=== PATIENT | female | born 1965 | race Two or more races ===

== ENCOUNTER 2020-05-10 12:50 | Outpatient (REF) | payer OTHER, SELFPAY ==
[2020-05-10 14:01] LABS: MANUAL DIFF FLAG NO
[2020-05-10 14:07] LABS: Basophils Percent Auto 0.6 % (0-2); Eosinophils Absolute Auto 0.1 X10*3/uL (0.0-0.4); Eosinophils Percent Auto 1.7 % (0-4); Hematocrit 39.4 % (37-47); Hemoglobin 11.6 g/dl (12.0-16.0); Imm Gran Abs Auto 0.02 X10*3/uL (0.00-0.03); Imm Gran Pct Auto 0.3 % (0.0-0.4); Lymphocytes Absolute Auto 2.4 X10*3/uL (1.2-4.9); Mean Corpuscular HGB Conc 29.4 g/dl (31.0-35.0); Mean Corpuscular Hemoglobin 24.1 pg (27.0-33.0); Mean Corpuscular Volume 81.7 fL (80-98); Mean Platelet Volume 9.6 fL (9.4-12.3); Monocytes Absolute Auto 0.6 X10*3/uL (0.1-1.2); Monocytes Percent Auto 8.9 % (2-11); Neutrophils Absolute Auto 3.8 X10*3/uL (2.0-8.3); Neutrophils Percent Auto 54.5 % (45-73); Platelet Count 418 X10*3/uL (160-400); Red Blood Count 4.82 X10*6/uL (4.20-5.50); Red Cell Distribution Width 14.1 % (11.0-16.0); White Blood Count 7.1 X10*3/uL (4.8-10.8)
[2020-05-10 14:40] LABS: Alanine Aminotransferase 14 U/L (0-31); Albumin Level 4.1 g/dL (3.5-5.0); Alkaline Phosphatase 183 U/L (39-117); Anion Gap 10 (12-20); Aspartate Amino Transferase 18 U/L (5-31); Bilirubin Total 0.5 mg/dL (0.0-1.0); Blood Urea Nitrogen 11 mg/dL (9-16); Calcium 9.1 mg/dL (8.4-10.2); Carbon Dioxide 28 mmol/L (22-29); Chloride 107 mmol/L (96-108); Cholesterol 172 mg/dL; Estimated Glomerular Filt Rate > 60; Glucose Fasting 69 mg/dL (60-99); HDL Cholesterol 62 mg/dL; Iron 40 mcg/dL (30-160); LDL Cholesterol Calculated 96 mg/dl; Percent Iron Saturation 8 % (15-50); Sodium 141 mmol/L (135-145); Total Iron Binding Capacity 503 mcg/dL (228-428); Total Protein 6.7 g/dL (6.5-8.0); Triglycerides 74 mg/dL; Unsaturated Iron Binding 463 ug/dL
[2020-05-10 15:02] LABS: Ferritin 4 ng/mL (10-250); Thyroid Stimulating Hormone 1.36 mIU/mL (0.32-4.0)
== END 2020-05-10 12:51 | disposition home or self-care (01) ==
LOC: HO.HMGCLDS 12:50
PROVIDERS: PCP Physician Assistant; Visit Provider Physician Assistant
DX: I10 Essential (primary) hypertension (principal); D50.9 Iron deficiency anemia, unspecified
CPT/HCPCS: 36415; 80053; 80061; 82728; 83540; 84443; 85025

== ENCOUNTER 2021-10-15 12:50 | Outpatient (REF) | payer OTHER, SELFPAY | END 2021-10-15 12:51 | disposition home or self-care (01) | LOC: HO.MRI 12:50 | PROVIDERS: PCP Internal Medicine; Visit Provider Internal Medicine | DX: Z13.89 Encounter for screening for other disorder (principal) ==

== ENCOUNTER 2021-11-21 11:11 | Outpatient (REF) | payer OTHER, SELFPAY ==
--- NOTE | ~2021-11-21 | XR_ITS ---
EXAMINATION: XR CHEST CLINICAL INFORMATION: Pneumonia. COMPARISON: None TECHNIQUE: 2 views of the chest were obtained. FINDINGS: There is some central bronchial wall thickening present which may be related to pulmonary vascular congestion or reactive airways disease which may be inflammatory or infectious in nature such as viral or atypical pneumonitis. The cardiopericardial silhouette is enlarged. No evidence of airspace edema. No confluent parenchymal disease. No pneumothorax or pleural effusion. XR/XR chest 2V IMPRESSION: Mild central interstitial disease which may be related to pulmonary vascular congestion or reactive airways disease. Cardiomegaly.
== END 2021-11-21 11:12 | disposition home or self-care (01) ==
LOC: HO.XRAY 11:11
PROVIDERS: PCP Internal Medicine; Visit Provider Internal Medicine
DX: J18.9 Pneumonia, unspecified organism (principal)
CPT/HCPCS: 71046

== ENCOUNTER 2022-01-08 13:59 | Outpatient (REF) | payer OTHER, SELFPAY ==
--- NOTE | ~2022-01-08 | XR_ITS ---
EXAMINATION: XR CHEST CLINICAL INFORMATION: Dyspnea. COMPARISON: None TECHNIQUE: Chest radiograph dated from 11/21/2021. FINDINGS: Stable cardiomegaly. Worsening pulmonary aeration with increased central vasculature engorgement and reticulation. No dense focal airspace opacity. No pleural effusion or pneumothorax. No acute osseous abnormalities. XR/XR chest 2V IMPRESSION: Increased interstitial prominence and central vasculature engorgement which are nonspecific and could be associated with worsening pulmonary edema or atypical infections.
== END 2022-01-08 14:00 | disposition home or self-care (01) ==
LOC: HO.XRAY 13:59
PROVIDERS: PCP Internal Medicine; Visit Provider Internal Medicine Pulmonary Disease
DX: R06.00 Dyspnea, unspecified (principal); G47.33 Obstructive sleep apnea (adult) (pediatric)
CPT/HCPCS: 71046; 99202

== ENCOUNTER → 2022-02-05 12:31 | Outpatient (REF) | payer OTHER, SELFPAY | LOC: HO.SL 12:31 | PROVIDERS: PCP Internal Medicine; Visit Provider Internal Medicine Pulmonary Disease | DX: G47.33 Obstructive sleep apnea (adult) (pediatric) (principal); R06.00 Dyspnea, unspecified | CPT/HCPCS: 95806 ==

== ENCOUNTER → 2022-03-03 13:42 | Outpatient (REF) | payer OTHER, SELFPAY ==
--- NOTE | 2022-03-03 13:45 | CA_ITS ---
Transthoracic Echocardiogram Patient (Last, First, Middle): Montserrat Yates, Gender: Female Date of : 1965 Age: 56 Procedure Date: 03/03/2022 Procedure Type: Transthoracic Echocardiogram Location: OP Height: 152.4 cm Weight: 83.92 kg BSA: 1.81 m2 Heart Rate: bpm BP: 134 / 79 mmHg Mill Stenciler: Referring MD: Noe Puga MD Symptoms: R06.00 - Dyspnea, unspecified Study Quality: Fair ECG Rhythm: Sinus Conclusions: - The left ventricular systolic function is severely decreased. The calculated ejection fraction is 11% by biplane method. - There is mild mitral valve regurgitation. - Mild pulmonary hypertension is present. Findings Procedure Information Contrast agent, definity, is being given per protocol without apparent complications. Left Ventricle Moderately increased left ventricular cavity size. There is normal left ventricular wall thickness. The left ventricular systolic function is severely decreased. The calculated ejection fraction is 11% by biplane method. There is severe global hypokinesis. E/E prime ratio is >15, consistent with elevated filling pressures. Evidence suggests grade II (moderate) diastolic dysfunction. Right Ventricle Normal right ventricular cavity size and systolic function. Atria The left atrium is moderately dilated. The right atrium is normal in size. Aortic Valve There is a normal trileaflet aortic valve. There is no aortic valve stenosis. There is trace (trivial) aortic valve regurgitation. Mitral Valve The mitral valve appears normal. There is mild mitral valve regurgitation. There is no mitral valve stenosis. Pulmonic Valve The pulmonic valve is likely normal. Tricuspid Valve Normal tricuspid valve structure. There is mild tricuspid valve regurgitation. The right ventricular systolic pressure is 47 mmHg. Mild pulmonary hypertension is present. Great Vessels The aortic annulus, sinuses of valsalva, and asc aorta are normal in size. Venous The inferior vena cava is mildly dilated and collapses less than 50% with inspiration. Pericardium/Pleural There is a trivial pericardial effusion. Prior Study Comparison No prior study available for comparison. [facility] Measurements 2D Linear Measurements IVSd: 0.90 0.6-0.9/0.6-1.0 cm LVIDd: 6.53 3.9-5.3/4.2-5.9 cm LVIDd Index: 3.61 2.4-3.2/2.2-3.1 cm/m2 LVIDs: 5.81 2.0-3.6 cm LVPWd: 0.91 0.7-1.1 cm Ao Root: 2.80 2.1-3.5 cm LA Diam: 4.30 2.7-3.8/3.0-4.0 cm LAIDs Index: 2.38 1.5-2.3 cm/m2 LV Mass: 311.98 67-162/88-224 g LV Mass Index: 172.36 43-95/49-115 g/m2 LVOT Diam: 1.90 3.0+(-)1.3 cm 2D Systolic Function EF 4C: 12.20 >55% EF 2C: 9.82 >55% EF BiP: 10.90 >55% Mitral Valve MV Pk E: 1.21 MV PK A: 1.03 MV Decel Time: 100.00 E/A: 1.20 E'Lateral: 6.85 E'Medial: 6.85 E/E' Med: 17.70 E/E' Lat: 17.70 PHT: 29.00 MVA PHT: 7.59 Decel Baker: 12.04 Aortic Valve AoV Pk Edgardo: 1.26 AoV Mn Edgardo: 0.81 AoV VTI: 0.22 AoV Pk Grad: 6.00 Aov Mn Grad: 3.00 MADELINE Cont.VTI: 1.74 LVOT LVOT Pk Edgardo: 0.70 LVOT Mn Edgardo: 0.48 LVOT VTI: 0.14 LVOT Pk Grad: 2.00 LVOT Mn Grad: 1.00 LVOT Diam: 1.90 LVOT Area: 2.84 Diastolic Function MV Pk E: 1.21 MV Pk A: 1.03 E/A: 1.20 E'Medial: 6.85 E/E' Med: 17.70 E' Laterial: 6.85 E/E' Lat: 17.70 Right Ventricle TAPSE (mm): 22.00 TVS' Edgardo: 9.00 Tricuspid Valve TR Pk Edgardo: 2.84 TR Pk Grad: 32.00 RA Press: 15.00 RVSP: 47.00 Great Vessels Aorta Ao Root-2D: 2.80 2.0-3.7 cm Ao Asc: 3.00 2.1-3.4 cm Pulmonary Valve PV Pk Edgardo: 0.98 Peak PV Grad: 4.00 Updated in Other Vendor System with Status of Final Luis Erickson MD electronically signed on 03/04/2022 11:14:33 AM with status of Final
== END ==
LOC: HO.CARD 13:42
PROVIDERS: PCP Internal Medicine; Visit Provider Internal Medicine Pulmonary Disease
DX: R06.00 Dyspnea, unspecified (principal)
CPT/HCPCS: 93306; Q9957

== ENCOUNTER → 2022-03-05 13:46 | Outpatient (BNVA) | payer OTHER, SELFPAY | PROVIDERS: PCP Internal Medicine; Visit Provider Internal Medicine | DX: I42.9 Cardiomyopathy, unspecified (principal); I11.0 Hypertensive heart disease with heart failure; I50.43 Acute on chronic combined systolic (congestive) and diastolic (congestive) heart failure; I44.7 Left bundle-branch block, unspecified | CPT/HCPCS: 93005; 99202 ==

== ENCOUNTER 2022-04-02 13:32 | Outpatient (REF) | payer OTHER, SELFPAY ==
[2022-04-02 15:50] LABS: Hematocrit 36.2 % (37.0-47.0); Hemoglobin 10.2 g/dl (12.0-16.0); Mean Corpuscular HGB Conc 28.2 g/dl (31.0-35.0); Mean Corpuscular Hemoglobin 20.5 pg (27.0-33.0); Mean Corpuscular Volume 72.8 fL (80.0-98.0); Mean Platelet Volume 9.8 fL (9.4-12.3); Platelet Count 498 X10*3/uL (160-400); Red Blood Count 4.97 X10*6/uL (4.20-5.50); White Blood Count 7.1 X10*3/uL (4.8-10.8)
[2022-04-02 15:53] LABS: Prothrombin Time 11.3 SEC (10.0-13.1)
[2022-04-02 16:13] LABS: Anion Gap 15 (12-20); Blood Urea Nitrogen 12 mg/dL (9-16); Calcium 8.6 mg/dL (8.4-10.2); Carbon Dioxide 25 mmol/L (22-29); Chloride 104 mmol/L (96-108); Estimated Glomerular Filt Rate > 60; Glucose Random 99 mg/dL (60-115); Potassium 4.2 mmol/L (3.3-5.1); Sodium 140 mmol/L (135-145)
== END 2022-04-02 13:33 | disposition home or self-care (01) ==
LOC: HO.LAB 13:32
PROVIDERS: Absent Provider Internal Medicine; PCP Internal Medicine; Visit Provider Internal Medicine Pulmonary Disease
DX: I42.9 Cardiomyopathy, unspecified (principal); R06.00 Dyspnea, unspecified; G47.33 Obstructive sleep apnea (adult) (pediatric)
CPT/HCPCS: 36415; 80048; 85027; 85610; 99212

== ENCOUNTER 2022-05-20 12:37 | Outpatient (REF) | payer OTHER, SELFPAY ==
[2022-05-20 13:03] LABS: MANUAL DIFF FLAG NO
[2022-05-20 13:58] LABS: Basophils Percent Auto 0.3 % (0-2); Eosinophils Absolute Auto 0.1 X10*3/uL (0.0-0.4); Eosinophils Percent Auto 1.1 % (0-4); Hematocrit 32.7 % (37.0-47.0); Hemoglobin 9.3 g/dl (12.0-16.0); Imm Gran Abs Auto 0.02 X10*3/uL (0.00-0.03); Imm Gran Pct Auto 0.3 % (0.0-0.4); Lymphocytes Percent Auto 28.2 % (20-40); Mean Corpuscular HGB Conc 28.4 g/dl (31.0-35.0); Mean Corpuscular Hemoglobin 20.3 pg (27.0-33.0); Mean Corpuscular Volume 71.2 fL (80.0-98.0); Mean Platelet Volume 9.4 fL (9.4-12.3); Monocytes Absolute Auto 0.5 X10*3/uL (0.1-1.2); Monocytes Percent Auto 7.4 % (2-11); Neutrophils Absolute Auto 4.5 x10*3/uL (2.0-8.3); Neutrophils Percent Auto 62.7 % (45-73); Platelet Count 397 X10*3/uL (160-400); Red Blood Count 4.59 X10*6/uL (4.20-5.50); Red Cell Distribution Width 18.5 % (11.0-16.0); White Blood Count 7.1 X10*3/uL (4.8-10.8)
[2022-05-20 14:01] LABS: Prothrombin Time 11.9 SEC (10.0-13.1)
[2022-05-20 14:13] LABS: Anion Gap 13 (12-20); Blood Urea Nitrogen 16 mg/dL (9-16); Calcium 8.4 mg/dL (8.4-10.2); Carbon Dioxide 25 mmol/L (22-29); Chloride 105 mmol/L (96-108); Estimated Glomerular Filt Rate > 60; Glucose Random 130 mg/dL (60-115); Potassium 4.1 mmol/L (3.3-5.1); Sodium 139 mmol/L (135-145)
== END 2022-05-20 12:38 | disposition home or self-care (01) ==
LOC: HO.LAB 12:37
PROVIDERS: PCP Internal Medicine; Visit Provider Internal Medicine
DX: I42.9 Cardiomyopathy, unspecified (principal)
CPT/HCPCS: 36415; 80048; 85025; 85610

== ENCOUNTER → 2022-06-08 12:23 | Outpatient (BNVA) | payer OTHER, SELFPAY | PROVIDERS: PCP Internal Medicine; Referring Provider Internal Medicine; Visit Provider Internal Medicine | DX: I42.9 Cardiomyopathy, unspecified (principal); I44.7 Left bundle-branch block, unspecified; I10 Essential (primary) hypertension | CPT/HCPCS: 99212 ==

== ENCOUNTER → 2022-06-10 07:34 | Outpatient (REF) | payer OTHER, SELFPAY ==
--- NOTE | 2022-06-10 07:39 | CA_ITS ---
Transthoracic Echocardiogram Patient (Last, First, Middle): Montserrat Yates, Gender: Female Date of : 1965 Age: 56 Procedure Date: 06/10/2022 Procedure Type: Transthoracic Echocardiogram Location: OP Height: 152.4 cm Weight: 81.65 kg BSA: 1.78 m2 Heart Rate: 104 bpm BP: 115 / 80 mmHg Global Technical Writer: RODRI Referring MD: Lusi Erickson MD Symptoms: I42.9 - Cardiomyopathy, unspecified Study Quality: Fair/Contrast ECG Rhythm: Tachycardia Conclusions: - The left ventricular systolic function is severely decreased. The visually estimated ejection fraction is between 10-15%. Findings Procedure Information Contrast agent, definity, is being given per protocol without apparent complications. Left Ventricle Moderately increased left ventricular cavity size. The left ventricular systolic function is severely decreased. The visually estimated ejection fraction is between 10-15%. There is severe global hypokinesis. Prior Study Comparison No significant change compared to prior study dated: 03/03/2022. Measurements 2D Linear Measurements IVSd: 0.79 0.6-0.9/0.6-1.0 cm LVIDd: 6.46 3.9-5.3/4.2-5.9 cm LVIDd Index: 3.63 2.4-3.2/2.2-3.1 cm/m2 LVIDs: 6.29 2.0-3.6 cm LVPWd: 0.99 0.7-1.1 cm LV Mass: 302.12 67-162/88-224 g LV Mass Index: 169.73 43-95/49-115 g/m2 LVOT Diam: 1.90 3.0+(-)1.3 cm 2D Systolic Function EF 4C: 22.40 >55% EF 2C: 8.62 >55% EF BiP: 16.50 >55% LVOT LVOT Pk Edgardo: 1.01 LVOT Mn Edgardo: 0.68 LVOT VTI: 0.12 LVOT Pk Grad: 4.00 LVOT Mn Grad: 2.00 LVOT Diam: 1.90 LVOT Area: 2.84 Updated in Other Vendor System with Status of Final Luis Erickson MD electronically signed on 06/11/2022 4:02:34 PM with status of Final
== END ==
LOC: HO.CARD 07:34
PROVIDERS: PCP Internal Medicine; Visit Provider Internal Medicine
DX: I42.9 Cardiomyopathy, unspecified (principal)
CPT/HCPCS: 93308; Q9957

== ENCOUNTER 2022-08-27 09:52 | Outpatient (REF) | payer OTHER, SELFPAY ==
[2022-08-27 10:07] LABS: MANUAL DIFF FLAG NO
[2022-08-27 11:03] LABS: Basophils Percent Auto 0.6 % (0-2); Eosinophils Absolute Auto 0.2 X10*3/uL (0.0-0.4); Eosinophils Percent Auto 2.2 % (0-4); Hematocrit 36.8 % (37.0-47.0); Hemoglobin 10.3 g/dl (12.0-16.0); Imm Gran Abs Auto 0.02 X10*3/uL (0.00-0.03); Imm Gran Pct Auto 0.3 % (0.0-0.4); Lymphocytes Absolute Auto 1.7 X10*3/uL (1.2-4.9); Lymphocytes Percent Auto 25.1 % (20-40); Mean Corpuscular Hemoglobin 20.2 pg (27.0-33.0); Mean Platelet Volume 9.4 fL (9.4-12.3); Monocytes Absolute Auto 0.7 X10*3/uL (0.1-1.2); Monocytes Percent Auto 10.8 % (2-11); Neutrophils Absolute Auto 4.2 x10*3/uL (2.0-8.3); Platelet Count 299 X10*3/uL (160-400); Red Blood Count 5.11 X10*6/uL (4.20-5.50); Red Cell Distribution Width 21.5 % (11.0-16.0); White Blood Count 6.9 X10*3/uL (4.8-10.8)
[2022-08-27 11:05] LABS: B Type Natriuretic Peptide 596 pg/mL (<100)
[2022-08-27 11:06] LABS: Anion Gap 10 (12-20); Blood Urea Nitrogen 12 mg/dL (9-16); Calcium 8.9 mg/dL (8.4-10.2); Carbon Dioxide 27 mmol/L (22-29); Chloride 106 mmol/L (96-108); Estimated Glomerular Filt Rate > 60; Glucose Random 89 mg/dL (60-115); Potassium 4.6 mmol/L (3.3-5.1); Sodium 138 mmol/L (135-145)
== END 2022-08-27 09:53 | disposition home or self-care (01) ==
LOC: HO.LAB 09:52
PROVIDERS: PCP Internal Medicine; Visit Provider Internal Medicine
DX: I42.9 Cardiomyopathy, unspecified (principal); D64.9 Anemia, unspecified; K21.9 Gastro-esophageal reflux disease without esophagitis; I44.7 Left bundle-branch block, unspecified; I10 Essential (primary) hypertension; Z95.810 Presence of automatic (implantable) cardiac defibrillator; Z79.899 Other long term (current) drug therapy
CPT/HCPCS: 36415; 80048; 83880; 85025; 99212

== ENCOUNTER → 2022-11-16 13:47 | Outpatient (BNVA) | payer OTHER, SELFPAY | PROVIDERS: PCP Internal Medicine; Visit Provider Internal Medicine ==

== ENCOUNTER → 2022-12-14 13:10 | Outpatient (BNVA) | payer OTHER, SELFPAY | PROVIDERS: PCP Internal Medicine; Referring Provider Internal Medicine; Visit Provider Nurse Practitioner Family | DX: I42.9 Cardiomyopathy, unspecified (principal); I44.7 Left bundle-branch block, unspecified; I11.0 Hypertensive heart disease with heart failure; I50.43 Acute on chronic combined systolic (congestive) and diastolic (congestive) heart failure; Z45.02 Encounter for adjustment and management of automatic implantable cardiac defibrillator | CPT/HCPCS: 99212 ==

== ENCOUNTER → 2022-12-23 14:29 | Outpatient (REF) | payer OTHER, SELFPAY ==
--- NOTE | 2022-12-23 14:32 | CA_ITS ---
Transthoracic Echocardiogram Patient (Last, First, Middle): Montserrat Yates, Gender: Female Date of : 1965 Age: 57 Procedure Date: 12/23/2022 Procedure Type: Transthoracic Echocardiogram Location: OP Height: 149.86 cm Weight: 88.45 kg BSA: 1.82 m2 Heart Rate: bpm BP: 116 / 68 mmHg Dressmaking Teacher: TO Referring MD: Cathy Mc CHIEF CARDIOPULMONARY TECHNOLOGISTMolly Symptoms: I42.9 - Cardiomyopathy, unspecified Study Quality: Fair/Contrast Conclusions: - The left ventricular systolic function is severely decreased. The visually estimated ejection fraction is between 10-15%. Findings Procedure Information Contrast agent, definity, is being given per protocol without apparent complications. Left Ventricle Severely increased left ventricular cavity size. The left ventricular systolic function is severely decreased. The visually estimated ejection fraction is between 10-15%. Venous The inferior vena cava is normal in size and collapses greater than 50% with inspiration. Prior Study Comparison No significant change compared to prior study dated: 06/10/2022. Measurements 2D Linear Measurements IVSd: 1.08 0.6-0.9/0.6-1.0 cm LVIDd: 6.55 3.9-5.3/4.2-5.9 cm LVIDd Index: 3.60 2.4-3.2/2.2-3.1 cm/m2 LVIDs: 5.63 2.0-3.6 cm LVPWd: 0.84 0.7-1.1 cm LV Mass: 338.58 67-162/88-224 g LV Mass Index: 186.03 43-95/49-115 g/m2 LVOT Diam: 1.80 3.0+(-)1.3 cm 2D Systolic Function EF 4C: 23.80 >55% EF 2C: 17.60 >55% LVOT LVOT Pk Edgardo: 0.69 LVOT Mn Edgardo: 0.48 LVOT VTI: 0.12 LVOT Pk Grad: 2.00 LVOT Mn Grad: 1.00 LVOT Diam: 1.80 LVOT Area: 2.54 Tricuspid Valve RA Press: 3.00 Updated in Other Vendor System with Status of Final Luis Erickson MD electronically signed on 12/24/2022 11:44:04 AM with status of Final
[2022-12-23 15:54] LABS: MANUAL DIFF FLAG NO
[2022-12-23 16:09] LABS: Basophils Percent Auto 0.4 % (0-2); Eosinophils Absolute Auto 0.1 X10*3/uL (0.0-0.4); Eosinophils Percent Auto 1.9 % (0-4); Hematocrit 34.6 % (37.0-47.0); Hemoglobin 9.8 g/dl (12.0-16.0); Imm Gran Abs Auto 0.01 X10*3/uL (0.00-0.03); Imm Gran Pct Auto 0.1 % (0.0-0.4); Lymphocytes Absolute Auto 2.1 X10*3/uL (1.2-4.9); Mean Corpuscular HGB Conc 28.3 g/dl (31.0-35.0); Mean Corpuscular Hemoglobin 20.3 pg (27.0-33.0); Mean Corpuscular Volume 71.6 fL (80.0-98.0); Mean Platelet Volume 9.8 fL (9.4-12.3); Monocytes Absolute Auto 0.8 X10*3/uL (0.1-1.2); Monocytes Percent Auto 10.6 % (2-11); Neutrophils Absolute Auto 4.4 x10*3/uL (2.0-8.3); Platelet Count 339 X10*3/uL (160-400); Red Blood Count 4.83 X10*6/uL (4.20-5.50); Red Cell Distribution Width 17.8 % (11.0-16.0); White Blood Count 7.5 X10*3/uL (4.8-10.8)
[2022-12-23 16:38] LABS: B Type Natriuretic Peptide 633 pg/mL (<100)
[2022-12-23 16:49] LABS: Anion Gap 13 (12-20); Blood Urea Nitrogen 18 mg/dL (9-16); Calcium 8.8 mg/dL (8.4-10.2); Carbon Dioxide 26 mmol/L (22-29); Chloride 107 mmol/L (96-108); Estimated Glomerular Filt Rate > 60; Glucose Random 95 mg/dL (60-115); Potassium 4.5 mmol/L (3.3-5.1); Sodium 141 mmol/L (135-145)
== END ==
LOC: HO.CARD 14:29
PROVIDERS: Visit Provider Nurse Practitioner Family
DX: I11.0 Hypertensive heart disease with heart failure (principal); I50.43 Acute on chronic combined systolic (congestive) and diastolic (congestive) heart failure; I42.9 Cardiomyopathy, unspecified; Z95.810 Presence of automatic (implantable) cardiac defibrillator
CPT/HCPCS: 36415; 80048; 83880; 85025; 93308; Q9957

== ENCOUNTER → 2023-02-07 23:59 | Outpatient (BNV) | payer OTHER, SELFPAY ==
--- NOTE | 2023-02-16 12:29 | A.OFFVIS_ITS ---
Intake Intake Visit Reasons: Remote ICD Check- Med[employer] Allergies gabapentin Allergy (Intermediate, Verified 12/14/22 13:42) memory loss ibuprofen Allergy (Intermediate, Verified 12/14/22 13:42) abdominal pain celecoxib [Celebrex] Allergy (Unknown, Verified 12/14/22 13:42) Unknown [facility] Medical History (Updated 08/27/22 @ 14:08 by Luis Erickson MD) Biventricular ICD (implantable cardioverter-defibrillator) in place GERD (gastroesophageal reflux disease) Hospital discharge follow-up Mild recurrent major depression Moderate asthma Pacemaker Pneumonia Surgical History History of gastric bypass History of hip replacement History of hip replacement, total S/P cardiac cath Family History Father No problems noted. Mother No problems noted. Son No problems noted. Daughter No problems noted. Son No problems noted. Social History Housing: Apartment Alcohol intake: never Patient Tobacco Use Status: Never used Tobacco e-Cigarette/Vaping Use: Never Used Second Hand Smoke Exposure: No service: No Current occupational status: disabled Cognitive needs: No Hearing needs: No Vision needs: No Office Procedures Cardiac Device Check Cardiac Device Check Details: Date of service 02/07/2023; Battery life >8 years; normal lead parameters; no treated VT/VF; adequate Biv pacing; normal ICD function. [id number] Cardiac Interrogation, implant defibrillator w/interim Procedure code (CPT) selection complete Assessment & Plan Assessment & Plan (1) Cardiomyopathy: Code(s): I42.9 - Cardiomyopathy, unspecified Coding Level of Care Code Procedure Only Diagnoses Cardiomyopathy I42.9 CPT Codes Cardiac Device Check - Cardiac Device 13: [id number] Cardiac Interrogation, implant defibrillator w/interim ([id number])
== END ==
PROVIDERS: PCP Internal Medicine; Visit Provider Internal Medicine
DX: I42.9 Cardiomyopathy, unspecified (principal); Z95.810 Presence of automatic (implantable) cardiac defibrillator
CPT/HCPCS: 93295

== ENCOUNTER → 2023-02-07 23:59 | Outpatient (BNV) | payer OTHER, SELFPAY ==
--- NOTE | 2023-02-17 14:13 | A.OFFVIS_ITS ---
Intake Intake Visit Reasons: Remote HF Monitoring- Medtr[employer] Allergies gabapentin Allergy (Intermediate, Verified 12/14/22 13:42) memory loss ibuprofen Allergy (Intermediate, Verified 12/14/22 13:42) abdominal pain celecoxib [Celebrex] Allergy (Unknown, Verified 12/14/22 13:42) Unknown [facility] Medical History (Updated 08/27/22 @ 14:08 by Luis Erickson MD) Biventricular ICD (implantable cardioverter-defibrillator) in place GERD (gastroesophageal reflux disease) Hospital discharge follow-up Mild recurrent major depression Moderate asthma Pacemaker Pneumonia Surgical History History of gastric bypass History of hip replacement History of hip replacement, total S/P cardiac cath Family History Father No problems noted. Mother No problems noted. Son No problems noted. Daughter No problems noted. Son No problems noted. Social History Housing: Apartment Alcohol intake: never Patient Tobacco Use Status: Never used Tobacco e-Cigarette/Vaping Use: Never Used Second Hand Smoke Exposure: No service: No Current occupational status: disabled Cognitive needs: No Hearing needs: No Vision needs: No Office Procedures Cardiac Device Check Cardiac Device Check Details: Date of service- 02/07/2023; based on impedance data and physiological variables, there is no evidence of worsening congestive heart failure. Patient activity 4hrs/day. [id number] Cardiac Device Interrogation, cardio physiologic monitor Procedure code (CPT) selection complete Assessment & Plan Assessment & Plan (1) Cardiomyopathy: Code(s): I42.9 - Cardiomyopathy, unspecified Coding Level of Care Code Procedure Only Diagnoses Cardiomyopathy I42.9 CPT Codes Cardiac Device Check - Cardiac Device 15: [id number] Cardiac Device Interrogation, cardio physiologic monitor ([id number])
== END ==
PROVIDERS: PCP Internal Medicine; Visit Provider Internal Medicine
DX: I50.43 Acute on chronic combined systolic (congestive) and diastolic (congestive) heart failure (principal); Z95.810 Presence of automatic (implantable) cardiac defibrillator
CPT/HCPCS: 93297

== ENCOUNTER 2023-03-30 19:23 | Inpatient (IN) | payer OTHER, SELFPAY ==
--- NOTE | ~2023-03-30 | CT_ITS ---
EXAMINATION: CT ANGIOGRAM OF THE CHEST WITH AND WITHOUT CONTRAST (CT PULMONARY ANGIOGRAM FOR PE) CLINICAL INFORMATION: Reason for Exam elevated d dimer - 331, cp COMPARISON: None available. TECHNIQUE: Prior to contrast administration, noncontrast localization images were obtained. Subsequently, multidetector volumetric imaging was performed from the thoracic inlet to below the diaphragms following the administration of 65 mL Omnipaque 350 intravenous contrast. No contrast reaction reported Sagittal, coronal, and MIP oblique sagittal reformatted images were obtained on the CT workstation, uploaded to PACS, and reviewed. This CT examination was performed using dose optimization techniques as appropriate, variously including the following: *Automated exposure control *Adjustment of mA and/or kV according to patient size (this includes techniques or standardized protocols for targeted exams where dose is matched to indication/reason for exam; i.e. extremities or head) *Use of iterative reconstruction technique Total exam dose-length product 404 mGy-cm FINDINGS: QUALITY OF STUDY/CONTRAST BOLUS: Satisfactory. PULMONARY ARTERIES: Suboptimal assessment of the segmental vasculature in some regions due to motion artifact, especially the left lower lobe. Otherwise, no central or segmental pulmonary embolus is seen. THORACIC AORTA: No aneurysm. LUNG: No dense consolidation bilaterally. Subtle mosaic attenuation appearance of the lungs could reflect sequelae of an expiratory phase scan. PLEURA: No pleural effusion or pneumothorax. MEDIASTINUM: Visualized thyroid gland is grossly unremarkable. No discrete mediastinal lymphadenopathy is seen. There is cardiomegaly without pericardial effusion. Left-sided pacemaker/AICD lead tips extend to the right atrium, right ventricle, and coronary sinus. No evidence of septal bowing or right heart strain. CORONARY ARTERY CALCIFICATION: None visualized on this study. CHEST WALL/AXILLA: Borderline enlarged left axillary lymph node, nonspecific. OSSEOUS STRUCTURES: Multilevel endplate osteophytes in the spine. UPPER ABDOMEN: Unremarkable. No reflux of contrast into the hepatic veins to suggest elevated right heart pressures. CT/CT angio chest PE protocol IMPRESSION: 1. No pulmonary embolus identified. Of note, there is limited evaluation of the segmental vessels in the left lower lobe due to motion artifact. 2. Cardiomegaly. 3. Borderline enlarged left axillary lymph node, nonspecific. Correlation with recent or follow-up screening mammography is recommended. VTE: negative.
[2023-03-30 19:26] VITALS: BP 119/75; PULSE 82; O2SAT 100
--- NOTE | 2023-03-30 19:28 | ECG_ITS ---
Test Reason : chest pain Blood Pressure : / mmHG Vent. Rate : 077 BPM Atrial Rate : 077 BPM P-R Int : 142 ms QRS Dur : 170 ms QT Int : 456 ms P-R-T Axes : 054 202 020 degrees QTc Int : 516 ms Atrial-sensed ventricular-paced rhythm Abnormal ECG No previous ECGs available Referred By: Generic ED Physician Electronically Signed By:TAWANA JOYNER
[2023-03-30 19:37] VITALS: BP 121/74; PULSE 74; RESP 14; TEMP 36.8; O2SAT 98; BMI 41.9
--- NOTE | 2023-03-30 19:41 | MHC.EDTECH ---
PATIENT CAME IN VIA EMS ,EKG TAKEN AND WAS READ BY PROVIDER ,PT WAS HOOKED UP TO PRESIDENT AND CHIEF COMMERCIAL OFFICER ,VITALS SIGN TAKEN AND PATIENT WAS CHANGE INTO HOSPITAL ATTIRE .
[2023-03-30 19:49] VITALS: BP 120/73; PULSE 76; RESP 16; TEMP 36.7; O2SAT 98
--- NOTE | 2023-03-30 19:50 | MHC.EDTECH ---
PATIENT BLOOD DRAWN AND SENT TO LAB ,1999 VITALS SIGN TAKEN ,PT RESTING QUIETLY IN BED ,WAITING TO BE SEEN BY PROVIDER .
[2023-03-30 19:51] LABS: MANUAL DIFF FLAG NO
[2023-03-30 19:54] LABS: Basophils Percent Auto 0.4 % (0-2); Eosinophils Absolute Auto 0.1 X10*3/uL (0.0-0.4); Eosinophils Percent Auto 1.6 % (0-4); Hematocrit 33.7 % (37.0-47.0); Hemoglobin 9.4 g/dl (12.0-16.0); Imm Gran Abs Auto 0.02 X10*3/uL (0.00-0.03); Imm Gran Pct Auto 0.3 % (0.0-0.4); Lymphocytes Absolute Auto 2.4 X10*3/uL (1.2-4.9); Lymphocytes Percent Auto 31.5 % (20-40); Mean Corpuscular HGB Conc 27.9 g/dl (31.0-35.0); Mean Corpuscular Hemoglobin 19.3 pg (27.0-33.0); Mean Corpuscular Volume 69.1 fL (80.0-98.0); Mean Platelet Volume 9.5 fL (9.4-12.3); Monocytes Absolute Auto 0.9 X10*3/uL (0.1-1.2); Monocytes Percent Auto 11.8 % (2-11); Neutrophils Absolute Auto 4.2 x10*3/uL (2.0-8.3); Neutrophils Percent Auto 54.4 % (45-73); Platelet Count 311 X10*3/uL (160-400); Red Blood Count 4.88 X10*6/uL (4.20-5.50); Red Cell Distribution Width 18.1 % (11.0-16.0); White Blood Count 7.7 X10*3/uL (4.8-10.8)
[2023-03-30 20:13] LABS: Anion Gap 14 (12-20); Blood Urea Nitrogen 17 mg/dL (9-16); Calcium 8.9 mg/dL (8.4-10.2); Carbon Dioxide 21 mmol/L (22-29); Chloride 106 mmol/L (96-108); Creatinine Clr Calc Pharmacy 62.1; Estimated Glomerular Filt Rate 58; Glucose Random 105 mg/dL (60-115); Potassium 4.2 mmol/L (3.3-5.1); Sodium 137 mmol/L (135-145)
[2023-03-30 20:21] LABS: Troponin-I High Sensitivity 19.6 ng/L (<3.5-17.0)
--- NOTE | 2023-03-30 21:05 | PC.NURSE ---
pt reporting worsening chest pressure. ekg and lab work done and ekg signed by provider.. pt is on monitor tech. MD Guzman notified of the worsening chest pains. pt still waiting to be signed up for and seen by ED provider.
--- NOTE | 2023-03-30 21:25 | ED_ITS ---
HPI - Chest Pain General Chief Complaint: Chest Pain Stated Complaint: DIZZY CHEST PAIN Time Seen by Provider: 03/30/23 21:15 Source: patient Mode of arrival: ambulatory Limitations: no limitations History of Present Illness HPI narrative: Patient 57 years old with history of hypertension nonischemic cardiomyopathy congestive heart failure left bundle-branch block status post biventricular ICD placed normal coronaries in coronary angio 05/30 comes with a chest pain. Patient was at a grocery store earlier was doing fine came home was resting at that time got little upset when upset with her kids who were fighting was little anxious and worked up pressure on the left side , comes and goes now feels uncomfortable no nausea no vomiting no shortness of breath, labs were done prior to my evaluation which showed slightly elevated high sensitive troponin to 19.6 with no ischemic changes in the EKG , EMS gave her 4 baby aspirin prior to arrival Related Data Previous Rx's Medication Instructions Recorded blood pressure monitor #1 ea 06/03/20 omeprazole 40 mg capsule,delayed 40 mg PO DAILY 90 days #90 caps 12/12/21 release topiramate 50 mg tablet 50 mg PO DAILY #30 tabs 12/12/21 albuterol sulfate 90 mcg/actuation 2 puff inhalation Q6H PRN 12/17/21 aerosol inhaler shortness of breath or wheezing 30 days #6.7 grams budesonide-formoterol HFA 80 1 inh inhalation BID 30 days #10.2 03/05/22 mcg-4.5 mcg/actuation aerosol grams inhaler furosemide 40 mg tablet (Lasix) 80 mg PO DAILY 90 days #180 tabs 06/08/22 dapagliflozin propanediol 10 mg 10 mg PO QAM #90 tabs 09/18/22 tablet (Farxiga) spironolactone 25 mg tablet 25 mg PO DAILY #90 tabs 09/18/22 sacubitril 24 mg-valsartan 26 mg 1 tab PO BID 90 days #180 tabs 01/22/23 tablet (Entresto) tramadol 50 mg tablet 50 mg PO Q8H pain 30 days #90 tabs 03/18/23 Allergies Allergy/AdvReac Type Severity Reaction Status Date / Time gabapentin Allergy Intermediate memory loss Verified 03/30/23 19:40 ibuprofen Allergy Intermediate abdominal Verified 03/30/23 19:40 pain celecoxib [Celebrex] Allergy Unknown Unknown Verified 03/30/23 19:40 Review of Systems Review of Systems: Yes all other systems are reviewed and are negative [facility] Past Medical History Medical History Biventricular ICD (implantable cardioverter-defibrillator) in place GERD (gastroesophageal reflux disease) Hospital discharge follow-up Mild recurrent major depression Moderate asthma Pacemaker Pneumonia Surgical History History of gastric bypass History of hip replacement History of hip replacement, total S/P cardiac cath Family History Family History Father No problems noted. Mother No problems noted. Son No problems noted. Daughter No problems noted. Son No problems noted. Social History Social History Housing: Apartment Alcohol intake: unknown Patient Tobacco Use Status: Never used Tobacco Smoked in Last 30 Days: No e-Cigarette/Vaping Use: Never Used Second Hand Smoke Exposure: No Use of substances other than those prescribed or required for medical reasons: No Advance Directives: No Advance Directives Information Provided: No Nutrition Risks: No Nutritional Risk Patient : No service: No Current occupational status: disabled Cognitive needs: No Hearing needs: No Vision needs: No Physical Exam Vital Signs: Vital Signs: Last Vital Signs Temp 98.8 F 03/31/23 04:34 Pulse 76 03/31/23 04:34 Resp 16 03/31/23 04:34 BP 108/62 03/31/23 04:34 Pulse Ox 98 03/31/23 04:34 O2 Del Method Room Air 03/31/23 04:34 BMI result Body Mass Index 41.9 Appearance: Alert. Oriented X3. No acute distress. Anxious Eyes: PERRLA, No Nystagmus ENT: Pharynx normal. Oral Mucosa moist Neck: Normal inspection. Neck supple. CVS: Normal heart rate and rhythm. Pulses normal. Respiratory: No respiratory distress. Equal air entry bilateral, no wheezing/r ales/rhonchi Abdomen: Soft and nontender. Bowel sounds are present, no mass palpable, no CVA tenderness Skin: Skin warm and dry. Normal skin color. Normal skin turgor. Extremities: No lower extremity edema. No calf tenderness Neuro: Oriented X 3. No motor deficit. No sensory deficit.No cerebellar signs , cranial nerves II-XII intact Medications Administered Generic Name Dose Route Start Last Admin Trade Name Freq PRN Reason Stop Dose Admin Heparin Sodium/Sodium Chloride 25,000 unit in 250 mls @ 0 mls/hr 03/31/23 00:45 03/31/23 01:45 Heparin Sodium,Porcine/1/2ns IVCONT 10.63 units/kg/hr .Q0M DANG 10 mls/hr Administration Protocol Per Protocol Discontinued Medications Generic Name Dose Route Start Last Admin Trade Name Freq PRN Reason Stop Dose Admin Heparin Sodium (Porcine) 5,000 unit 03/30/23 23:13 03/30/23 23:49 Heparin Sodium,Porcine 5,000 Unit/Ml Vial IVPUSH 03/30/23 23:14 5,000 unit ONCE ONE Administration Iohexol 65 ml 03/31/23 01:21 03/31/23 01:22 Iohexol 350 Mg/Ml 100 Ml Infus..Btl IV 03/31/23 01:22 65 ml ONCE ONE Administration Nitroglycerin 0.5 inch 03/30/23 21:50 03/30/23 21:59 Nitroglycerin 2 % Oint 1 Gm Packet TRANSDERMA 03/30/23 21:51 0.5 inch ONCE ONE Administration Medical Decision Making Medical Decision Making [facility] Narrative: Patient 57 years old with history of hypertension nonischemic cardiomyopathy congestive heart failure left bundle-branch block status post biventricular ICD placed normal coronaries in coronary angio 05/30 comes with chest tightness EKG without any significant changes except for lead [address] depression initial troponin was 19.6 repeat troponin was [address] 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 Patient started on heparin with a heparin drip for non STEMI patient denies any chest pain after nitro paste was applied in the ER patient received aspirin by EMS vitals are stable CT chest done to rule out PE which was negative Differential Diagnosis Differential Diagnoses: The differential diagnosis associated with the presenta tion includes STEMI/non-STEMI/chest wall pain/pulmonary embolism/pneumonia Admission/Observation Consideration of admission/observation: Escalation of care including admission/observation considered Consult Healthcare Provider Management of the patient was discussed with: Hospitalist Lab Data MDM Lab Attestation statement: I reviewed the patient's lab results. 03/30/23 19:47 03/30/23 19:47 Labs: Lab Results 03/30/23 03/30/23 03/30/23 Range/Units 19:47 19:47 19:47 WBC 7.7 (4.8-10.8) X10*3/uL RBC 4.88 (4.20-5.50) X10*6/uL Hgb 9.4 L (12.0-16.0) g/dl Hct 33.7 L (37.0-47.0) % MCV 69.1 L (80.0-98.0) fL MCH 19.3 L (27.0-33.0) pg MCHC 27.9 L (31.0-35.0) g/dl RDW 18.1 H (11.0-16.0) % Plt Count 311 (160-400) X10*3/uL MPV 9.5 (9.4-12.3) fL Immature Gran % (Auto) 0.3 (0.0-0.4) % Neut % (Auto) 54.4 (45-73) % Lymph % (Auto) 31.5 (20-40) % Marin[place] % (Auto) 11.8 H (2-11) % Eos % (Auto) 1.6 (0-4) % Baso % (Auto) 0.4 (0-2) % Lymph # (Auto) 2.4 (1.2-4.9) X10*3/uL [place]ette # (Auto) 0.9 (0.1-1.2) X10*3/uL Eos # (Auto) 0.1 (0.0-0.4) X10*3/uL Baso # (Auto) 0.0 (0.0-0.2) X10*3/uL Abs Immat Gran (auto) 0.02 (0.00-0.03) X10*3/uL Absolute Neuts (auto) 4.2 (2.0-8.3) x10*3/uL Absolute Nucleated RBC 0.000 (0.0-0.012) X10*3/uL Nucleated RBC % (auto) 0.0 (0.0-0.2) /100WBC PT (11.1-13.3) SEC INR (0.9-1.1) APTT (26.0-36.4) SEC D-Dimer High Sensitivty NG/ML Sodium 137 (135-145) mmol/L Potassium 4.2 (3.3-5.1) mmol/L Chloride 106 (96-108) mmol/L Carbon Dioxide 21 L (22-29) mmol/L Anion Gap 14 (12-20) BUN 17 H (9-16) mg/dL Creatinine 0.99 (0.5-1.4) mg/dL Estim Creat Clear Calc 62.1 Estimated GFR 58 Random Glucose 105 (60-115) mg/dL Calcium 8.9 (8.4-10.2) mg/dL Troponin I High Sens 19.6 H (<3.5-17.0) ng/L 03/30/23 03/30/23 03/30/23 Range/Units 22:38 23:29 23:29 WBC (4.8-10.8) X10*3/uL RBC (4.20-5.50) X10*6/uL Hgb (12.0-16.0) g/dl Hct (37.0-47.0) % MCV (80.0-98.0) fL MCH (27.0-33.0) pg MCHC (31.0-35.0) g/dl RDW (11.0-16.0) % Plt Count (160-400) X10*3/uL MPV (9.4-12.3) fL Immature Gran % (Auto) (0.0-0.4) % Neut % (Auto) (45-73) % Lymph % (Auto) (20-40) % Marinette % (Auto) (2-11) % Eos % (Auto) (0-4) % Baso % (Auto) (0-2) % Lymph # (Auto) (1.2-4.9) X10*3/uL Marinette # (Auto) (0.1-1.2) X10*3/uL Eos # (Auto) (0.0-0.4) X10*3/uL Baso # (Auto) (0.0-0.2) X10*3/uL Abs Immat Gran (auto) (0.00-0.03) X10*3/uL Absolute Neuts (auto) (2.0-8.3) x10*3/uL Absolute Nucleated RBC (0.0-0.012) X10*3/uL Nucleated RBC % (auto) (0.0-0.2) /100WBC PT 11.2 (11.1-13.3) SEC INR 0.9 (0.9-1.1) APTT 27.5 (26.0-36.4) SEC D-Dimer High Sensitivty 331 Cancelled NG/ML Sodium (135-145) mmol/L Potassium (3.3-5.1) mmol/L Chloride (96-108) mmol/L Carbon Dioxide (22-29) mmol/L Anion Gap (12-20) BUN (9-16) mg/dL Creatinine (0.5-1.4) mg/dL Estim Creat Clear Calc Estimated GFR Random Glucose (60-115) mg/dL Calcium (8.4-10.2) mg/dL Troponin I High Sens 660.3 H* D (<3.5-17.0) ng/L Independent Interpretation I performed an independent interpretation of an: EKG Interpretation: Ventricular paced rhythm when the rate 77 beats per minute no acute ST-T changes no acute Ischemia External Record Review External record reviewed: Outpatient record Critical Care Time Critical Care Time Critical Care Time: Yes Total Critical Care Time: 60 Attestation: The patient was critically ill with a high probability of imminent or life threatening deterioration. I spent greater than 70 minutes of discontinuous time evaluating the patient,delivering critical care at the bedside, discussing and evaluating pertinent data with consultants. Critical care time does not include time spent performing separately billable procedures or teaching. Total time spent performing critical care was 60 minutes. Discharge Plan Discharge Clinical Impression: Non-ST elevated myocardial infarction (non-STEMI) Patient Disposition: Admitted As Inpatient
[2023-03-30] MEDS: Nitroglycerin 2 % Oint 1 GM Packet 0.5 INCH TRANSDERMA (21:59)
[2023-03-30 22:35] VITALS: BP 114/58; PULSE 71; RESP 16; TEMP 36.8; O2SAT 98
--- NOTE | 2023-03-30 22:40 | MHC.EDTECH ---
repeated trop drawn and sent to lab ,vitals sign taken pt said she feel much better now ,rn aware .
--- NOTE | 2023-03-30 22:55 | PC.NURSE ---
repeat troponin critical 660.3 - stat ekg obtained per MD orders. ptt drawn iv line placed and 5000units heparin administered per oct. pt resting comfortably on stretcher has no current complaints reports relief of pain/discomfit s/p nitroglycerin administration. pt on rn cardiac and call ivory within reach
[2023-03-30 23:13] LABS: Troponin-I High Sensitivity 660.3 ng/L (<3.5-17.0)
--- NOTE | 2023-03-30 23:13 | ECG_ITS ---
Test Reason : CHEST PAIN Blood Pressure : / mmHG Vent. Rate : 075 BPM Atrial Rate : 075 BPM P-R Int : 142 ms QRS Dur : 168 ms QT Int : 466 ms P-R-T Axes : 051 202 009 degrees QTc Int : 520 ms Atrial-sensed ventricular-paced rhythm Abnormal ECG When compared with ECG of 30-MAR-2023 19:30, Vent. rate has decreased BY 2 BPM Referred By: Kiel Davis Electronically Signed By:TAWANA JOYNER
[2023-03-30] MEDS: Heparin Sodium,Porcine 5,000 UNIT/ML VIAL 5000 UNIT IVPUSH (23:49)
[2023-03-31] VITALS (8 sets, daily range): BP systolic 95–121; BP diastolic 49–66; PULSE 68–85; RESP 16–20; TEMP 36.3–37.1; O2SAT 96–99; BMI 41.9
--- NOTE | 2023-03-31 | MHC.EDTECH ---
0000 ROUNDING DONE,VITALS SIGN TAKEN ,PT SAID SHE WAS HUNGRY ,PROVIDER JACKIE SAID PT COULD EAT ,PT HAD A TUNA FISH SANDWICH ,A PUDDING AND DRANK A ARIANNE MEÑO ,PT BELONGING LIST DONE ,PT IS COMFORTABLE AND IS HOOKED UP TO BAND PRESSER ,WILL CONTINUE TO MONITOR .
[2023-03-31 00:33] LABS: INTERNATIONAL NORM RATIO 0.9 (0.9-1.1); Prothrombin Time 11.2 SEC (11.1-13.3)
[2023-03-31 00:35] LABS: D Dimer High Sensitivity 331 NG/ML
[2023-03-31 00:36] LABS: Partial Thromboplastin Time 27.5 SEC (26.0-36.4)
[2023-03-31] MEDS: iohexoL 350 MG/ML 100 ML INFUS..BTL 65 ML IV (01:22)
[2023-03-31] MEDS: Heparin Sodium,Porcine/1/2NS 25,000 UNIT/250 ML IV.SOLN 10 UNIT IVCONT (01:45)
--- NOTE | 2023-03-31 03:04 | MHC.EDTECH ---
vitals sign taken ,pt awake and is reading .
[2023-03-31 03:12] LABS: B Type Natriuretic Peptide 938 pg/mL (<100)
--- NOTE | 2023-03-31 03:36 | PC.NURSE ---
MD MENA NOTIFIED OF PATIENTS INCREASED TROPONIN
--- NOTE | 2023-03-31 04:58 | PC.NURSE ---
heparin drip running pt tolerating well next ptt due at 07:45. pt ambulating with steady gait to and from bathroom with iv pole no issues. pt offers no current complaints
--- NOTE | 2023-03-31 06:09 | P.HPHOSP_ITS ---
History of Present Illness Date of Service: 03/31/23 Chief Complaint: Chest pain 49-year-old female past medical history of HTN, GERD, CIRO, LBBB, biventricular ICD, comes into the hospital with complaints of chest pain. Patient reports that her twin daughters were fighting all day, while she was shopping for school supplies and were causing her a lot of anxiety and anger. She started yelling at them constantly, Azeem had initially started developing midsternal chest pain radiating to the left shoulder, lasting about 15-30 minutes, pain has now resolved, patient also developed shortness of breath, difficulty catching her breath. She also has some nausea, no abdominal pain, diarrhea constipation, no urinary symptoms and no lower extremity edema On arrival to the ED patient hemodynamically stable no significant abnormal vitals Labs are significant for WBC count of 7.7, hemoglobin of 9.4 which is around her baseline, hematocrit 33.7, initial troponin of 660, increased to 3473, BNP of 938 CTA of the chest shows no pulmonary embolus, cardiomegaly, she also has borderline enlarging left axillary lymph nodes that are nonspecific EKG shows atrial sensed ventricular paced rhythm Patient was started on heparin drip after discussion with Cardiology by the ED physician and will be admitted for further management Review of Systems Review of Systems: Yes all other systems are reviewed and are negative [facility] Medical History Biventricular ICD (implantable cardioverter-defibrillator) in place GERD (gastroesophageal reflux disease) Hospital discharge follow-up HTN (hypertension) Iron deficiency anemia Migraines Mild recurrent major depression Moderate asthma Pacemaker Pneumonia Family History Father No problems noted. Mother No problems noted. Son No problems noted. Daughter No problems noted. Son No problems noted. Surgical History History of gastric bypass History of hip replacement History of hip replacement, total S/P cardiac cath Social History Housing: Apartment Alcohol intake: unknown Patient Tobacco Use Status: Never used Tobacco Smoked in Last 30 Days: No e-Cigarette/Vaping Use: Never Used Second Hand Smoke Exposure: No Use of substances other than those prescribed or required for medical reasons: No Advance Directives: No Advance Directives Information Provided: No Nutrition Risks: No Nutritional Risk Patient : No service: No Current occupational status: disabled Cognitive needs: No Hearing needs: No Vision needs: No Meds Allergies Allergy/AdvReac Type Severity Reaction Status Date / Time gabapentin Allergy Intermediate memory loss Verified 03/30/23 19:40 ibuprofen Allergy Intermediate abdominal Verified 03/30/23 19:40 pain celecoxib [Celebrex] Allergy Unknown Unknown Verified 03/30/23 19:40 Active Medications: Current Medications Acetaminophen (Acetaminophen 325 Mg Tablet) 650 mg PO Q6H PRN PRN Reason: Pain, Mild (Pain Scale 1-3) Docusate Sodium (Docusate Sodium 100 Mg Capsule) 100 mg PO DAILY PRN PRN Reason: Constipation Heparin Sodium (Porcine) (Heparin Sodium,Porcine 5,000 Unit/Ml Vial) 3,800 unit 40 unit/kg (3800 unit) IVPUSH PROTOCOL BOLUS PRN; Protocol PRN Reason: 40 unit/kg - Heparin Protocol Heparin Sodium (Porcine) (Heparin Sodium,Porcine 5,000 Unit/Ml Vial) 7,500 unit 80 unit/kg (7500 unit) IVPUSH PROTOCOL BOLUS PRN; Protocol PRN Reason: 80 unit/kg - Heparin Protocol Heparin Sodium/Sodium Chloride (Heparin Sodium,Porcine/1/2ns) 25,000 unit in 250 mls @ 0 mls/hr IVCONT .Q0M [facility]; Protocol Last Admin: 03/31/23 01:45 Dose: 10.63 units/kg/hr, 10 mls/hr Ondansetron HCl (Ondansetron Hcl 4 Mg/2 Ml Vial) 4 mg IVPUSH Q8H PRN PRN Reason: Nausea and Vomiting Sodium Chloride (0.9 % Sodium Chloride Flush 3 Ml Syringe) 3 ml IVFLUSH QSHIFT [facility] Physical Exam Vital Signs and Narrative: Vital Signs: Last Vital Signs Temp 98.2 F 03/31/23 06:06 Pulse 72 03/31/23 06:06 Resp 20 03/31/23 06:06 BP 95/58 L 03/31/23 06:06 Pulse Ox 98 03/31/23 06:06 O2 Del Method Room Air 03/31/23 06:06 BMI result Body Mass Index 41.9 Const: General: cooperative and no acute distress Orientation/cons ciousness: patient oriented x3 Eyes: General: appearance normal, both eyes and all related structures Resp: Effort & Inspection: normal respiratory effort Cardio: Rate: regular rate Rhythm: regular rhythm GI: Palpation (GI): Soft to palpation Auscultation: normal bowel sounds Skin: General skin exam: no rashes or lesions noted Neuro: General: patient oriented x3 Cognition (Neuro): normal cognition Extrem: General: Yes normal to inspection and Yes no pedal edema Results Labs 03/30/23 19:47 03/30/23 19:47 Labs: Laboratory Results - last 24 hr 03/30/23 03/30/23 03/30/23 19:47 19:47 23:29 MCV 69.1 L MCH 19.3 L MCHC 27.9 L RDW 18.1 H Plt Count 311 MPV 9.5 Immature Gran % (Auto) 0.3 Neut % (Auto) 54.4 Lymph % (Auto) 31.5 Dauphin % (Auto) 11.8 H Eos % (Auto) 1.6 Baso % (Auto) 0.4 Lymph # (Auto) 2.4 Dauphin # (Auto) 0.9 Eos # (Auto) 0.1 Baso # (Auto) 0.0 Abs Immat Gran (auto) 0.02 Absolute Neuts (auto) 4.2 Absolute Nucleated RBC 0.000 Nucleated RBC % (auto) 0.0 PT 11.2 INR 0.9 APTT 27.5 D-Dimer High Sensitivty 331 Anion Gap 14 Estim Creat Clear Calc 62.1 Estimated GFR 58 Random Glucose 105 Calcium 8.9 B-Natriuretic Peptide 03/30/23 03/31/23 23:29 02:43 MCV MCH MCHC RDW Plt Count MPV Immature Gran % (Auto) Neut % (Auto) Lymph % (Auto) Dauphin % (Auto) Eos % (Auto) Baso % (Auto) Lymph # (Auto) Dauphin # (Auto) Eos # (Auto) Baso # (Auto) Abs Immat Gran (auto) Absolute Neuts (auto) Absolute Nucleated RBC Nucleated RBC % (auto) PT INR APTT D-Dimer High Sensitivty Cancelled Anion Gap Estim Creat Clear Calc Estimated GFR Random Glucose Calcium B-Natriuretic Peptide 938 H Imaging Radiologist's Impressions: Impressions Chest CTA 03/31/23 01:10 IMPRESSION: 1. No pulmonary embolus identified. Of note, there is limited evaluation of the segmental vessels in the left lower lobe due to motion artifact. 2. Cardiomegaly. 3. Borderline enlarged left axillary lymph node, nonspecific. Correlation with recent or follow-up screening mammography is recommended. VTE: negative. Assessment and Plan (1) Non-ST elevated myocardial infarction (non-STEMI): Status: Acute (2) CHF exacerbation: Status: Acute Plan 57-year-old female past medical history of hypertension, biventricular ICD, status post catheterization in 2021 with clean vessels, comes into the hospital with complaints of chest pain # acute NSTEMI - EKG showing ventricularly paced rhythm - has a significant elevated troponin with typical chest pain - started on heparin drip, will continue - echocardiogram - cardiology consulted # elevated BNP/acute CHF exacerbation - has dyspnea - on baseline Lasix of 40 mg daily, reports compliance - given the significantly elevated BNP will start her on Lasix IV - strict I&O, daily weight, low-sodium diet - echocardiogram # hypertension - stable - continue antihypertensive # history of dilated cardiomyopathy - status post ICD - patient is status post catheterization in 2021 and according to the report no vessel disease - continue Lasix, Entresto, spironolactone DVT prophylaxis: Heparin GGT Given patient's need for heparin drip in the setting of acute NSTEMI patient require minimum 2 nights inpatient hospital stay for further management and monitoring Time Spent With Patient Time: Total time managing care of this patient today ____ minutes. Quality Stroke Does the patient have a stroke diagnosis?: No VTE Prior VTE?: No VTE Risk Level:: Medical - moderate - high VTE Device Contraindication: Treatment Not Indicated VTE Drug Contraindication: N/A - Med Ordered
--- NOTE | 2023-03-31 07:00 | CA_ITS ---
Transthoracic Echocardiogram Patient (Last, First, Middle): Montserrat Yates, Gender: Female Date of : 1965 Age: 57 Procedure Date: 03/31/2023 Procedure Type: Transthoracic Echocardiogram [place] [facility] [place]: 149.86 cm Weight: 93.9 kg BSA: 1.87 m2 Heart Rate: 85 bpm BP: 95 / 58 mmHg Cat Sitter: RODRI Referring MD: Galen Dorman MD Symptoms: NSTEMI Study Quality: Adequate/Contrast ECG Rhythm: Sinus Conclusions: - The left ventricular systolic function is severely decreased. The calculated ejection fraction is 16% by biplane method. - There is mild to moderate mitral valve regurgitation. Findings Procedure Information Contrast agent, definity, is being given per protocol without apparent complications. Left Ventricle Severely increased left ventricular cavity size. There is mildly increased left ventricular wall thickness. The left ventricular systolic function is severely decreased. The calculated ejection fraction is 16% by biplane method. There is severe global hypokinesis. Evidence suggests grade II (moderate) diastolic dysfunction. There is no evidence of a thrombus in the left ventricle. Right Ventricle Mildly increased right ventricular cavity size. There is normal right ventricular systolic function. Atria Both atria are normal in size. Aortic Valve The aortic valve structure and function is likely normal. There is no aortic valve stenosis. There is no aortic valve regurgitation. Mitral Valve There is mild anterior mitral leaflet thickening. The posterior mitral leaflet has restricted mobility. There is mild mitral annular calcification. There is mild to moderate mitral valve regurgitation. There is trace mitral valve stenosis. Pulmonic Valve The pulmonic valve is likely normal. Tricuspid Valve There is trace tricuspid valve regurgitation. There is no evidence of pulmonary hypertension. Great Vessels The asc aorta is normal in size. Venous The inferior vena cava is normal in size and collapses greater than 50% with inspiration. Pericardium/Pleural There is a trivial pericardial effusion. Prior Study Comparison No significant change compared to prior study dated: 12/23/2022. Measurements 2D Linear Measurements IVSd: 1.10 0.6-0.9/0.6-1.0 cm LVIDd: 7.10 3.9-5.3/4.2-5.9 cm LVIDd Index: 3.80 2.4-3.2/2.2-3.1 cm/m2 LVIDs: 5.70 2.0-3.6 cm LVPWd: 1.10 0.7-1.1 cm LA Diam: 4.20 2.7-3.8/3.0-4.0 cm LAIDs Index: 2.25 1.5-2.3 cm/m2 LV Mass: 464.30 67-162/88-224 g LV Mass Index: 248.29 43-95/49-115 g/m2 LVOT Diam: 2.00 3.0+(-)1.3 cm 2D Systolic Function EF 4C: 17.90 >55% EF 2C: 15.00 >55% EF BiP: 16.20 >55% Mitral Valve MV Pk E: 1.37 MV PK A: 1.27 MV Decel Time: 161.00 E/A: 1.10 E'Lateral: 5.66 E'Medial: 4.57 E/E' Med: 30.00 E/E' Lat: 24.20 PHT: 47.00 MVA PHT: 4.68 Decel Montgomery: 8.50 MR Vol - PW Dopp: 19.11 MR VTI: 1.47 MR ERO: 13.00 MR Alias Edgardo: 0.38 MR RAD: 0.50 Aortic Valve AoV Pk Edgardo: 1.31 AoV Mn Edgardo: 0.95 AoV VTI: 0.23 AoV Pk Grad: 7.00 Aov Mn Grad: 4.00 MADELINE Cont.VTI: 2.27 LVOT LVOT Pk Edgardo: 0.98 LVOT Mn Edgardo: 0.69 LVOT VTI: 0.17 LVOT Pk Grad: 4.00 LVOT Mn Grad: 2.00 LVOT Diam: 2.00 LVOT Area: 3.14 Diastolic Function MV Pk E: 1.37 MV Pk A: 1.27 E/A: 1.10 E'Medial: 4.57 E/E' Med: 30.00 E' Laterial: 5.66 E/E' Lat: 24.20 Right Ventricle TAPSE (mm): 20.30 TVS' Edgardo: 13.60 Tricuspid Valve TR Pk Edgardo: 2.25 TR Pk Grad: 20.00 RA Press: 3.00 RVSP: 23.00 Great Vessels Aorta Sinus of Valsalva: 2.80 2.0-3.5 cm Ao Asc: 2.90 2.1-3.4 cm Pulmonary Valve PV Pk Edgardo: 1.05 Peak PV Grad: 4.00 Updated in Other Vendor System with Status of Final Luis Erickson MD electronically signed on 03/31/2023 10:55:23 AM with status of Final
[2023-03-31 07:18] LABS: Glucose, Whole Blood 128 mg/dL (60-115)
--- NOTE | 2023-03-31 08:04 | PHA.MEDREC ---
Pharmacy Consult ? Medication Reconciliation Pharmacy has completed the medication reconciliation. Spoke to patient to confirm meds.
[2023-03-31 09:00] LABS: MANUAL DIFF FLAG NO
[2023-03-31 09:09] LABS: Basophils Percent Auto 0.6 % (0-2); Eosinophils Absolute Auto 0.1 X10*3/uL (0.0-0.4); Eosinophils Percent Auto 1.6 % (0-4); Hematocrit 33.9 % (37.0-47.0); Hemoglobin 9.3 g/dl (12.0-16.0); Imm Gran Abs Auto 0.01 X10*3/uL (0.00-0.03); Imm Gran Pct Auto 0.1 % (0.0-0.4); Lymphocytes Absolute Auto 1.8 X10*3/uL (1.2-4.9); Mean Corpuscular HGB Conc 27.4 g/dl (31.0-35.0); Mean Corpuscular Hemoglobin 19.1 pg (27.0-33.0); Mean Corpuscular Volume 69.5 fL (80.0-98.0); Mean Platelet Volume 9.6 fL (9.4-12.3); Monocytes Absolute Auto 0.8 X10*3/uL (0.1-1.2); Monocytes Percent Auto 11.3 % (2-11); Neutrophils Absolute Auto 4.2 x10*3/uL (2.0-8.3); Neutrophils Percent Auto 60.4 % (45-73); Platelet Count 307 X10*3/uL (160-400); Red Blood Count 4.88 X10*6/uL (4.20-5.50); Red Cell Distribution Width 18.4 % (11.0-16.0); White Blood Count 6.9 X10*3/uL (4.8-10.8)
--- NOTE | 2023-03-31 09:29 | P.CONCA_ITS ---
History of Present Illness History of Present Illness Date of Service: 03/31/23 Chief complaint: NSTEMI Narrative: This is a cardiology consultation regarding elevated troponins. She has a history of nonischemic cardiomyopathy, left bundle-branch block and history of biventricular ICD as well. She has had cardiac catheterization in the past that showed essentially normal coronary arteries. Yesterday, apparently had daughters were fighting all day and she was shopping for school supplies and then there was lot of anxiety apparently. Subsequently, she started developing chest pain. To me she states that was bilateral chest pain but in the H&P described as midsternal chest pain radiating to left shoulder. Last about half an hour or so. Then some shortness of breath and difficulty catching her breath. Some nausea. Subsequently, seen in the emergency room and admitted for further care. Today, she states she feels fine. Troponins have been checked and have been rising a lot. She is on IV heparin drip. Review of Systems Review of Systems: Yes all other systems are reviewed and are negative Constitutional: Constitutional: Reports as per HPI and Reports no additional constitutional complaints Eyes: Eyes: Reports as per HPI and Denies no additional eye complaints ENT: Denies system reviewed and no additional complaints, except as documented and Reports as per HPI Cardiovascular: Cardiovascular: Reports as per HPI, Reports no additional cardiovascular complaints, Denies acrocyanosis, Denies cool extremities, Reports chest pain, Denies leg edema, Denies lightheadedness, Denies palpitations and Denies dyspnea Respiratory: Respiratory: Reports as per HPI, Denies no additional respiratory complaints and Denies dyspnea Gastrointestinal: Gastrointestinal: Reports as per HPI and Denies no additional gastrointestinal complaints Genitourinary: Genitourinary: Reports as per HPI Musculoskeletal: Musculoskeletal: Reports no additional musculoskeletal complaints and Reports as per HPI Integumentary/Breasts: Skin/Breast: Reports system reviewed and no additional complaints, except as docu Neurologic: Reports system reviewed and no additional complaints, except as documented and Reports as per HPI Psychiatric: Psychiatric: Reports no additional psychiatric complaints and Reports as per HPI Endocrine: Endocrine: Reports no additional endocrine complaints, Reports as per HPI and Denies palpitations Hematologic/Lymphatic: Hematologic/Lymphatic: Reports no additional hematologic/lymphatic complaints and Reports as per HPI Allergic/Immunologic: Allergic/Immunologic: Reports no additional allergic/immunologic complaints and Reports as per HPI [facility] Past Medical History Medical History Biventricular ICD (implantable cardioverter-defibrillator) in place GERD (gastroesophageal reflux disease) Hospital discharge follow-up HTN (hypertension) Iron deficiency anemia Migraines Mild recurrent major depression Moderate asthma Pacemaker Pneumonia Family History Family History Father No problems noted. Mother No problems noted. Son No problems noted. Daughter No problems noted. Son No problems noted. Surgical History Surgical History History of gastric bypass History of hip replacement History of hip replacement, total S/P cardiac cath Social History Social History Housing: Apartment Alcohol intake: unknown Patient Tobacco Use Status: Never used Tobacco Smoked in Last 30 Days: No e-Cigarette/Vaping Use: Never Used Second Hand Smoke Exposure: No Use of substances other than those prescribed or required for medical reasons: No Advance Directives: No Advance Directives Information Provided: No Nutrition Risks: No Nutritional Risk Patient : No service: No Current occupational status: disabled Cognitive needs: No Hearing needs: No Vision needs: No Meds Allergies Allergy/AdvReac Type Severity Reaction Status Date / Time gabapentin Allergy Intermediate memory loss Verified 03/30/23 19:40 ibuprofen Allergy Intermediate abdominal Verified 03/30/23 19:40 pain celecoxib [Celebrex] Allergy Unknown Unknown Verified 03/30/23 19:40 Active Medications: Current Medications Acetaminophen (Acetaminophen 325 Mg Tablet) 650 mg PO Q6H PRN PRN Reason: Pain, Mild (Pain Scale 1-3) Dextrose (Dextrose 50 % 25 Gm/50 Ml Syringe) 25 gm IVPUSH Q15M PRN; Protocol PRN Reason: per Hypoglycemia Standing Ord. Docusate Sodium (Docusate Sodium 100 Mg Capsule) 100 mg PO DAILY PRN PRN Reason: Constipation Furosemide (Furosemide 40 Mg/4 Ml Vial) 40 mg IVPUSH DAILY DANG; Protocol Glucose (Glucose Gel 15 Gm Gel..Gram.) 15 gm PO Q15M PRN; Protocol PRN Reason: per Hypoglycemia Standing Ord. Heparin Sodium (Porcine) (Heparin Sodium,Porcine 5,000 Unit/Ml Vial) 3,800 unit 40 unit/kg (3800 unit) IVPUSH PROTOCOL BOLUS PRN; Protocol PRN Reason: 40 unit/kg - Heparin Protocol Heparin Sodium (Porcine) (Heparin Sodium,Porcine 5,000 Unit/Ml Vial) 7,500 unit 80 unit/kg (7500 unit) IVPUSH PROTOCOL BOLUS PRN; Protocol PRN Reason: 80 unit/kg - Heparin Protocol Heparin Sodium/Sodium Chloride (Heparin Sodium,Porcine/1/2ns) 25,000 unit in 250 mls @ 0 mls/hr IVCONT .Q0M DANG; Protocol Last Admin: 03/31/23 01:45 Dose: 10.63 units/kg/hr, 10 mls/hr Insulin Human Lispro (Insulin Lispro 100 Unit/Ml 3 Ml Vial) 0 unit SUBCUT QIDACHS [facility]; Protocol Omeprazole (Omeprazole 40 Mg Capsule.Dr) 40 mg PO BID@0630,1630 [facility] Ondansetron HCl (Ondansetron Hcl 4 Mg/2 Ml Vial) 4 mg IVPUSH Q8H PRN PRN Reason: Nausea and Vomiting Sodium Chloride (0.9 % Sodium Chloride Flush 3 Ml Syringe) 3 ml IVFLUSH QSHIFT DANG Tramadol HCl (Tramadol Hcl 50 Mg Tablet) 50 mg PO Q8H [facility] Home Medications Medication Instructions Recorded Confirmed Last Taken Type dapagliflozin propanediol 10 mg 10 mg PO DAILY 03/31/23 03/31/23 03/30/23 History tablet (Farxiga) furosemide 40 mg tablet (Lasix) 40 mg PO BID@0900,1500 03/31/23 03/31/23 03/30/23 History omeprazole 40 mg capsule,delayed 40 mg PO BID 03/31/23 03/31/23 03/30/23 History release sacubitril 24 mg-valsartan 26 mg 1 tab PO BID 03/31/23 03/31/23 03/30/23 History tablet (Entresto) sumatriptan succinate 50 mg tablet 50 mg PO Q2H PRN Migraine Headache 03/31/23 03/31/23 Unknown History Physical Exam Vital Signs: Vital Signs: Last Vital Signs Temp 97.6 F 03/31/23 08:00 Pulse 83 03/31/23 08:00 Resp 20 03/31/23 08:00 BP 120/61 03/31/23 08:00 Pulse Ox 96 03/31/23 08:00 O2 Del Method Room Air 03/31/23 08:00 BMI result Body Mass Index 41.9 Const: General: comfortable and no acute distress Orientation/consciousness: patient oriented x3 HEENT: Other: Unremarkable Head: Yes normal to inspection Neck: Neck: Yes normal visual inspection Chest: Chest palpation & inspection: normal inspection of the chest Resp: Auscultation: clear to auscultation bilaterally Cardio: Palpation: normal PMI Heart sounds: S1 normal heart sound present, S2 normal heart sound present, no gallops, no murmurs and no rubs GI: Palpation (GI): Soft to palpation Back/Spine/Pelvis: Other: unremarkable Skin: General skin exam: no rashes or lesions noted Neuro: General: patient oriented x3 Extrem: General: Yes normal to inspection Psych: Mental Status: mental status grossly normal Objective Labs and Meds 03/31/23 08:55 03/30/23 19:47 Lab results: Laboratory Results - last 24 hr 03/30/23 03/30/23 03/30/23 19:47 19:47 19:47 WBC 7.7 RBC 4.88 Hgb 9.4 L Hct 33.7 L MCV 69.1 L MCH 19.3 L MCHC 27.9 L RDW 18.1 H Plt Count 311 MPV 9.5 Immature Gran % (Auto) 0.3 Neut % (Auto) 54.4 Lymph % (Auto) 31.5 [place] % (Auto) 11.8 H Eos % (Auto) 1.6 Baso % (Auto) 0.4 Lymph # (Auto) 2.4 [place] # (Auto) 0.9 Eos # (Auto) 0.1 Baso # (Auto) 0.0 Abs Immat Gran (auto) 0.02 Absolute Neuts (auto) 4.2 Absolute Nucleated RBC 0.000 Nucleated RBC % (auto) 0.0 PT INR APTT D-Dimer High Sensitivty Sodium 137 Potassium 4.2 Chloride 106 Carbon Dioxide 21 L Anion Gap 14 BUN 17 H Creatinine 0.99 Estim Creat Clear Calc 62.1 Estimated GFR 58 POC Glucose Random Glucose 105 Calcium 8.9 Troponin I High Sens 19.6 H B-Natriuretic Peptide 03/30/23 03/30/23 03/30/23 22:38 23:29 23:29 WBC RBC Hgb Hct MCV MCH MCHC RDW Plt Count MPV Immature Gran % (Auto) Neut % (Auto) Lymph % (Auto) [place] % (Auto) Eos % (Auto) Baso % (Auto) Lymph # (Auto) [place] # (Auto) Eos # (Auto) Baso # (Auto) Abs Immat Gran (auto) Absolute Neuts (auto) Absolute Nucleated RBC Nucleated RBC % (auto) PT 11.2 INR 0.9 APTT 27.5 D-Dimer High Sensitivty 331 Cancelled Sodium Potassium Chloride Carbon Dioxide Anion Gap BUN Creatinine Estim Creat Clear Calc Estimated GFR POC Glucose Random Glucose Calcium Troponin I High Sens 660.3 H* D B-Natriuretic Peptide 03/31/23 03/31/23 03/31/23 02:43 02:43 07:14 WBC RBC Hgb Hct MCV MCH MCHC RDW Plt Count MPV Immature Gran % (Auto) Neut % (Auto) Lymph % (Auto) [place] % (Auto) Eos % (Auto) Baso % (Auto) Lymph # (Auto) [place] # (Auto) Eos # (Auto) Baso # (Auto) Abs Immat Gran (auto) Absolute Neuts (auto) Absolute Nucleated RBC Nucleated RBC % (auto) PT INR APTT D-Dimer High Sensitivty Sodium Potassium Chloride Carbon Dioxide Anion Gap BUN Creatinine Estim Creat Clear Calc Estimated GFR POC Glucose 128 H Random Glucose Calcium Troponin I High Sens 3473.0 H* D B-Natriuretic Peptide 938 H 03/31/23 08:55 WBC 6.9 RBC 4.88 Hgb 9.3 L Hct 33.9 L MCV 69.5 L MCH 19.1 L MCHC 27.4 L RDW 18.4 H Plt Count 307 MPV 9.6 Immature Gran % (Auto) 0.1 Neut % (Auto) 60.4 Lymph % (Auto) 26.0 [place] % (Auto) 11.3 H Eos % (Auto) 1.6 Baso % (Auto) 0.6 Lymph # (Auto) 1.8 [place] # (Auto) 0.8 Eos # (Auto) 0.1 Baso # (Auto) 0.0 Abs Immat Gran (auto) 0.01 Absolute Neuts (auto) 4.2 Absolute Nucleated RBC 0.000 Nucleated RBC % (auto) 0.0 PT INR APTT D-Dimer High Sensitivty Sodium Potassium Chloride Carbon Dioxide Anion Gap BUN Creatinine Estim Creat Clear Calc Estimated GFR POC Glucose Random Glucose Calcium Troponin I High Sens B-Natriuretic Peptide ECG Interpretation: EKG with atrial sensed, biventricular paced rhythm at 75/Min. Imaging Radiologist's impression: Impressions Chest CTA 03/31/23 01:10 IMPRESSION: 1. No pulmonary embolus identified. Of note, there is limited evaluation of the segmental vessels in the left lower lobe due to motion artifact. 2. Cardiomegaly. 3. Borderline enlarged left axillary lymph node, nonspecific. Correlation with recent or follow-up screening mammography is recommended. VTE: negative. Assessment and Plan (1) Non-ST elevated myocardial infarction (non-STEMI): Status: Acute (2) Cardiomyopathy: Status: Acute (3) LBBB (left bundle branch block): Status: Acute (4) Biventricular ICD (implantable cardioverter-defibrillator) in place: Status: Acute Plan High sensitivity troponins are 19, 660 and 3473. Hence that has been significant rise but no clear explanation. Her cardiac catheterization last year did not show any significant coronary disease. She is known to have very low LVEF in the 10-15% range. Possibilities are coronary dissection, spasm, stress-induced cardiomyopathy, coronary embolus. Much less likely that she developed new plaque since last year. She underwent coronary CTA, less than optimal quality but no obvious thromboembolic type situation. We will do an echocardiogram to look for LV thrombus. If this is also unremarkable, then potentially transfer to [facility] for repeat diagnostic catheterization. Discussed with Dr. Guardado and Dr. Crawford. Time Spent With Patient Time: Total time managing care of this patient today ____ minutes. Procedures Date of Service Date of Service: 03/31/23
[2023-03-31 09:30] LABS: Alanine Aminotransferase 13 U/L (0-31); Albumin Level 3.6 g/dL (3.5-5.0); Alkaline Phosphatase 164 U/L (39-117); Anion Gap 10 (12-20); Aspartate Amino Transferase 46 U/L (5-31); Bilirubin Total 0.6 mg/dL (0.0-1.0); Blood Urea Nitrogen 16 mg/dL (9-16); Calcium 9.1 mg/dL (8.4-10.2); Carbon Dioxide 23 mmol/L (22-29); Chloride 110 mmol/L (96-108); Creatinine Clr Calc Pharmacy 77.8; Estimated Glomerular Filt Rate > 60; Glucose Random 97 mg/dL (60-115); Potassium 4.2 mmol/L (3.3-5.1); Sodium 139 mmol/L (135-145); Total Protein 6.6 g/dL (6.5-8.0)
[2023-03-31 09:52] LABS: PTT Heparin Drip 118.5 SEC (53-77.9)
[2023-03-31] MEDS: traMADoL HCL 50 MG TABLET PO ×2 (10:42→17:37)
[2023-03-31] MEDS: Furosemide 40 MG/4 ML VIAL IVPUSH (10:43)
[2023-03-31] MEDS: 0.9 % Sodium Chloride Flush 3 ML SYRINGE IVFLUSH ×2 (10:43→17:37)
--- NOTE | 2023-03-31 11:00 | MHC.CM.PN ---
Pt admitted with NSTEMI. Pt lives at home with her and two children, and is independent/self-care. D/C plan to return home self-care when medically cleared. Pts to transport home. No HCP at this time, offered assistance to complete, will think about it at this time. PCP: Char Vann vax: x 2 pfizer
[2023-03-31 11:57] LABS: Glucose, Whole Blood 97 mg/dL (60-115)
--- NOTE | 2023-03-31 12:07 | PM.DS ---
DS: Providers Provider Date of Service: 03/31/23 Date of admission: 03/31/23 02:23 Primary care physician: Char Molina MD Consults: 03/31/23 02:25 Consult to Cardiology Routine Consulting Provider: [facility] Reason for consultation: NSETI Has provider been notified: Yes DS: Diagnosis Discharge Diagnosis (1) Non-ST elevated myocardial infarction (non-STEMI): Status: Acute (2) Cardiomyopathy: Status: Acute (3) CHF exacerbation: Status: Acute DS: Summary Hospital Course Hospital Course: Admission note HPI 49-year-old female past medical history of HTN, GERD, CIRO, LBBB, biventricular ICD, comes into the hospital with complaints of chest pain.? Patient reports that her twin daughters were fighting all day, while she was shopping for school supplies and were causing her a lot of anxiety and anger.? She started yelling at them constantly, Azeem had initially started developing midsternal chest pain radiating to the left shoulder, lasting about 15-30 minutes, pain has now resolved, patient also developed shortness of breath, difficulty catching her breath.? She also has some nausea, no abdominal pain, diarrhea constipation, no urinary symptoms and no lower extremity edema On arrival to the ED patient hemodynamically stable no significant abnormal vitals Labs are significant for WBC count of 7.7, hemoglobin of 9.4 which is around her baseline, hematocrit 33.7, initial troponin of 660, increased to 3473, BNP of 938 CTA of the chest shows no pulmonary embolus, cardiomegaly, she also has borderline enlarging left axillary lymph nodes that are nonspecific EKG shows atrial sensed ventricular paced rhythm Patient was started on heparin drip after discussion with Cardiology by the ED physician and will be admitted for further management Hospital course Admitted for evidence of acute NSTEMI with elevated troponin of 660, increased to 3473 with reported chest pain. EKG showing ventricularly paced rhythm. Evaluated by cardiology as she was started on heparin drip as ECHO showed EF of 16%. also found to have elevated BNP with mild acute CHF exacerbation complaining of dyspnea. - on baseline Lasix of 40 mg daily, changed to IV with strict I&O, daily weight, low-sodium diet. To be transferred to [facility] for further evaluation and intervention. Time Spent with Patient Time attestation: Total time managing care of this patient today ____ minutes. Discharge coordination time: Greater than 30 minutes Quality: Safe Use of Opioids Does Pt have an Active Cancer Diagnosis on the Problem List?: No Quality: Stroke Does the patient have a stroke diagnosis?: No Physical Exam Vital Signs: Vital Signs: Last Vital Signs Temp 97.4 F 03/31/23 11:33 Pulse 84 03/31/23 11:33 Resp 20 03/31/23 11:33 BP 121/58 L 03/31/23 11:33 Pulse Ox 98 03/31/23 11:33 O2 Del Method Room Air 03/31/23 11:33 BMI result Body Mass Index 41.9 Const: Other: Constitutional : Awake, interactive, not in distress Neck : Normal inspection, Supple Cardiovascular : RRR, no JVP, no lower extremity edema Respiratory : good bilateral air entry, no crackles, wheezes or rhonchi Gastrointestinal: soft, lax, Normal bowel sounds, Non tender Skin : Warm, Dry Neurological : Alert & oriented x3, No focal deficit DS: Data Data Completed and Pending Labs on day of discharge: Laboratory Results - last 24 hr 03/30/23 03/30/23 03/30/23 19:47 19:47 19:47 WBC 7.7 RBC 4.88 Hgb 9.4 L Hct 33.7 L MCV 69.1 L MCH 19.3 L MCHC 27.9 L RDW 18.1 H Plt Count 311 MPV 9.5 Immature Gran % (Auto) 0.3 Neut % (Auto) 54.4 Lymph % (Auto) 31.5 [place] % (Auto) 11.8 H Eos % (Auto) 1.6 Baso % (Auto) 0.4 Lymph # (Auto) 2.4 [place] # (Auto) 0.9 Eos # (Auto) 0.1 Baso # (Auto) 0.0 Abs Immat Gran (auto) 0.02 Absolute Neuts (auto) 4.2 Absolute Nucleated RBC 0.000 Nucleated RBC % (auto) 0.0 PT INR APTT aPTT Heparin Protocol D-Dimer High Sensitivty Sodium 137 Potassium 4.2 Chloride 106 Carbon Dioxide 21 L Anion Gap 14 BUN 17 H Creatinine 0.99 Estim Creat Clear Calc 62.1 Estimated GFR 58 POC Glucose Random Glucose 105 Calcium 8.9 Total Bilirubin AST ALT Alkaline Phosphatase Troponin I High Sens 19.6 H B-Natriuretic Peptide Total Protein Albumin 08/22/23 08/22/23 08/22/23 22:38 23:29 23:29 WBC RBC Hgb Hct MCV MCH MCHC RDW Plt Count MPV Immature Gran % (Auto) Neut % (Auto) Lymph % (Auto) [place] % (Auto) Eos % (Auto) Baso % (Auto) Lymph # (Auto) [place] # (Auto) Eos # (Auto) Baso # (Auto) Abs Immat Gran (auto) Absolute Neuts (auto) Absolute Nucleated RBC Nucleated RBC % (auto) PT 11.2 INR 0.9 APTT 27.5 aPTT Heparin Protocol D-Dimer High Sensitivty 331 Cancelled Sodium Potassium Chloride Carbon Dioxide Anion Gap BUN Creatinine Estim Creat Clear Calc Estimated GFR POC Glucose Random Glucose Calcium Total Bilirubin AST ALT Alkaline Phosphatase Troponin I High Sens 660.3 H* D B-Natriuretic Peptide Total Protein Albumin 03/31/23 03/31/23 03/31/23 02:43 02:43 07:14 WBC RBC Hgb Hct MCV MCH MCHC RDW Plt Count MPV Immature Gran % (Auto) Neut % (Auto) Lymph % (Auto) [place] % (Auto) Eos % (Auto) Baso % (Auto) Lymph # (Auto) [place] # (Auto) Eos # (Auto) Baso # (Auto) Abs Immat Gran (auto) Absolute Neuts (auto) Absolute Nucleated RBC Nucleated RBC % (auto) PT INR APTT aPTT Heparin Protocol D-Dimer High Sensitivty Sodium Potassium Chloride Carbon Dioxide Anion Gap BUN Creatinine Estim Creat Clear Calc Estimated GFR POC Glucose 128 H Random Glucose Calcium Total Bilirubin AST ALT Alkaline Phosphatase Troponin I High Sens 3473.0 H* D B-Natriuretic Peptide 938 H Total Protein Albumin 03/31/23 03/31/23 03/31/23 08:55 08:55 08:55 WBC 6.9 RBC 4.88 Hgb 9.3 L Hct 33.9 L MCV 69.5 L MCH 19.1 L MCHC 27.4 L RDW 18.4 H Plt Count 307 MPV 9.6 Immature Gran % (Auto) 0.1 Neut % (Auto) 60.4 Lymph % (Auto) 26.0 [place] % (Auto) 11.3 H Eos % (Auto) 1.6 Baso % (Auto) 0.6 Lymph # (Auto) 1.8 [place] # (Auto) 0.8 Eos # (Auto) 0.1 Baso # (Auto) 0.0 Abs Immat Gran (auto) 0.01 Absolute Neuts (auto) 4.2 Absolute Nucleated RBC 0.000 Nucleated RBC % (auto) 0.0 PT INR APTT aPTT Heparin Protocol 118.5 H* D-Dimer High Sensitivty Sodium 139 Potassium 4.2 Chloride 110 H Carbon Dioxide 23 Anion Gap 10 L BUN 16 Creatinine 0.79 Estim Creat Clear Calc 77.8 Estimated GFR > 60 POC Glucose Random Glucose 97 Calcium 9.1 Total Bilirubin 0.6 AST 46 H ALT 13 Alkaline Phosphatase 164 H Troponin I High Sens B-Natriuretic Peptide Total Protein 6.6 Albumin 3.6 03/31/23 03/31/23 10:27 11:31 WBC RBC Hgb Hct MCV MCH MCHC RDW Plt Count MPV Immature Gran % (Auto) Neut % (Auto) Lymph % (Auto) [place] % (Auto) Eos % (Auto) Baso % (Auto) Lymph # (Auto) [place] # (Auto) Eos # (Auto) Baso # (Auto) Abs Immat Gran (auto) Absolute Neuts (auto) Absolute Nucleated RBC Nucleated RBC % (auto) PT INR APTT aPTT Heparin Protocol 90.0 H D D-Dimer High Sensitivty Sodium Potassium Chloride Carbon Dioxide Anion Gap BUN Creatinine Estim Creat Clear Calc Estimated GFR POC Glucose 97 Random Glucose Calcium Total Bilirubin AST ALT Alkaline Phosphatase Troponin I High Sens B-Natriuretic Peptide Total Protein Albumin Imaging Chest x-ray: Radiologist's impression: ITS Impressions Chest CTA 03/31/23 01:10 IMPRESSION: 1. No pulmonary embolus identified. Of note, there is limited evaluation of the segmental vessels in the left lower lobe due to motion artifact. 2. Cardiomegaly. 3. Borderline enlarged left axillary lymph node, nonspecific. Correlation with recent or follow-up screening mammography is recommended. VTE: negative. Discharge Plan Discharge Anticipated Discharge Date/Time: 03/31/23 12:01 Patient Disposition: Xfer Acute Care Hospital Discharge Diagnosis: NSTEMI Referrals: Char Jacobo MD [Primary Care Provider] - 1 Week Discharge Medications: Continued spironolactone 25 mg tablet 25 mg PO DAILY Qty: 90 3RF tramadol 50 mg tablet 50 mg PO Q8H 30 Days Qty: 90 0RF Hold Instructions: Doctor's Order Farxiga 10 mg tablet 10 mg PO DAILY Entresto 24-26 mg tablet 1 tab PO BID sumatriptan succinate 50 mg tablet 50 mg PO Q2H PRN (Reason: Migraine Headache) Rx Instructions: NO MORE THAN 2 PER 24 HRS furosemide [Lasix] 40 mg tablet 40 mg PO BID@0900,1500 omeprazole 40 mg capsule,delayed release(DR/EC) 40 mg PO BID (DME) blood pressure monitor Kit See Rx Instructions .ROUTE .MEDSUPPLY Qty: 1 0RF Rx Instructions: As directed Discharge Orders: Discharge Order (Routine); Ordered 03/31/23 Ordered By: Janae Crawford Diet: Advance to usual diet Activity on Discharge: As tolerated Stand Alone Forms: Patient Portal Discharge page Care Plan Goals: Read below Health Concerns: Read below Plan of Treatment: Read below Assessment: Transfer to [facility] for further work up and possible angiogram
[2023-03-31] MEDS: Aspirin Enteric Coated 81 MG TABLET.DR PO (12:18)
[2023-03-31 12:52] LABS: COVID-19 Test Negative (Negative); IDNOW Serial# BCCEAD1C
--- NOTE | 2023-03-31 13:54 | MHC.CM.PN ---
Pt will medically transfer to [facility] for higher level of care.
[2023-03-31] MEDS: Omeprazole 40 MG CAPSULE.DR PO (17:37)
[2023-03-31 17:50] LABS: PTT Heparin Drip 46.5 SEC (53-77.9)
[2023-03-31] MEDS: Heparin Sodium,Porcine 5,000 UNIT/ML VIAL 3800 UNIT IVPUSH (18:13)
== END 2023-03-31 18:56 | disposition short-term general hospital (02) | DRG 190 ==
LOC: HO.ED 21:15 → HO.EDOVER 03-31 02:28 → HO.IMC 03-31 07:25
PROVIDERS: Admitting Provider Internal Medicine; Emergency Provider Internal Medicine; PCP Internal Medicine; Visit Provider Student in an Organized Health Care Education/Training Program
DX: I21.4 Non-ST elevation (NSTEMI) myocardial infarction (principal); I42.0 Dilated cardiomyopathy; F33.0 Major depressive disorder, recurrent, mild; I44.7 Left bundle-branch block, unspecified; G47.33 Obstructive sleep apnea (adult) (pediatric); I11.0 Hypertensive heart disease with heart failure; I50.9 Heart failure, unspecified; Z20.822 Contact with and (suspected) exposure to COVID-19; Z95.810 Presence of automatic (implantable) cardiac defibrillator; Z98.84 Bariatric surgery status; Z79.899 Other long term (current) drug therapy
CPT/HCPCS: 36415; 71275; 80048; 80053; 82947; 83880; 84484; 85025; 85379; 85610; 85730; 87635; 93005; 93306; 99285; J1643; J1940; Q9957; Q9967

== ENCOUNTER → 2023-03-31 02:23 | Outpatient (BNV) | payer OTHER, SELFPAY | PROVIDERS: Admitting Provider Internal Medicine; Emergency Provider Internal Medicine; PCP Internal Medicine; Visit Provider Internal Medicine | DX: I21.4 Non-ST elevation (NSTEMI) myocardial infarction (principal); I42.9 Cardiomyopathy, unspecified; I50.9 Heart failure, unspecified | CPT/HCPCS: 99235; 99499 ==

== ENCOUNTER → 2023-03-31 02:23 | Outpatient (BNV) | payer OTHER, SELFPAY | PROVIDERS: Admitting Provider Internal Medicine; Emergency Provider Internal Medicine; PCP Internal Medicine; Visit Provider Internal Medicine | DX: I21.4 Non-ST elevation (NSTEMI) myocardial infarction (principal); I42.9 Cardiomyopathy, unspecified; I44.7 Left bundle-branch block, unspecified; Z95.810 Presence of automatic (implantable) cardiac defibrillator; I34.0 Nonrheumatic mitral (valve) insufficiency; I34.81 Nonrheumatic mitral (valve) annulus calcification | CPT/HCPCS: 93306; 99222 ==

== ENCOUNTER → 2023-04-01 23:59 | Outpatient (BNV) | payer OTHER, SELFPAY | PROVIDERS: PCP Internal Medicine; Visit Provider Internal Medicine Cardiovascular Disease | DX: I21.4 Non-ST elevation (NSTEMI) myocardial infarction (principal); I42.9 Cardiomyopathy, unspecified | CPT/HCPCS: 93458; 99152 ==

== ENCOUNTER 2023-04-07 14:51 | Outpatient (AMB) | payer OTHER, SELFPAY ==
--- NOTE | 2023-04-07 14:52 | MHC.PC.OV ---
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 Accompanied by: Self / Same As Patient Allergies gabapentin Allergy (Intermediate, Verified 04/07/23 15:16) memory loss ibuprofen Allergy (Intermediate, Verified 04/07/23 15:16) abdominal pain celecoxib [Celebrex] Allergy (Unknown, Verified 04/07/23 15:16) Unknown Medication List - Last Reconciled 04/07/23 by Char Molina MD blood pressure monitor As directed dapagliflozin propanediol (Farxiga) 10 mg PO DAILY furosemide (Lasix) 40 mg PO BID@0900,1500 omeprazole 40 mg PO BID sacubitril-valsartan 24-26 mg (Entresto) 1 tab PO BID spironolactone 25 mg PO DAILY sumatriptan succinate 50 mg PO Q2H PRN tramadol 50 mg PO Q8H 30 days Tobacco use date assessed: 04/07/23 Dental Screening Dental Screen Date: 04/07/23 Did you have a dental visit in the last 12 months?: No Did you have a dental problem in the last 6 months where you did not have access to dental care?: No Was dental information given to patient?: Patient has dentist HPI HPI Comments History of Present Illness Details This is a 57-year-old female with morbid obesity, mild recurrent major depression, chronic systolic congestive heart failure and non STEMI dated March 2023 that comes for her physical exam. She is morbidly obese with a BMI of 40.4 and was advised to diet and exercise. I will start her on venlafaxine for her depression. She had a recent episode this month of congestive heart failure exacerbation secondary to non STEMI. Cardiac catheterization was done and did not require stent. Has biventricular defibrillator placed. Last echocardiogram showed ejection fraction of 16 %. Has not gain 5 lb in a week and was advised to weight daily. Last colonoscopy was years ago and new was negative. Prefers to do Cologuard. Last mammogram was over a year ago. Last Pap smear was over 5 years ago. Complains of occasional blurry vision. [facility] Medical History (Updated 04/07/23 @ 16:14 by Char Molina MD) Biventricular ICD (implantable cardioverter-defibrillator) in place GERD (gastroesophageal reflux disease) Hospital discharge follow-up HTN (hypertension) Iron deficiency anemia Migraines Mild recurrent major depression Moderate asthma Pacemaker Pneumonia Surgical History History of gastric bypass History of hip replacement History of hip replacement, total S/P cardiac cath Family History (Updated 04/07/23 @ 15:25 by Char Molina MD) Father CAD (coronary artery disease) Mother CAD (coronary artery disease) Son No problems noted. Daughter No problems noted. Son No problems noted. Social History (Updated 04/07/23 @ 15:25 by Char Molina MD) Household Members: Spouse and Children Housing: House Do you presently have visiting nurse or other home services: No Alcohol intake: unknown Patient Tobacco Use Status: Never used Tobacco e-Cigarette/Vaping Use: Never Used Second Hand Smoke Exposure: No service: No Current occupational status: disabled Cognitive needs: No Hearing needs: No Vision needs: Yes Questionnaire PHQ-9 Over the last 2 weeks, how often have you been bothered by any of the following problems? 1. Little interest or pleasure in doing things: several days 2. Feeling down, depressed, or hopeless: several days 3. Trouble falling or staying asleep, or sleeping too much: nearly every day 4. Feeling tired or having little energy: nearly every day 5. Poor appetite or overeating: several days 6. Feeling bad about yourself - or that you are a failure or have let yourself or your family down: not at all 7. Trouble concentrating on things, such as reading the newspaper or watching television: not at all 8. Moving or speaking so slowly that other people could have noticed. Or the opposite - being so fidgety or restless that you have been moving around a lot more than usual: not at all 9. Thoughts that you would be better off or of hurting yourself in some way: not at all Total score: 9 Depression Screening Interpretation: Positive Depression Screening Follow-up: Existing condition and New Medication prescribed 21362 - PHQ-9 Billing: Yes Source: Developed by Drs. Gene Martínez, Anitha B.W. Leander Bennett and colleagues, with an educational thomas from [employer]. Thrive Questionnaire Date Thrive assessed: 04/07/23 I am a: Patient What is your living situation today?: I have a steady place to live Within the past 12 months, did the food you bought not last and you didn't have the money to get more?: Never true Within the past 12 months, did you worry whether your food would run out before you got money to buy more?: Never true Do you have trouble paying for medicines?: No Do you have trouble getting transportation to medical appointments?: No Do you have trouble paying your heating and electricity bill?: No Do you have trouble taking care of your child, family member or friend?: No Do you have trouble with day-to-day activities such as bathing, preparing meals, shopping, managing finances, etc.?: No Are you currently unemployed and looking for a job?: No Are you interested in more education?: No Please select the resources that you would like help with: None Currently or been in a relationship where the following occur: no concerns reported AUDIT C Alcohol Use Questionnaire (AUDIT-C) 1. How often do you have a drink containing alcohol?: Never Total Score: 0 Score Reviewed/Action Taken: No GALINA-7 AMB Questionnaire GALINA-7 Date GALINA - 7 assessed: 04/07/23 Feeling nervous, anxious, or on edge: 1 = Several days Not being able to stop or control worryin = Not at all Worrying too much about different things: 1 = Several days Trouble relaxin = Not at all Being so restless that it is hard to sit still: 0 = Not at all Becoming easily annoyed or irritable: 0 = Not at all Feeling afraid as if something awful might happen: 1 = Several days Total GALINA-7 score (0-4 normal; 5-9 mild; 10-14 moderate; 15-21 severe): 3 Source: Developed by Drs. Gene Martínez, Leander Colon and colleagues, with an educational thomas from [employer]. GALINA-7 Assessment Billing GALINA-7 Assessment Tool: GALINA-7 Assessment 89492 Review of Systems Const All systems reviewed & are unremarkable except as noted in HPI and below Eyes Reports no additional complaints, Denies change in vision and Denies other visual disturbances Card Denies chest pain at rest, Denies chest pain with activity, Denies edema, Denies irregular heart rhythm, Denies claudication, Denies dyspnea, Denies dyspnea on exertion, Denies orthopnea, Denies paroxysmal nocturnal dyspnea and Denies slow heart rate Resp Denies cough, Denies dyspnea and Denies dyspnea on exertion GI Denies abdominal pain, Denies change in bowel habits, Denies excessive flatus, Denies nausea and Denies vomiting Denies urinary incontinence, Denies urinary hesitancy and Denies urinary urgency Musc Denies abnormal gait, Denies atrophy, Denies deformity and Denies limited range of motion Skin/Breast Denies bleeding lesions, Denies changing lesions and Denies rash Neuro Denies abnormal gait and Denies lack of coordination Physical exam (Primary Care) Vital Signs: Last Vital Signs BP 112/72 04/07/23 14:53 BMI result Body Mass Index 40.4 Tobacco/Smoking Status: Tobacco use Status Tobacco use date assessed 04/07/23 04/07/23 14:58 Patient Tobacco Use Status Never used Tobacco 04/07/23 15:25 e-Cigarette/Vaping Use Never Used 04/07/23 15:25 PHQ-9: PHQ-9 Score PHQ-9: Total score 9 04/07/23 15:50 Depression Screening Interpretation: Positive Depression Screening Follow-up: Existing condition and New Medication prescribed Thrive Assessment: Date of Thrive Assessment Date Thrive assessed 04/07/23 04/07/23 14:58 Currently or been in a relationship where the following occur: no concerns reported Const Orientation/consciousness: patient oriented x3 [facility] Head: Yes normal to inspection, Yes normocephalic and Yes atraumatic Ears: external ears normal Eyes General: appearance normal, both eyes and all related structures Eyelids: Yes eyelids normal Conjunctivae: conjunctivae normal Neck Neck: Yes normal visual inspection and Yes supple Resp Effort & Inspection: normal respiratory effort Auscultation: clear to auscultation bilaterally Cardio Jugular venous distension: no JVD Rate: regular rate Rhythm: regular rhythm Heart sounds: S1 normal heart sound present and S2 normal heart sound present GI Inspection: Yes normal to inspection Palpation (GI): Soft to palpation and nontender Auscultation: normal bowel sounds Skin General skin exam: no rashes or lesions noted Neuro General: patient oriented x3 and no focal motor deficits Extrem General: Yes full ROM Psych Appearance: grossly normal Assessment and Plan Assessment & Plan (1) Physical exam: Code(s): Z00.00 - Encounter for general adult medical examination without abnormal findings Plan: Repeat in a year (2) Morbid obesity: Code(s): E66.01 - Morbid (severe) obesity due to excess calories Plan: Advised diet and exercise. BMI goal is less than 30 (3) Chronic systolic (congestive) heart failure: Code(s): I50.22 - Chronic systolic (congestive) heart failure Plan: Use diuretics as needed. Weight daily. Goal is to not gain 5 lb in a week. Continue Entresto. (4) Non-ST elevated myocardial infarction (non-STEMI): Code(s): I21.4 - Non-ST elevation (NSTEMI) myocardial infarction Plan: Continue aspirin for secondary prophylaxis. Follow-up with Cardiology. (5) Mild recurrent major depression: Code(s): F33.0 - Major depressive disorder, recurrent, mild Plan: Start venlafaxine. Orders: Orders Comprehensive Peggs. Panel Fast Today I50.9 - Heart failure, unspecified IRON PROFILE Today D64.9 - Anemia, unspecified Lipid Panel Today E78.5 - Hyperlipidemia, unspecified NT-proBNP Today I50.9 - Heart failure, unspecified Vitamin D 25-OH Total Today E55.9 - Vitamin D deficiency, unspecified Complete Blood Count Auto Diff Today D64.9 - Anemia, unspecified XR DEXA axial skeleton Today N95.9 - Unspecified menopausal and perimenopausal disorder MM screening mammo BI Today Z12.31 - Encounter for screening mammogram for malignant neoplasm of breast Referrals Cologuard Test Z12.11 - Encounter for screening for malignant neoplasm of colon, Z12.12 - Encounter for screening for malignant neoplasm of rectum Ophthalmology Referral H53.8 - Other visual disturbances Medications: Discontinued omeprazole 40 mg PO DAILY 90 days 90 caps 3RF furosemide 80 mg (2 x 40 mg) PO DAILY 90 days 180 tabs 3RF I42.9 - Cardiomyopathy, unspecified Coding Level of Care Code Est Pt Prev Care 40-64y(28049) Diagnoses Physical exam Z00.00 Morbid obesity E66.01 Chronic systolic (congestive) heart failure I50.22 Non-ST elevated myocardial infarction (non-STEMI) I21.4 Mild recurrent major depression F33.0 Additional Codes GALINA-7 Assessment Billing - GALINA-7 Assessment Tool: GALINA-7 Assessment [id number] ([id number]) Time Spent (min) 38
[2023-04-07 14:53] VITALS: BP 112/72; BMI 40.4
== END 2023-04-07 15:36 | disposition home or self-care (01) ==
PROVIDERS: PCP Internal Medicine; Visit Provider Internal Medicine
DX: Z00.00 Encounter for general adult medical examination without abnormal findings (principal); E66.01 Morbid (severe) obesity due to excess calories; Z68.41 Body mass index [BMI] 40.0-44.9, adult; I50.22 Chronic systolic (congestive) heart failure; I21.4 Non-ST elevation (NSTEMI) myocardial infarction; F33.0 Major depressive disorder, recurrent, mild
CPT/HCPCS: 99396

== ENCOUNTER 2023-04-13 13:07 | Outpatient (AMB) | payer OTHER, SELFPAY ==
--- NOTE | 2023-04-13 13:17 | A.OFFVIS_ITS ---
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 Accompanied by: daughter in law Allergies gabapentin Allergy (Intermediate, Verified 04/13/23 13:20) memory loss ibuprofen Allergy (Intermediate, Verified 04/13/23 13:20) abdominal pain celecoxib [Celebrex] Allergy (Unknown, Verified 04/13/23 13:20) Unknown Medication List - Last Reviewed 04/13/23 by Maite Ramirez bisoprolol fumarate 2.5 mg PO DAILY blood pressure monitor As directed dapagliflozin propanediol (Farxiga) 10 mg PO DAILY ferrous sulfate 325 mg PO DAILY furosemide (Lasix) 40 mg PO BID@0900,1500 omeprazole 40 mg PO BID sacubitril-valsartan 24-26 mg (Entresto) 1 tab PO BID spironolactone 25 mg PO DAILY sumatriptan succinate 50 mg PO Q2H PRN tramadol 50 mg PO Q8H 30 days HPI HPI Comments History of Present Illness Details Montserrat returns for follow-up regarding cardiomyopathy. She has a history of nonischemic cardiomyopathy. She also has Bi V ICD in place. Recently admitted for chest pain symptoms. Troponins were significantly elevated. Due to this, she had another cardiac catheterization that however did not show any significant CAD. Etiology for the troponin elevation was not very clear. Overall, she states she is feeling good. No new symptoms. In the past, not tolerant of beta-blockers but during [facility] transfer, it seems she was put on bisoprolol and she is taking that. [facility] Medical History Biventricular ICD (implantable cardioverter-defibrillator) in place Cardiomyopathy GERD (gastroesophageal reflux disease) Hospital discharge follow-up HTN (hypertension) Iron deficiency anemia LBBB (left bundle branch block) Migraines Mild recurrent major depression Moderate asthma Pacemaker Pneumonia Surgical History History of gastric bypass History of hip replacement History of hip replacement, total S/P cardiac cath Family History Father CAD (coronary artery disease) Mother CAD (coronary artery disease) Son No problems noted. Daughter No problems noted. Son No problems noted. Social History Household Members: Spouse and Children Housing: House Do you presently have visiting nurse or other home services: No Alcohol intake: unknown Patient Tobacco Use Status: Never used Tobacco e-Cigarette/Vaping Use: Never Used Second Hand Smoke Exposure: No service: No Current occupational status: disabled Cognitive needs: No Hearing needs: No Vision needs: Yes Review of Systems Const Denies weakness ENT Denies dizziness Card Denies chest pain, Denies chest pain with activity, Denies syncope, Denies rapid heart rate, Denies pedal edema, Denies edema, Denies leg edema, Denies lightheadedness, Denies palpitations, Denies dyspnea, Denies dyspnea on exertion and Denies orthopnea Resp Denies cough, Denies dyspnea and Denies dyspnea on exertion GI Denies hematochezia and Denies change in stool character Musc Denies abnormal gait, Denies muscle cramps, Denies muscle weakness, Denies numbness, Denies radiating pain into limb and Denies tingling Neuro Denies abnormal gait, Denies dizziness, Denies syncope, Denies numbness, Denies tingling and Denies weakness Endo Denies palpitations Physical Exam Vital Signs: Last Vital Signs Pulse 55 04/13/23 13:18 BP 98/60 04/13/23 13:18 BMI result Body Mass Index 40.6 Const General: comfortable and no acute distress Orientation/consciousness: patient oriented x3 HEENT Other: Unremarkable Head: Yes normal to inspection Neck Neck: Yes normal visual inspection Chest Chest palpation & inspection: normal inspection of the chest Resp Auscultation: clear to auscultation bilaterally Cardio Palpation: normal PMI Heart sounds: S1 normal heart sound present, S2 normal heart sound present, no gallops, no murmurs and no rubs GI Palpation (GI): Soft to palpation Back/Spine/Pelvis Other: unremarkable Skin General skin exam: no rashes or lesions noted Neuro General: patient oriented x3 Extrem General: Yes normal to inspection Psych Mental Status: mental status grossly normal Office Procedures EKG Details: EKG with atrial sensed biventricular paced rhythm at 64/Min. [id number], Complete Assessment & Plan Assessment & Plan (1) Cardiomyopathy: Code(s): I42.9 - Cardiomyopathy, unspecified (2) Biventricular ICD (implantable cardioverter-defibrillator) in place: Code(s): Z95.810 - Presence of automatic (implantable) cardiac defibrillator Plan In the most recent echocardiogram, LVEF 16%. [id number]-ju-tzsmrisl mitral regurgitation. Dilated LV cavity. Most recent cardiac catheterization shows normal coronary arteries. Hence etiology for the troponin elevation not very clear. Possible stress induced vs vasospasm vs others. In terms of symptoms, recovered completely. Continue medical therapy for stable cardiomyopathy. She is on bisoprolol, Entresto, spironolactone, Farxiga and Lasix. Overall, seems to be fairly optimized. Continue this regimen. We will monitor the ICD remotely. May keep her follow-up appointment in June. Total time spent including review of data from [facility], counseling, documentation, coordination of care-32 minutes. Medications: Discontinued omeprazole 40 mg PO DAILY 90 days 90 caps 3RF furosemide 80 mg (2 x 40 mg) PO DAILY 90 days 180 tabs 3RF I42.9 - Cardiomyopathy, unspecified Coding Level of Care Code Est Pt Level 4 (55069) Diagnoses Cardiomyopathy I42.9 Biventricular ICD (implantable cardioverter-defibrillator) in place Z95.810 CPT Codes EKG - CPT: 63769-[id number], Complete ([id number])
[2023-04-13 13:18] VITALS: BP 98/60; PULSE 55; BMI 40.6
== END 2023-04-13 13:40 | disposition home or self-care (01) ==
PROVIDERS: PCP Internal Medicine; Visit Provider Internal Medicine
DX: I42.9 Cardiomyopathy, unspecified (principal); Z95.810 Presence of automatic (implantable) cardiac defibrillator
CPT/HCPCS: 93010; 99214

== ENCOUNTER → 2023-04-13 13:07 | Outpatient (BNVA) | payer OTHER, SELFPAY | PROVIDERS: PCP Internal Medicine; Visit Provider Internal Medicine | DX: I42.9 Cardiomyopathy, unspecified (principal); Z79.899 Other long term (current) drug therapy; Z95.810 Presence of automatic (implantable) cardiac defibrillator | CPT/HCPCS: 93005; 99212 ==

== ENCOUNTER → 2023-04-18 23:59 | Outpatient (BNV) | payer OTHER, SELFPAY ==
--- NOTE | 2023-04-24 14:27 | MHC.OFFVIS ---
Intake Intake Visit Reasons: Remote HF Monitoring- [employer] Allergies gabapentin Allergy (Intermediate, Verified 04/13/23 13:20) memory loss ibuprofen Allergy (Intermediate, Verified 04/13/23 13:20) abdominal pain celecoxib [Celebrex] Allergy (Unknown, Verified 04/13/23 13:20) Unknown [facility] Medical History Biventricular ICD (implantable cardioverter-defibrillator) in place Cardiomyopathy GERD (gastroesophageal reflux disease) Hospital discharge follow-up HTN (hypertension) Iron deficiency anemia LBBB (left bundle branch block) Migraines Mild recurrent major depression Moderate asthma Pacemaker Pneumonia Surgical History History of gastric bypass History of hip replacement History of hip replacement, total S/P cardiac cath Family History Father CAD (coronary artery disease) Mother CAD (coronary artery disease) Son No problems noted. Daughter No problems noted. Son No problems noted. Social History Household Members: Spouse and Children Housing: House Do you presently have visiting nurse or other home services: No Alcohol intake: unknown Patient Tobacco Use Status: Never used Tobacco e-Cigarette/Vaping Use: Never Used Second Hand Smoke Exposure: No service: No Current occupational status: disabled Cognitive needs: No Hearing needs: No Vision needs: Yes Office Procedures Cardiac Device Check Cardiac Device Check Details: Date of service- 04/18/2023; based on impedance data and physiological variables, there is no evidence of worsening congestive heart failure. [id number] Cardiac Device Interrogation, cardio physiologic monitor Procedure code (CPT) selection complete Assessment & Plan Assessment & Plan (1) Chronic systolic (congestive) heart failure: Code(s): I50.22 - Chronic systolic (congestive) heart failure Coding Level of Care Code Procedure Only Diagnoses Chronic systolic (congestive) heart failure I50.22 CPT Codes Cardiac Device Check - Cardiac Device 15: [id number] Cardiac Device Interrogation, cardio physiologic monitor ([id number])
== END ==
PROVIDERS: PCP Internal Medicine; Visit Provider Internal Medicine
DX: I50.22 Chronic systolic (congestive) heart failure (principal)
CPT/HCPCS: 93297

== ENCOUNTER → 2023-05-19 23:59 | Outpatient (BNV) | payer OTHER, SELFPAY ==
--- NOTE | 2023-05-19 16:02 | MHC.OFFVIS ---
Intake Intake Visit Reasons: Remote ICD Check- [employer] Allergies gabapentin Allergy (Intermediate, Verified 04/13/23 13:20) memory loss ibuprofen Allergy (Intermediate, Verified 04/13/23 13:20) abdominal pain celecoxib [Celebrex] Allergy (Unknown, Verified 04/13/23 13:20) Unknown [facility] Medical History Biventricular ICD (implantable cardioverter-defibrillator) in place Cardiomyopathy GERD (gastroesophageal reflux disease) Hospital discharge follow-up HTN (hypertension) Iron deficiency anemia LBBB (left bundle branch block) Migraines Mild recurrent major depression Moderate asthma Pacemaker Pneumonia Surgical History History of gastric bypass History of hip replacement History of hip replacement, total S/P cardiac cath Family History Father CAD (coronary artery disease) Mother CAD (coronary artery disease) Son No problems noted. Daughter No problems noted. Son No problems noted. Social History Household Members: Spouse and Children Housing: House Do you presently have visiting nurse or other home services: No Alcohol intake: unknown Patient Tobacco Use Status: Never used Tobacco e-Cigarette/Vaping Use: Never Used Second Hand Smoke Exposure: No service: No Current occupational status: disabled Cognitive needs: No Hearing needs: No Vision needs: Yes Office Procedures Cardiac Device Check Cardiac Device Check Details: Date of service 05/19/2023; Battery life >8 years; normal lead parameters; adequate Bi V pacing; no treated VT/VF; ; normal ICD function. [id number] Cardiac Interrogation, implant defibrillator w/interim Procedure code (CPT) selection complete Assessment & Plan Assessment & Plan (1) Chronic systolic (congestive) heart failure: Code(s): I50.22 - Chronic systolic (congestive) heart failure Coding Level of Care Code Procedure Only Diagnoses Chronic systolic (congestive) heart failure I50.22 CPT Codes Cardiac Device Check - Cardiac Device 13: [id number] Cardiac Interrogation, implant defibrillator w/interim ([id number])
== END ==
PROVIDERS: PCP Internal Medicine; Visit Provider Internal Medicine
DX: I50.22 Chronic systolic (congestive) heart failure (principal); Z95.810 Presence of automatic (implantable) cardiac defibrillator
CPT/HCPCS: 93295

== ENCOUNTER → 2023-05-19 23:59 | Outpatient (BNV) | payer OTHER, SELFPAY ==
--- NOTE | 2023-05-19 16:01 | A.OFFVIS_ITS ---
Intake Intake Visit Reasons: Remote HF Monitoring- [employer] Allergies gabapentin Allergy (Intermediate, Verified 04/13/23 13:20) memory loss ibuprofen Allergy (Intermediate, Verified 04/13/23 13:20) abdominal pain celecoxib [Celebrex] Allergy (Unknown, Verified 04/13/23 13:20) Unknown [facility] Medical History Biventricular ICD (implantable cardioverter-defibrillator) in place Cardiomyopathy GERD (gastroesophageal reflux disease) Hospital discharge follow-up HTN (hypertension) Iron deficiency anemia LBBB (left bundle branch block) Migraines Mild recurrent major depression Moderate asthma Pacemaker Pneumonia Surgical History History of gastric bypass History of hip replacement History of hip replacement, total S/P cardiac cath Family History Father CAD (coronary artery disease) Mother CAD (coronary artery disease) Son No problems noted. Daughter No problems noted. Son No problems noted. Social History Household Members: Spouse and Children Housing: House Do you presently have visiting nurse or other home services: No Alcohol intake: unknown Patient Tobacco Use Status: Never used Tobacco e-Cigarette/Vaping Use: Never Used Second Hand Smoke Exposure: No service: No Current occupational status: disabled Cognitive needs: No Hearing needs: No Vision needs: Yes Office Procedures Cardiac Device Check Cardiac Device Check Details: Date of service- 05/19/2023; based on impedance data and physiological variables, there is no evidence of worsening congestive heart failure. [id number] Cardiac Device Interrogation, cardio physiologic monitor Procedure code (CPT) selection complete Assessment & Plan Assessment & Plan (1) Chronic systolic (congestive) heart failure: Code(s): I50.22 - Chronic systolic (congestive) heart failure Coding Level of Care Code Procedure Only Diagnoses Chronic systolic (congestive) heart failure I50.22 CPT Codes Cardiac Device Check - Cardiac Device 15: [id number] Cardiac Device Interrogation, cardio physiologic monitor ([id number])
== END ==
PROVIDERS: PCP Internal Medicine; Visit Provider Internal Medicine
DX: I50.22 Chronic systolic (congestive) heart failure (principal)
CPT/HCPCS: 93297

== ENCOUNTER → 2023-06-19 23:59 | Outpatient (BNV) | payer OTHER, SELFPAY ==
--- NOTE | 2023-06-25 15:33 | A.OFFVIS_ITS ---
Intake Intake Visit Reasons: Remote HF Monitoring- [employer] Allergies gabapentin Allergy (Intermediate, Verified 06/21/23 14:21) memory loss ibuprofen Allergy (Intermediate, Verified 06/21/23 14:21) abdominal pain celecoxib [Celebrex] Allergy (Unknown, Verified 06/21/23 14:21) Unknown [facility] Medical History Biventricular ICD (implantable cardioverter-defibrillator) in place Cardiomyopathy GERD (gastroesophageal reflux disease) Hospital discharge follow-up HTN (hypertension) Iron deficiency anemia LBBB (left bundle branch block) Migraines Mild recurrent major depression Moderate asthma Pacemaker Pneumonia Surgical History S/P cardiac cath History of gastric bypass History of hip replacement, total History of hip replacement Family History Father CAD (coronary artery disease) Mother CAD (coronary artery disease) Son No problems noted. Daughter No problems noted. Son No problems noted. Social History Household Members: Spouse and Children Housing: House Do you presently have visiting nurse or other home services: No Alcohol intake: unknown Patient Tobacco Use Status: Never used Tobacco e-Cigarette/Vaping Use: Never Used Second Hand Smoke Exposure: No service: No Current occupational status: disabled Cognitive needs: No Hearing needs: No Vision needs: Yes Office Procedures Cardiac Device Check Cardiac Device Check Details: Date of service- 06/19/2023; based on impedance data and physiological vari anish, there is no evidence of worsening congestive heart failure. [id number] Cardiac Device Interrogation, cardio physiologic monitor Procedure code (CPT) selection complete Coding Level of Care Code Procedure Only CPT Codes Cardiac Device Check - Cardiac Device 15: [id number] Cardiac Device Interrogation, cardio physiologic monitor ([id number])
== END ==
PROVIDERS: PCP Internal Medicine; Visit Provider Internal Medicine
DX: I50.22 Chronic systolic (congestive) heart failure (principal)
CPT/HCPCS: 93297

== ENCOUNTER 2023-06-21 13:58 | Outpatient (AMB) | payer OTHER, SELFPAY ==
[2023-06-21 14:19] VITALS: BP 96/54; PULSE 68; BMI 41.7
--- NOTE | 2023-06-21 14:19 | A.OFFVIS_ITS ---
Intake Vital Signs 06/21/23 14:19 Height 4 ft 11 in Weight 206 lb 5.643 oz BMI 41.7 BP 96/54 L Blood Pressure Location Lt brachial Position Sitting Pulse 68 Intake Visit Reasons: 6 month f/ up w/ device check Intake Note: 6 month follow up Straight Cutter Machine Required: No Accompanied by: Self / Same As Patient Allergies gabapentin Allergy (Intermediate, Verified 06/21/23 14:21) memory loss ibuprofen Allergy (Intermediate, Verified 06/21/23 14:21) abdominal pain celecoxib [Celebrex] Allergy (Unknown, Verified 06/21/23 14:21) Unknown Medication List - Last Reconciled 06/21/23 by Luis Erickson MD bisoprolol fumarate 2.5 mg (1/2 x 5 mg) PO DAILY 90 days blood pressure monitor As directed dapagliflozin propanediol (Farxiga) 10 mg PO DAILY ferrous sulfate 325 mg PO DAILY furosemide (Lasix) 40 mg PO BID@0900,1500 30 days omeprazole 40 mg PO BID sacubitril-valsartan 24-26 mg (Entresto) 1 tab PO BID 90 days spironolactone 25 mg PO DAILY sumatriptan succinate 50 mg PO Q2H PRN tramadol 50 mg PO Q8H 30 days HPI HPI Comments History of Present Illness Details Montserrat returns for follow-up regarding cardiomyopathy. She has a history of nonischemic cardiomyopathy. She also has Bi V ICD in place. Recently admitted for chest pain symptoms. Troponins were significantly elevated. Due to this, she had another cardiac catheterization that however did not show any significant CAD. Etiology for the troponin elevation was not very clear. Some sensations of heart pounding at different times. Shortness of breath is still present but not as bad as before. Otherwise, feels good. [facility] Medical History Biventricular ICD (implantable cardioverter-defibrillator) in place Cardiomyopathy GERD (gastroesophageal reflux disease) Hospital discharge follow-up HTN (hypertension) Iron deficiency anemia LBBB (left bundle branch block) Migraines Mild recurrent major depression Moderate asthma Pacemaker Pneumonia Surgical History S/P cardiac cath History of gastric bypass History of hip replacement, total History of hip replacement Family History Father CAD (coronary artery disease) Mother CAD (coronary artery disease) Son No problems noted. Daughter No problems noted. Son No problems noted. Social History Household Members: Spouse and Children Housing: House Do you presently have visiting nurse or other home services: No Alcohol intake: unknown Patient Tobacco Use Status: Never used Tobacco e-Cigarette/Vaping Use: Never Used Second Hand Smoke Exposure: No service: No Current occupational status: disabled Cognitive needs: No Hearing needs: No Vision needs: Yes Review of Systems Const All systems reviewed & are unremarkable except as noted in HPI and below Reports as per HPI and Reports no additional complaints Eyes Reports as per HPI and Denies no additional complaints ENT Denies no additional complaints and Reports as per HPI Card Reports as per HPI, Reports no additional complaints, Denies acrocyanosis, Denies chest pain, Denies leg edema, Denies lightheadedness, Denies palpitations and Denies dyspnea Resp Reports as per HPI, Denies no additional complaints and Denies dyspnea GI Reports as per HPI and Denies no additional complaints Reports as per HPI Musc Reports no additional complaints and Reports as per HPI Skin/Breast Reports system reviewed and no additional complaints, except as documented Neuro Reports no additional complaints and Reports as per HPI Psych Reports no additional complaints and Reports as per HPI Endo Reports no additional complaints, Reports as per HPI and Denies palpitations Matti/Lymph Reports no additional complaints and Reports as per HPI Aller/Immun Reports no additional complaints and Reports as per HPI Physical Exam Vital Signs: Last Vital Signs Pulse 68 06/21/23 14:19 BP 96/54 L 06/21/23 14:19 BMI result Body Mass Index 41.7 Const General: comfortable and no acute distress Orientation/consciousness: patient oriented x3 HEENT Other: Unremarkable Head: Yes normal to inspection Neck Neck: Yes normal visual inspection Chest Chest palpation & inspection: normal inspection of the chest Resp Auscultation: clear to auscultation bilaterally Cardio Palpation: normal PMI Heart sounds: S1 normal heart sound present, S2 normal heart sound present, no gallops, no murmurs and no rubs GI Palpation (GI): Soft to palpation Back/Spine/Pelvis Other: unremarkable Skin General skin exam: no rashes or lesions noted Neuro General: patient oriented x3 Extrem Other: 1+ edema General: Yes normal to inspection Psych Mental Status: mental status grossly normal Office Procedures EKG Details: ICD interrogated today P biventricular device. Battery status more than 8 years. Normal lead parameters. Adequate biventricular pacing. No episodes. Overall, normal device function. [id number], Complete Assessment & Plan Assessment & Plan (1) Cardiomyopathy: Code(s): I42.9 - Cardiomyopathy, unspecified (2) Biventricular ICD (implantable cardioverter-defibrillator) in place: Code(s): Z95.810 - Presence of automatic (implantable) cardiac defibrillator Plan In the most recent echocardiogram, LVEF 16%. [id number] mitral regurgitation. Dilated LV cavity. Cardiac catheterization shows normal coronary arteries. Etiology could be left bundle-branch related cardiomyopathy. She seems fairly well compensated. Continue current medical regimen including bisoprolol, Entresto, Farxiga, spironolactone and diuretics. Periodically labs can be performed. Can coordinate this with PCP orders. ICD can be monitored remotely. Otherwise, we will see her back in 6 months time. In the interim, to call with concerns. Coding Level of Care Code Est Pt Level 4 (13988) Diagnoses Cardiomyopathy I42.9 Biventricular ICD (implantable cardioverter-defibrillator) in place Z95.810 CPT Codes EKG - CPT: 67067-[id number], Complete ([id number])
== END 2023-06-21 14:40 | disposition home or self-care (01) ==
PROVIDERS: Visit Provider Internal Medicine
DX: I42.9 Cardiomyopathy, unspecified (principal); Z95.810 Presence of automatic (implantable) cardiac defibrillator
CPT/HCPCS: 93010; 99214

== ENCOUNTER → 2023-06-21 13:58 | Outpatient (BNVA) | payer OTHER, SELFPAY | PROVIDERS: Visit Provider Internal Medicine | DX: Z95.810 Presence of automatic (implantable) cardiac defibrillator (principal); I42.9 Cardiomyopathy, unspecified | CPT/HCPCS: 93005; 99212 ==

== ENCOUNTER → 2023-07-20 23:59 | Outpatient (BNV) | payer OTHER, SELFPAY ==
--- NOTE | 2023-07-20 18:22 | MHC.OFFVIS ---
Intake Intake Visit Reasons: Remote HF Monitoring- [employer] Allergies gabapentin Allergy (Intermediate, Verified 06/21/23 14:21) memory loss ibuprofen Allergy (Intermediate, Verified 06/21/23 14:21) abdominal pain celecoxib [Celebrex] Allergy (Unknown, Verified 06/21/23 14:21) Unknown [facility] Medical History Biventricular ICD (implantable cardioverter-defibrillator) in place Cardiomyopathy GERD (gastroesophageal reflux disease) Hospital discharge follow-up HTN (hypertension) Iron deficiency anemia LBBB (left bundle branch block) Migraines Mild recurrent major depression Moderate asthma Pacemaker Pneumonia Surgical History S/P cardiac cath History of gastric bypass History of hip replacement, total History of hip replacement Family History Father CAD (coronary artery disease) Mother CAD (coronary artery disease) Son No problems noted. Daughter No problems noted. Son No problems noted. Social History Household Members: Spouse and Children Housing: House Do you presently have visiting nurse or other home services: No Alcohol intake: unknown Patient Tobacco Use Status: Never used Tobacco e-Cigarette/Vaping Use: Never Used Second Hand Smoke Exposure: No service: No Current occupational status: disabled Cognitive needs: No Hearing needs: No Vision needs: Yes Office Procedures Cardiac Device Check Cardiac Device Check Details: Date of service- 07/20/2023; Optivol shows a slight uptrend, but still doesn't cross the threshold for acute CHF. To be followed. D/w [employer]. [id number] Cardiac Device Interrogation, cardio physiologic monitor Procedure code (CPT) selection complete Assessment & Plan Assessment & Plan (1) Chronic systolic (congestive) heart failure: Code(s): I50.22 - Chronic systolic (congestive) heart failure Plan x Coding Level of Care Code Procedure Only Diagnoses Chronic systolic (congestive) heart failure I50.22 CPT Codes Cardiac Device Check - Cardiac Device 15: [id number] Cardiac Device Interrogation, cardio physiologic monitor ([id number])
== END ==
PROVIDERS: PCP Internal Medicine; Visit Provider Internal Medicine
DX: I50.22 Chronic systolic (congestive) heart failure (principal)
CPT/HCPCS: 93297

== ENCOUNTER → 2023-08-20 23:59 | Outpatient (BNV) | payer OTHER, SELFPAY ==
--- NOTE | 2023-08-23 19:41 | A.OFFVIS_ITS ---
Intake Intake Visit Reasons: Remote ICD Check- [employer] Allergies gabapentin Allergy (Intermediate, Verified 06/21/23 14:21) memory loss ibuprofen Allergy (Intermediate, Verified 06/21/23 14:21) abdominal pain celecoxib [Celebrex] Allergy (Unknown, Verified 06/21/23 14:21) Unknown [facility] Medical History Biventricular ICD (implantable cardioverter-defibrillator) in place Cardiomyopathy GERD (gastroesophageal reflux disease) Hospital discharge follow-up HTN (hypertension) Iron deficiency anemia LBBB (left bundle branch block) Migraines Mild recurrent major depression Moderate asthma Pacemaker Pneumonia Surgical History S/P cardiac cath History of gastric bypass History of hip replacement, total History of hip replacement Family History Father CAD (coronary artery disease) Mother CAD (coronary artery disease) Son No problems noted. Daughter No problems noted. Son No problems noted. Social History Household Members: Spouse and Children Housing: House Do you presently have visiting nurse or other home services: No Alcohol intake: unknown Patient Tobacco Use Status: Never used Tobacco e-Cigarette/Vaping Use: Never Used Second Hand Smoke Exposure: No service: No Current occupational status: disabled Cognitive needs: No Hearing needs: No Vision needs: Yes Office Procedures Cardiac Device Check Cardiac Device Check Details: Date of service 08/20/2023; Battery life >7 years; normal lead parameters; no t reated VT/VF; adequate biV pacing; normal ICD function. [id number] Cardiac Interrogation, implant defibrillator w/interim Procedure code (CPT) selection complete Assessment & Plan Assessment & Plan (1) Chronic systolic (congestive) heart failure: Code(s): I50.22 - Chronic systolic (congestive) heart failure Plan x Coding Level of Care Code Procedure Only Diagnoses Chronic systolic (congestive) heart failure I50.22 CPT Codes Cardiac Device Check - Cardiac Device 13: [id number] Cardiac Interrogation, implant defibrillator w/interim ([id number])
== END ==
PROVIDERS: PCP Internal Medicine; Visit Provider Internal Medicine
DX: I50.22 Chronic systolic (congestive) heart failure (principal); Z95.810 Presence of automatic (implantable) cardiac defibrillator
CPT/HCPCS: 93295

== ENCOUNTER → 2023-08-20 23:59 | Outpatient (BNV) | payer OTHER, SELFPAY ==
--- NOTE | 2023-08-23 19:43 | A.OFFVIS_ITS ---
Intake Intake Visit Reasons: Remote HF Monitoring- [employer] Allergies gabapentin Allergy (Intermediate, Verified 06/21/23 14:21) memory loss ibuprofen Allergy (Intermediate, Verified 06/21/23 14:21) abdominal pain celecoxib [Celebrex] Allergy (Unknown, Verified 06/21/23 14:21) Unknown [facility] Medical History Biventricular ICD (implantable cardioverter-defibrillator) in place Cardiomyopathy GERD (gastroesophageal reflux disease) Hospital discharge follow-up HTN (hypertension) Iron deficiency anemia LBBB (left bundle branch block) Migraines Mild recurrent major depression Moderate asthma Pacemaker Pneumonia Surgical History S/P cardiac cath History of gastric bypass History of hip replacement, total History of hip replacement Family History Father CAD (coronary artery disease) Mother CAD (coronary artery disease) Son No problems noted. Daughter No problems noted. Son No problems noted. Social History Household Members: Spouse and Children Housing: House Do you presently have visiting nurse or other home services: No Alcohol intake: unknown Patient Tobacco Use Status: Never used Tobacco e-Cigarette/Vaping Use: Never Used Second Hand Smoke Exposure: No service: No Current occupational status: disabled Cognitive needs: No Hearing needs: No Vision needs: Yes Office Procedures Cardiac Device Check Cardiac Device Check Details: Date of service- 08/20/2023; based on impedance data and physiological vari anish, there is no evidence of worsening congestive heart failure. [id number] Cardiac Device Interrogation, cardio physiologic monitor Procedure code (CPT) selection complete Assessment & Plan Assessment & Plan (1) Chronic systolic (congestive) heart failure: Code(s): I50.22 - Chronic systolic (congestive) heart failure Plan x Coding Level of Care Code Procedure Only Diagnoses Chronic systolic (congestive) heart failure I50.22 CPT Codes Cardiac Device Check - Cardiac Device 15: [id number] Cardiac Device Interrogation, cardio physiologic monitor ([id number])
== END ==
PROVIDERS: PCP Internal Medicine; Visit Provider Internal Medicine
DX: I50.22 Chronic systolic (congestive) heart failure (principal); Z95.810 Presence of automatic (implantable) cardiac defibrillator
CPT/HCPCS: 93297

== ENCOUNTER 2023-09-07 15:23 | Outpatient (AMB) | payer OTHER, SELFPAY ==
--- NOTE | 2023-09-07 15:24 | MHC.PC.OV ---
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 Accompanied by: Self / Same As Patient Allergies gabapentin Allergy (Intermediate, Verified 09/07/23 15:41) memory loss ibuprofen Allergy (Intermediate, Verified 09/07/23 15:41) abdominal pain celecoxib [Celebrex] Allergy (Unknown, Verified 09/07/23 15:41) Unknown Medication List - Last Reconciled 09/07/23 by Char Molina MD bisoprolol fumarate 2.5 mg (1/2 x 5 mg) PO DAILY 90 days blood pressure monitor As directed dapagliflozin propanediol (Farxiga) 10 mg PO DAILY furosemide (Lasix) 40 mg PO BID@0900,1500 30 days omeprazole 40 mg PO BID sacubitril-valsartan 24-26 mg (Entresto) 1 tab PO BID 90 days spironolactone 25 mg PO DAILY sumatriptan succinate 50 mg PO Q2H PRN tramadol 50 mg PO Q8H 30 days Tobacco use date assessed: 09/07/23 Dental Screening Dental Screen Date: 09/07/23 Did you have a dental visit in the last 12 months?: Yes Did you have a dental problem in the last 6 months where you did not have access to dental care?: No Was dental information given to patient?: Patient has dentist HPI HPI Comments History of Present Illness Details This is a 57-year-old female with migraines, GERD, hypertension and chronic systolic congestive heart failure that has tele health visit today for follow-up on her conditions. Migraines is very variable and can be 1-2 months without a migraine but then can be few days with the migraine. No neurological deficit associated with the migraine. Blood pressure at home has been stable. Denies gaining 5 lb in a week and is follow by cardiology for her congestive heart failure. GERD stable with PPIs. No chest pain or shortness of breath. Compliant with medications. [facility] Medical History (Updated 09/07/23 @ 15:48 by Char Molina MD) CHF exacerbation Acute on chronic systolic and diastolic heart failure, NYHA class 3 Biventricular ICD (implantable cardioverter-defibrillator) in place Pacemaker LBBB (left bundle branch block) Cardiomyopathy Mild recurrent major depression Moderate asthma Pneumonia Hospital discharge follow-up GERD (gastroesophageal reflux disease) Migraines Iron deficiency anemia HTN (hypertension) Surgical History S/P cardiac cath History of gastric bypass History of hip replacement, total History of hip replacement Family History Father CAD (coronary artery disease) Mother CAD (coronary artery disease) Son No problems noted. Daughter No problems noted. Son No problems noted. Social History Household Members: Spouse and Children Housing: House Do you presently have visiting nurse or other home services: No Alcohol intake: unknown Patient Tobacco Use Status: Never used Tobacco e-Cigarette/Vaping Use: Never Used Second Hand Smoke Exposure: No service: No Current occupational status: disabled Cognitive needs: No Hearing needs: No Vision needs: Yes Questionnaire PHQ-9 Over the last 2 weeks, how often have you been bothered by any of the following problems? 1. Little interest or pleasure in doing things: not at all 2. Feeling down, depressed, or hopeless: not at all 3. Trouble falling or staying asleep, or sleeping too much: not at all 4. Feeling tired or having little energy: not at all 5. Poor appetite or overeating: not at all 6. Feeling bad about yourself - or that you are a failure or have let yourself or your family down: not at all 7. Trouble concentrating on things, such as reading the newspaper or watching television: not at all 8. Moving or speaking so slowly that other people could have noticed. Or the opposite - being so fidgety or restless that you have been moving around a lot more than usual: not at all 9. Thoughts that you would be better off or of hurting yourself in some way: not at all Total score: 0 Depression Screening Interpretation: Negative Depression Screening Done: Yes 99069 - PHQ-9 Billing: Yes Source: Developed by Drs. Gene Martínez, Anitha Bennett, Leander Springer and colleagues, with an educational thomas from [employer]. Thrive Questionnaire Date Thrive assessed: 09/07/23 I am a: Patient What is your living situation today?: I have a steady place to live Within the past 12 months, did the food you bought not last and you didn't have the money to get more?: Never true Within the past 12 months, did you worry whether your food would run out before you got money to buy more?: Never true Do you have trouble paying for medicines?: No Do you have trouble getting transportation to medical appointments?: No Do you have trouble paying your heating and electricity bill?: No Do you have trouble taking care of your child, family member or friend?: No Do you have trouble with day-to-day activities such as bathing, preparing meals, shopping, managing finances, etc.?: No Are you currently unemployed and looking for a job?: No Are you interested in more education?: No Please select the resources that you would like help with: None Currently or been in a relationship where the following occur: no concerns reported THRIVE Score: 0 AUDIT C Alcohol Use Questionnaire (AUDIT-C) 1. How often do you have a drink containing alcohol?: Never Total Score: 0 Score Reviewed/Action Taken: No GALINA-7 AMB Questionnaire GALINA-7 Date GALINA - 7 assessed: 09/07/23 Feeling nervous, anxious, or on edge: 0 = Not at all Not being able to stop or control worryin = Not at all Worrying too much about different things: 0 = Not at all Trouble relaxin = Not at all Being so restless that it is hard to sit still: 0 = Not at all Becoming easily annoyed or irritable: 0 = Not at all Feeling afraid as if something awful might happen: 0 = Not at all Total GALINA-7 score (0-4 normal; 5-9 mild; 10-14 moderate; 15-21 severe): 0 Source: Developed by Drs. Gene Martínez, Anitha Bennett, Leander Springer and colleagues, with an educational thomas from [employer]. GALINA-7 Assessment Billing GALINA-7 Assessment Tool: GALINA-7 Assessment 40011 Review of Systems Const All systems reviewed & are unremarkable except as noted in HPI and below Eyes Reports no additional complaints, Denies change in vision and Denies other visual disturbances Card Denies chest pain at rest, Denies chest pain with activity, Denies edema, Denies irregular heart rhythm, Denies claudication, Denies dyspnea, Denies dyspnea on exertion, Denies orthopnea, Denies paroxysmal nocturnal dyspnea and Denies slow heart rate Resp Denies cough, Denies dyspnea and Denies dyspnea on exertion GI Denies abdominal pain, Denies change in bowel habits, Denies excessive flatus, Denies nausea and Denies vomiting Denies urinary incontinence, Denies urinary hesitancy and Denies urinary urgency Musc Denies abnormal gait, Denies atrophy, Denies deformity and Denies limited range of motion Skin/Breast Denies bleeding lesions, Denies changing lesions and Denies rash Neuro Denies abnormal gait and Denies lack of coordination Physical exam (Primary Care) Tobacco/Smoking Status: Tobacco use Status Tobacco use date assessed 09/07/23 09/07/23 15:28 Patient Tobacco Use Status Never used Tobacco 09/07/23 15:28 e-Cigarette/Vaping Use Never Used 09/07/23 15:28 PHQ-9: PHQ-9 Score PHQ-9: Total score 0 09/07/23 15:28 Depression Screening Interpretation: Negative Thrive Assessment: Date of Thrive Assessment Date Thrive assessed 09/07/23 09/07/23 15:28 Currently or been in a relationship where the following occur: no concerns reported Const Orientation/consciousness: patient oriented x3 HENMT Head: Yes normal to inspection, Yes normocephalic and Yes atraumatic Ears: external ears normal General nose exam: Normal external nose present and No nasal discharge present Mouth: lip normal Eyes General: appearance normal, both eyes and all related structures Eyelids: Yes eyelids normal Conjunctivae: conjunctivae normal Neck Neck: Yes normal visual inspection and Yes supple Skin General skin exam: no rashes or lesions noted Neuro General: patient oriented x3 and no focal motor deficits Extrem General: Yes full ROM Telehealth Telehealth Location of provider rendering services: practice address Location of patient: address on file Patient Identification confirmed using: Name, : Yes Telehealth method: video Patient verbally consented to treatment: Yes Patient verbally consented to billing insurance company: Yes Patient informed of any privacy concerns related to visit: Yes Minutes spent on Phone/Video with Pt.: 15 Assessment and Plan Assessment & Plan (1) Chronic systolic (congestive) heart failure: Code(s): I50.22 - Chronic systolic (congestive) heart failure Plan: Continue diuretics. Continue Entresto and Farxiga. The goal is to not gain 5 lb in a week. Follow-up with Cardiology. (2) Essential hypertension: Code(s): I10 - Essential (primary) hypertension Plan: Continue Entresto. Blood pressure goal is equal or less than 130/80. (3) GERD (gastroesophageal reflux disease): Code(s): K21.9 - Gastro-esophageal reflux disease without esophagitis Qualifiers: Esophagitis presence: esophagitis presence not specified Qualified Code(s): K21.9 - Gastro-esophageal reflux disease without esophagitis Plan: Continue PPIs. (4) Migraines: Code(s): G43.909 - Migraine, unspecified, not intractable, without status migrainosus Qualifiers: Migraine type: without aura Status migrainosus presence: without status migrainosus Intractability: not intractable Qualified Code(s): G43.009 - Migraine without aura, not intractable, without status migrainosus Plan: Continue sumatriptan as needed. Orders: Orders Vitamin D 25-OH Total Today E55.9 - Vitamin D deficiency, unspecified NT-proBNP Today I50.22 - Chronic systolic (congestive) heart failure IRON PROFILE Today D64.9 - Anemia, unspecified, I50.22 - Chronic systolic (congestive) heart failure Lipid Panel Today E78.5 - Hyperlipidemia, unspecified Comprehensive [place]. Panel Fast Today I50.22 - Chronic systolic (congestive) heart failure Complete Blood Count Auto Diff Today D64.9 - Anemia, unspecified, I50.22 - Chronic systolic (congestive) heart failure Medications: Changed From sumatriptan succinate NO MORE THAN 2 PER 24 HRS 50 mg PO Q2H PRN Migraine Headache To sumatriptan succinate NO MORE THAN 2 PER 24 HRS 50 mg PO Q2H 30 days PRN 9 tabs 5RF Migraine Headache Coding Level of Care Code Tele Est Pt Level 4 (25485) Diagnoses Chronic systolic (congestive) heart failure I50.22 Essential hypertension I10 Gastroesophageal reflux disease, unspecified whether esophagitis present K21.9 Esophagitis presence: esophagitis presence not specified Migraine without aura and without status migrainosus, not intractable G43.009 Migraine type: without aura Status migrainosus presence: without status migrainosus Intractability: not intractable Additional Codes GALINA-7 Assessment Billing - GALINA-7 Assessment Tool: GALINA-7 Assessment 39741 ([id number]) Time Spent (min) 15
== END 2023-09-07 16:19 | disposition home or self-care (01) ==
LOC: HO.HMGH 15:23
PROVIDERS: PCP Internal Medicine; Visit Provider Internal Medicine
DX: I11.0 Hypertensive heart disease with heart failure (principal); I50.22 Chronic systolic (congestive) heart failure; K21.9 Gastro-esophageal reflux disease without esophagitis; G43.009 Migraine without aura, not intractable, without status migrainosus
CPT/HCPCS: 99214

== ENCOUNTER → 2023-09-20 23:59 | Outpatient (BNV) | payer OTHER, SELFPAY ==
--- NOTE | 2023-09-22 12:33 | A.OFFVIS_ITS ---
Intake Intake Visit Reasons: Remote ICD Check- [employer] Allergies gabapentin Allergy (Intermediate, Verified 09/07/23 15:41) memory loss ibuprofen Allergy (Intermediate, Verified 09/07/23 15:41) abdominal pain celecoxib [Celebrex] Allergy (Unknown, Verified 09/07/23 15:41) Unknown [facility] Medical History (Updated 09/07/23 @ 15:48 by Char Molina MD) CHF exacerbation Acute on chronic systolic and diastolic heart failure, NYHA class 3 Biventricular ICD (implantable cardioverter-defibrillator) in place Pacemaker LBBB (left bundle branch block) Cardiomyopathy Mild recurrent major depression Moderate asthma Pneumonia Hospital discharge follow-up GERD (gastroesophageal reflux disease) Migraines Iron deficiency anemia HTN (hypertension) Surgical History S/P cardiac cath History of gastric bypass History of hip replacement, total History of hip replacement Family History Father CAD (coronary artery disease) Mother CAD (coronary artery disease) Son No problems noted. Daughter No problems noted. Son No problems noted. Social History Household Members: Spouse and Children Housing: House Do you presently have visiting nurse or other home services: No Alcohol intake: unknown Patient Tobacco Use Status: Never used Tobacco e-Cigarette/Vaping Use: Never Used Second Hand Smoke Exposure: No service: No Current occupational status: disabled Cognitive needs: No Hearing needs: No Vision needs: Yes Office Procedures Cardiac Device Check Cardiac Device Check Details: Date of service 09/20/2023; Battery life >7 years; normal lead parameters; no treated VT/VF; effective [employer] >99%; normal ICD function. [id number] Cardiac Interrogation, implant defibrillator w/interim Procedure code (CPT) selection complete Assessment & Plan Assessment & Plan (1) Chronic systolic (congestive) heart failure: Code(s): I50.22 - Chronic systolic (congestive) heart failure Plan x Coding Level of Care Code Procedure Only Diagnoses Chronic systolic (congestive) heart failure I50.22 CPT Codes Cardiac Device Check - Cardiac Device 13: [id number] Cardiac Interrogation, implant defibrillator w/interim ([id number])
== END ==
PROVIDERS: PCP Internal Medicine; Visit Provider Internal Medicine
DX: I50.22 Chronic systolic (congestive) heart failure (principal); Z95.810 Presence of automatic (implantable) cardiac defibrillator
CPT/HCPCS: 93295

== ENCOUNTER → 2023-09-20 23:59 | Outpatient (BNV) | payer OTHER, SELFPAY ==
--- NOTE | 2023-09-22 12:31 | A.OFFVIS_ITS ---
Intake Intake Visit Reasons: Remote HF Monitoring- [employer] Allergies gabapentin Allergy (Intermediate, Verified 09/07/23 15:41) memory loss ibuprofen Allergy (Intermediate, Verified 09/07/23 15:41) abdominal pain celecoxib [Celebrex] Allergy (Unknown, Verified 09/07/23 15:41) Unknown [facility] Medical History (Updated 09/07/23 @ 15:48 by Char Molina MD) CHF exacerbation Acute on chronic systolic and diastolic heart failure, NYHA class 3 Biventricular ICD (implantable cardioverter-defibrillator) in place Pacemaker LBBB (left bundle branch block) Cardiomyopathy Mild recurrent major depression Moderate asthma Pneumonia Hospital discharge follow-up GERD (gastroesophageal reflux disease) Migraines Iron deficiency anemia HTN (hypertension) Surgical History S/P cardiac cath History of gastric bypass History of hip replacement, total History of hip replacement Family History Father CAD (coronary artery disease) Mother CAD (coronary artery disease) Son No problems noted. Daughter No problems noted. Son No problems noted. Social History Household Members: Spouse and Children Housing: House Do you presently have visiting nurse or other home services: No Alcohol intake: unknown Patient Tobacco Use Status: Never used Tobacco e-Cigarette/Vaping Use: Never Used Second Hand Smoke Exposure: No service: No Current occupational status: disabled Cognitive needs: No Hearing needs: No Vision needs: Yes Office Procedures Cardiac Device Check Cardiac Device Check Details: Date of service- 09/20/2023; based on impedance data and physiological variables, there is no evidence of worsening congestive heart failure. [id number] Cardiac Device Interrogation, cardio physiologic monitor Procedure code (CPT) selection complete Assessment & Plan Assessment & Plan (1) Chronic systolic (congestive) heart failure: Code(s): I50.22 - Chronic systolic (congestive) heart failure Plan x Coding Level of Care Code Procedure Only Diagnoses Chronic systolic (congestive) heart failure I50.22 CPT Codes Cardiac Device Check - Cardiac Device 15: [id number] Cardiac Device Interrogation, cardio physiologic monitor ([id number])
== END ==
PROVIDERS: PCP Internal Medicine; Visit Provider Internal Medicine
DX: I50.22 Chronic systolic (congestive) heart failure (principal); Z95.810 Presence of automatic (implantable) cardiac defibrillator
CPT/HCPCS: 93297

== ENCOUNTER → 2023-10-21 23:59 | Outpatient (BNV) | payer OTHER, SELFPAY ==
--- NOTE | 2023-10-22 12:28 | MHC.OFFVIS ---
Intake Intake Visit Reasons: Remote HF Monitoring- [employer] Allergies gabapentin Allergy (Intermediate, Verified 09/07/23 15:41) memory loss ibuprofen Allergy (Intermediate, Verified 09/07/23 15:41) abdominal pain celecoxib [Celebrex] Allergy (Unknown, Verified 09/07/23 15:41) Unknown [facility] Medical History (Updated 09/07/23 @ 15:48 by Char Molina MD) CHF exacerbation Acute on chronic systolic and diastolic heart failure, NYHA class 3 Biventricular ICD (implantable cardioverter-defibrillator) in place Pacemaker LBBB (left bundle branch block) Cardiomyopathy Mild recurrent major depression Moderate asthma Pneumonia Hospital discharge follow-up GERD (gastroesophageal reflux disease) Migraines Iron deficiency anemia HTN (hypertension) Surgical History S/P cardiac cath History of gastric bypass History of hip replacement, total History of hip replacement Family History Father CAD (coronary artery disease) Mother CAD (coronary artery disease) Son No problems noted. Daughter No problems noted. Son No problems noted. Social History Household Members: Spouse and Children Housing: House Do you presently have visiting nurse or other home services: No Alcohol intake: unknown Patient Tobacco Use Status: Never used Tobacco e-Cigarette/Vaping Use: Never Used Second Hand Smoke Exposure: No service: No Current occupational status: disabled Cognitive needs: No Hearing needs: No Vision needs: Yes Office Procedures Cardiac Device Check Cardiac Device Check Details: Date of service- 10/21/2023; based on impedance data and physiological variables, there is possible optivol fluid accumulation 12 dec 2023 to 17 october 2023. [id number] Cardiac Device Interrogation, cardio physiologic monitor Procedure code (CPT) selection complete Assessment & Plan Assessment & Plan (1) Chronic systolic (congestive) heart failure: Code(s): I50.22 - Chronic systolic (congestive) heart failure Plan x Coding Level of Care Code Procedure Only Diagnoses Chronic systolic (congestive) heart failure I50.22 CPT Codes Cardiac Device Check - Cardiac Device 15: [id number] Cardiac Device Interrogation, cardio physiologic monitor ([id number])
== END ==
PROVIDERS: PCP Internal Medicine; Visit Provider Internal Medicine
DX: I50.22 Chronic systolic (congestive) heart failure (principal)
CPT/HCPCS: 93297

== ENCOUNTER → 2023-11-21 23:59 | Outpatient (BNV) | payer OTHER, SELFPAY ==
--- NOTE | 2023-11-28 12:08 | MHC.OFFVIS ---
Intake Visit Reasons: Remote HF monitoring- [employer] Allergies gabapentin Allergy (Intermediate, Verified 09/07/23 15:41) memory loss ibuprofen Allergy (Intermediate, Verified 09/07/23 15:41) abdominal pain celecoxib [Celebrex] Allergy (Unknown, Verified 09/07/23 15:41) Unknown [facility] Medical History (Updated 09/07/23 @ 15:48 by Char Molina MD) CHF exacerbation Acute on chronic systolic and diastolic heart failure, NYHA class 3 Biventricular ICD (implantable cardioverter-defibrillator) in place Pacemaker LBBB (left bundle branch block) Cardiomyopathy Mild recurrent major depression Moderate asthma Pneumonia Hospital discharge follow-up GERD (gastroesophageal reflux disease) Migraines Iron deficiency anemia HTN (hypertension) Surgical History S/P cardiac cath History of gastric bypass History of hip replacement, total History of hip replacement Family History Father CAD (coronary artery disease) Mother CAD (coronary artery disease) Son No problems noted. Daughter No problems noted. Son No problems noted. Social History Household Members: Spouse and Children Housing: House Do you presently have visiting nurse or other home services: No Alcohol intake: unknown Patient Tobacco Use Status: Never used Tobacco e-Cigarette/Vaping Use: Never Used Second Hand Smoke Exposure: No service: No Current occupational status: disabled Cognitive needs: No Hearing needs: No Vision needs: Yes Office Procedures Cardiac Device Check Cardiac Device Check Details: Date of service- 11/21/2023; based on impedance data and physiological variables, there is no evidence of worsening congestive heart failure. [id number] Cardiac Device Interrogation, cardio physiologic monitor Procedure code (CPT) selection complete Assessment & Plan Assessment & Plan (1) Chronic systolic (congestive) heart failure: Code(s): I50.22 - Chronic systolic (congestive) heart failure Category: Medical Plan x
== END ==
PROVIDERS: PCP Internal Medicine; Visit Provider Internal Medicine
DX: I50.22 Chronic systolic (congestive) heart failure (principal); Z95.810 Presence of automatic (implantable) cardiac defibrillator
CPT/HCPCS: 93297

== ENCOUNTER → 2023-11-21 23:59 | Outpatient (BNV) | payer OTHER, SELFPAY ==
--- NOTE | 2023-11-28 12:25 | MHC.OFFVIS ---
Intake Visit Reasons: Remote device check- [employer] Allergies gabapentin Allergy (Intermediate, Verified 09/07/23 15:41) memory loss ibuprofen Allergy (Intermediate, Verified 09/07/23 15:41) abdominal pain celecoxib [Celebrex] Allergy (Unknown, Verified 09/07/23 15:41) Unknown [facility] Medical History (Updated 09/07/23 @ 15:48 by Char Molina MD) CHF exacerbation Acute on chronic systolic and diastolic heart failure, NYHA class 3 Biventricular ICD (implantable cardioverter-defibrillator) in place Pacemaker LBBB (left bundle branch block) Cardiomyopathy Mild recurrent major depression Moderate asthma Pneumonia Hospital discharge follow-up GERD (gastroesophageal reflux disease) Migraines Iron deficiency anemia HTN (hypertension) Surgical History S/P cardiac cath History of gastric bypass History of hip replacement, total History of hip replacement Family History Father CAD (coronary artery disease) Mother CAD (coronary artery disease) Son No problems noted. Daughter No problems noted. Son No problems noted. Social History Household Members: Spouse and Children Housing: House Do you presently have visiting nurse or other home services: No Alcohol intake: unknown Patient Tobacco Use Status: Never used Tobacco e-Cigarette/Vaping Use: Never Used Second Hand Smoke Exposure: No service: No Current occupational status: disabled Cognitive needs: No Hearing needs: No Vision needs: Yes Office Procedures Cardiac Device Check Cardiac Device Check Details: Date of service- 11/21/2023 ; Battery life >7 years; normal lead parameters; adequate Biv pacing; no significant arrhythmias. Overall normal device function. [id number] Cardiac Interrogation, implant defibrillator w/interim Procedure code (CPT) selection complete Assessment & Plan Assessment & Plan (1) Chronic systolic (congestive) heart failure: Code(s): I50.22 - Chronic systolic (congestive) heart failure Category: Medical Plan x
== END ==
PROVIDERS: PCP Internal Medicine; Visit Provider Internal Medicine
DX: I50.22 Chronic systolic (congestive) heart failure (principal); Z95.810 Presence of automatic (implantable) cardiac defibrillator
CPT/HCPCS: 93295

== ENCOUNTER → 2023-12-21 23:59 | Outpatient (BNV) | payer OTHER, SELFPAY ==
--- NOTE | 2023-12-23 15:59 | MHC.OFFVIS ---
Intake Visit Reasons: Remote HF monitoring- [employer] Allergies gabapentin Allergy (Intermediate, Verified 09/07/23 15:41) memory loss ibuprofen Allergy (Intermediate, Verified 09/07/23 15:41) abdominal pain celecoxib [Celebrex] Allergy (Unknown, Verified 09/07/23 15:41) Unknown [facility] Medical History (Updated 09/07/23 @ 15:48 by Char Molina MD) CHF exacerbation Acute on chronic systolic and diastolic heart failure, NYHA class 3 Biventricular ICD (implantable cardioverter-defibrillator) in place Pacemaker LBBB (left bundle branch block) Cardiomyopathy Mild recurrent major depression Moderate asthma Pneumonia Hospital discharge follow-up GERD (gastroesophageal reflux disease) Migraines Iron deficiency anemia HTN (hypertension) Surgical History S/P cardiac cath History of gastric bypass History of hip replacement, total History of hip replacement Family History Father CAD (coronary artery disease) Mother CAD (coronary artery disease) Son No problems noted. Daughter No problems noted. Son No problems noted. Social History Household Members: Spouse and Children Housing: House Do you presently have visiting nurse or other home services: No Alcohol intake: unknown Patient Tobacco Use Status: Never used Tobacco e-Cigarette/Vaping Use: Never Used Second Hand Smoke Exposure: No service: No Current occupational status: disabled Cognitive needs: No Hearing needs: No Vision needs: Yes Office Procedures Cardiac Device Check Cardiac Device Check Details: Date of service- 12/21/2023; based on impedance data and physiological variables, there is possible OptiVol fluid accumulation from 13 of December to ongoing. [id number] Cardiac Device Interrogation, cardio physiologic monitor Procedure code (CPT) selection complete Assessment & Plan Assessment & Plan (1) Chronic systolic (congestive) heart failure: Code(s): I50.22 - Chronic systolic (congestive) heart failure Category: Medical Plan x Coding Level of Care Code Procedure Only Diagnoses Chronic systolic (congestive) heart failure I50.22 CPT Codes Cardiac Device Check - Cardiac Device 15: [id number] Cardiac Device Interrogation, cardio physiologic monitor ([id number])
== END ==
PROVIDERS: PCP Internal Medicine; Visit Provider Internal Medicine
DX: I50.22 Chronic systolic (congestive) heart failure (principal); Z95.810 Presence of automatic (implantable) cardiac defibrillator
CPT/HCPCS: 93297

== ENCOUNTER 2023-12-22 12:41 | Outpatient (AMB) | payer OTHER, SELFPAY ==
[2023-12-22 12:42] VITALS: BP 100/66; PULSE 75; BMI 40.5
--- NOTE | 2023-12-22 12:42 | A.OFFVIS_ITS ---
Vital Signs 12/22/23 12:42 Height 4 ft 11 in Weight 200 lb 9.93 oz BMI 40.5 BP 100/66 Blood Pressure Location Lt brachial Position Sitting Pulse 75 Intake Visit Reasons: 6 mth f/up Intake Note: 6 month follow-up feeling good Maintenance Coordinator Required: No Allergies gabapentin Allergy (Intermediate, Verified 09/07/23 15:41) memory loss ibuprofen Allergy (Intermediate, Verified 09/07/23 15:41) abdominal pain celecoxib [Celebrex] Allergy (Unknown, Verified 09/07/23 15:41) Unknown Medication List - Last Reconciled 12/22/23 by Luis Erickson MD bisoprolol fumarate 2.5 mg (1/2 x 5 mg) PO DAILY 90 days blood pressure monitor As directed dapagliflozin propanediol (Farxiga) 10 mg PO QAM furosemide (Lasix) 40 mg PO BID@0900,1500 30 days omeprazole 40 mg PO BID sacubitril-valsartan 24-26 mg (Entresto) 1 tab PO BID 90 days spironolactone 25 mg PO DAILY sumatriptan succinate 50 mg PO Q2H PRN 30 days tramadol 50 mg PO Q8H 30 days HPI Comments Details: Montserrat returns for follow-up regarding cardiomyopathy. She has a history of nonischemic cardiomyopathy. She also has BiVICD in place. In 2022, admitted for chest pain symptoms. Troponins were significantly elevated. Due to this, she had another cardiac catheterization that however did not show any sig nificant CAD. Etiology for the troponin elevation was not very clear. Overall, she states she is feeling good. Shortness of breath is under control. [facility] Medical History (Updated 09/07/23 @ 15:48 by Char Molina MD) CHF exacerbation Acute on chronic systolic and diastolic heart failure, NYHA class 3 Biventricular ICD (implantable cardioverter-defibrillator) in place Pacemaker LBBB (left bundle branch block) Cardiomyopathy Mild recurrent major depression Moderate asthma Pneumonia Hospital discharge follow-up GERD (gastroesophageal reflux disease) Migraines Iron deficiency anemia HTN (hypertension) Surgical History S/P cardiac cath History of gastric bypass History of hip replacement, total History of hip replacement Family History Father CAD (coronary artery disease) Mother CAD (coronary artery disease) Son No problems noted. Daughter No problems noted. Son No problems noted. Social History Household Members: Spouse and Children Housing: House Do you presently have visiting nurse or other home services: No Alcohol intake: unknown Patient Tobacco Use Status: Never used Tobacco e-Cigarette/Vaping Use: Never Used Second Hand Smoke Exposure: No service: No Current occupational status: disabled Cognitive needs: No Hearing needs: No Vision needs: Yes Review of Systems Const Denies chills, Denies fatigue, Denies fever(s), Denies frequent falls, Denies weakness, Denies weight gain and Denies weight loss ENT Denies dizziness Card Denies chest pain, Denies leg edema, Denies lightheadedness, Denies palpitations, Denies dyspnea, Denies dyspnea on exertion, Denies orthopnea and Denies other (loss of consciousness) Resp Denies cough, Denies dyspnea and Denies dyspnea on exertion GI Denies hematochezia and Denies change in stool character Musc Denies abnormal gait, Denies muscle weakness, Denies numbness, Denies radiating pain into limb and Denies tingling Neuro Denies abnormal gait, Denies dizziness, Denies frequent falls, Denies numbness, Denies tingling and Denies weakness Endo Denies fatigue and Denies palpitations Physical Exam Vital Signs: Last Vital Signs Pulse 75 12/22/23 12:42 BP 100/66 12/22/23 12:42 BMI result Body Mass Index 40.5 Const General: comfortable and no acute distress Orientation/consciousness: patient oriented x3 HEENT Other: Unremarkable Head: Yes normal to inspection Neck Neck: Yes normal visual inspection Chest Chest palpation & inspection: normal inspection of the chest Resp Auscultation: clear to auscultation bilaterally Cardio Palpation: normal PMI Heart sounds: S1 normal heart sound present, S2 normal heart sound present, no gallops, no murmurs and no rubs GI Palpation (GI): Soft to palpation Back/Spine/Pelvis Other: unremarkable Skin General skin exam: no rashes or lesions noted Neuro General: patient oriented x3 Extrem General: Yes normal to inspection Psych Mental Status: mental status grossly normal Assessment & Plan Assessment & Plan (1) Cardiomyopathy: Code(s): I42.9 - Cardiomyopathy, unspecified Category: Medical (2) Biventricular ICD (implantable cardioverter-defibrillator) in place: Code(s): Z95.810 - Presence of automatic (implantable) cardiac defibrillator Category: Medical Plan In the most recent echocardiogram from 2022, LVEF 16%. [id number] mitral regurgitation. Dilated LV cavity. Cardiac catheterization shows normal coronary arteries. Etiology could be left bundle-branch related cardiomyopathy. Clinically, no overt evidence of congestive heart failure. Advised lifestyle changes including dietary restrictions, cutting back on salt intake. Continue current medical regimen including bisoprolol, Entresto, Farxiga, spironolactone. Lasix listed as b.i.d. per she states that she takes only once a day as she forgets. Check labs. Ordered. ICD can be monitored remotely. Follow-up in 6 months with ICD check. Orders: Orders Basic Metabolic Panel Today I50.22 - Chronic systolic (congestive) heart f ailure B Type Natriuretic Peptide Today I50.22 - Chronic systolic (congestive) heart failure CA echo transthoracic complete 6 Months I50.22 - Chronic systolic (congestive) heart failure Coding Level of Care Code Est Pt Level 4 (28241) Diagnoses Cardiomyopathy I42.9 Biventricular ICD (implantable cardioverter-defibrillator) in place Z95.810
== END 2023-12-22 13:10 | disposition home or self-care (01) ==
PROVIDERS: PCP Internal Medicine; Visit Provider Internal Medicine
DX: I42.9 Cardiomyopathy, unspecified (principal); Z95.810 Presence of automatic (implantable) cardiac defibrillator
CPT/HCPCS: 99214

== ENCOUNTER → 2023-12-22 12:41 | Outpatient (BNVA) | payer OTHER, SELFPAY | PROVIDERS: PCP Internal Medicine; Visit Provider Internal Medicine | DX: I11.0 Hypertensive heart disease with heart failure (principal); I50.22 Chronic systolic (congestive) heart failure; I42.9 Cardiomyopathy, unspecified; Z95.810 Presence of automatic (implantable) cardiac defibrillator; Z98.890 Other specified postprocedural states | CPT/HCPCS: 99212 ==

== ENCOUNTER → 2024-01-21 23:59 | Outpatient (BNV) | payer OTHER, SELFPAY ==
--- NOTE | 2024-01-26 21:41 | MHC.OFFVIS ---
Intake Visit Reasons: Remote HF monitoring- [employer] Allergies gabapentin Allergy (Intermediate, Verified 09/07/23 15:41) memory loss ibuprofen Allergy (Intermediate, Verified 09/07/23 15:41) abdominal pain celecoxib [Celebrex] Allergy (Unknown, Verified 09/07/23 15:41) Unknown [facility] Medical History (Updated 09/07/23 @ 15:48 by Char Molina MD) CHF exacerbation Acute on chronic systolic and diastolic heart failure, NYHA class 3 Biventricular ICD (implantable cardioverter-defibrillator) in place Pacemaker LBBB (left bundle branch block) Cardiomyopathy Mild recurrent major depression Moderate asthma Pneumonia Hospital discharge follow-up GERD (gastroesophageal reflux disease) Migraines Iron deficiency anemia HTN (hypertension) Surgical History S/P cardiac cath History of gastric bypass History of hip replacement, total History of hip replacement Family History Father CAD (coronary artery disease) Mother CAD (coronary artery disease) Son No problems noted. Daughter No problems noted. Son No problems noted. Social History Household Members: Spouse and Children Housing: House Do you presently have visiting nurse or other home services: No Alcohol intake: unknown Patient Tobacco Use Status: Never used Tobacco e-Cigarette/Vaping Use: Never Used Second Hand Smoke Exposure: No service: No Current occupational status: disabled Cognitive needs: No Hearing needs: No Vision needs: Yes Office Procedures Cardiac Device Check Cardiac Device Check Details: Date of service- 01/21/2024; based on impedance data and physiological variables, there is no evidence of worsening congestive heart failure. [id number] Cardiac Device Interrogation, cardio physiologic monitor Procedure code (CPT) selection complete Assessment & Plan Assessment & Plan (1) Chronic systolic (congestive) heart failure: Code(s): I50.22 - Chronic systolic (congestive) heart failure Category: Medical Plan x Coding Level of Care Code Procedure Only Diagnoses Chronic systolic (congestive) heart failure I50.22 CPT Codes Cardiac Device Check - Cardiac Device 15: [id number] Cardiac Device Interrogation, cardio physiologic monitor ([id number])
== END ==
PROVIDERS: PCP Internal Medicine; Visit Provider Internal Medicine
DX: I50.22 Chronic systolic (congestive) heart failure (principal); Z95.810 Presence of automatic (implantable) cardiac defibrillator
CPT/HCPCS: 93297

== ENCOUNTER → 2024-02-21 23:59 | Outpatient (BNV) | payer OTHER, SELFPAY ==
--- NOTE | 2024-02-29 12:36 | A.OFFVIS_ITS ---
Intake Visit Reasons: Remote HF monitoring- [employer] Allergies gabapentin Allergy (Intermediate, Verified 09/07/23 15:41) memory loss ibuprofen Allergy (Intermediate, Verified 09/07/23 15:41) abdominal pain celecoxib [Celebrex] Allergy (Unknown, Verified 09/07/23 15:41) Unknown [facility] Medical History (Updated 09/07/23 @ 15:48 by Char Molina MD) CHF exacerbation Acute on chronic systolic and diastolic heart failure, NYHA class 3 Biventricular ICD (implantable cardioverter-defibrillator) in place Pacemaker LBBB (left bundle branch block) Cardiomyopathy Mild recurrent major depression Moderate asthma Pneumonia Hospital discharge follow-up GERD (gastroesophageal reflux disease) Migraines Iron deficiency anemia HTN (hypertension) Surgical History S/P cardiac cath History of gastric bypass History of hip replacement, total History of hip replacement Family History Father CAD (coronary artery disease) Mother CAD (coronary artery disease) Son No problems noted. Daughter No problems noted. Son No problems noted. Social History Household Members: Spouse and Children Housing: House Do you presently have visiting nurse or other home services: No Alcohol intake: unknown Patient Tobacco Use Status: Never used Tobacco e-Cigarette/Vaping Use: Never Used Second Hand Smoke Exposure: No service: No Current occupational status: disabled Cognitive needs: No Hearing needs: No Vision needs: Yes Office Procedures Cardiac Device Check Cardiac Device Check Details: Date of service- 02/21/2024; based on impedance data and physiological variables, there is no evidence of worsening congestive heart failure. [id number] Cardiac Device Interrogation, cardio physiologic monitor Procedure code (CPT) selection complete Assessment & Plan Assessment & Plan (1) Chronic systolic (congestive) heart failure: Code(s): I50.22 - Chronic systolic (congestive) heart failure Category: Medical Plan x Coding Level of Care Code Procedure Only Diagnoses Chronic systolic (congestive) heart failure I50.22 CPT Codes Cardiac Device Check - Cardiac Device 15: [id number] Cardiac Device Interrogation, cardio physiologic monitor ([id number])
== END ==
PROVIDERS: PCP Internal Medicine; Visit Provider Internal Medicine
DX: I50.22 Chronic systolic (congestive) heart failure (principal); Z95.810 Presence of automatic (implantable) cardiac defibrillator
CPT/HCPCS: 93297

== ENCOUNTER → 2024-03-24 23:59 | Outpatient (BNV) | payer OTHER, SELFPAY ==
--- NOTE | 2024-03-30 12:47 | A.OFFVIS_ITS ---
Intake Visit Reasons: Remote HF monitoring- [employer] Allergies gabapentin Allergy (Intermediate, Verified 09/07/23 15:41) memory loss ibuprofen Allergy (Intermediate, Verified 09/07/23 15:41) abdominal pain celecoxib [Celebrex] Allergy (Unknown, Verified 09/07/23 15:41) Unknown [facility] Medical History (Updated 09/07/23 @ 15:48 by Char Molina MD) CHF exacerbation Acute on chronic systolic and diastolic heart failure, NYHA class 3 Biventricular ICD (implantable cardioverter-defibrillator) in place Pacemaker LBBB (left bundle branch block) Cardiomyopathy Mild recurrent major depression Moderate asthma Pneumonia Hospital discharge follow-up GERD (gastroesophageal reflux disease) Migraines Iron deficiency anemia HTN (hypertension) Surgical History S/P cardiac cath History of gastric bypass History of hip replacement, total History of hip replacement Family History Father CAD (coronary artery disease) Mother CAD (coronary artery disease) Son No problems noted. Daughter No problems noted. Son No problems noted. Social History Household Members: Spouse and Children Housing: House Do you presently have visiting nurse or other home services: No Alcohol intake: unknown Patient Tobacco Use Status: Never used Tobacco e-Cigarette/Vaping Use: Never Used Second Hand Smoke Exposure: No service: No Current occupational status: disabled Cognitive needs: No Hearing needs: No Vision needs: Yes Office Procedures Cardiac Device Check Cardiac Device Check Details: Date of service- 03/24/2024; based on impedance data and physiological variables, there is possible OptiVol fluid accumulation from 13 of March to ongoing. [id number] Cardiac Device Interrogation, cardio physiologic monitor Procedure code (CPT) selection complete Assessment & Plan Assessment & Plan (1) Chronic systolic (congestive) heart failure: Code(s): I50.22 - Chronic systolic (congestive) heart failure Category: Medical Plan x Coding Level of Care Code Procedure Only Diagnoses Chronic systolic (congestive) heart failure I50.22 CPT Codes Cardiac Device Check - Cardiac Device 15: [id number] Cardiac Device Interrogation, cardio physiologic monitor ([id number])
== END ==
PROVIDERS: PCP Internal Medicine; Visit Provider Internal Medicine
DX: I50.22 Chronic systolic (congestive) heart failure (principal); Z95.810 Presence of automatic (implantable) cardiac defibrillator
CPT/HCPCS: 93297

== ENCOUNTER 2024-04-11 14:30 | Outpatient (AMB) | payer OTHER, SELFPAY ==
[2024-04-11 14:38] VITALS: BP 138/70; BMI 41.8
--- NOTE | 2024-04-11 14:38 | A.OFFPC_ITS ---
Vital Signs 04/11/24 14:38 Height 4 ft 11 in Weight 207 lb BMI 41.8 BP 138/70 Blood Pressure Location Lt brachial Position Sitting Intake Visit Reasons: pe Intake Note: Patient here for a physical exam Mandrel Cleaner Required: No Accompanied by: Self / Same As Patient Allergies gabapentin Allergy (Intermediate, Verified 04/11/24 14:58) memory loss ibuprofen Allergy (Intermediate, Verified 04/11/24 14:58) abdominal pain celecoxib [Celebrex] Allergy (Unknown, Verified 04/11/24 14:58) Unknown Medication List - Last Reconciled 04/11/24 by Char Molina MD bisoprolol fumarate 2.5 mg (1/2 x 5 mg) PO DAILY 90 days blood pressure monitor As directed dapagliflozin propanediol (Farxiga) 10 mg PO QAM furosemide (Lasix) 40 mg PO BID@0900,1500 30 days omeprazole 40 mg PO DAILY 90 days sacubitril-valsartan 24-26 mg (Entresto) 1 tab PO BID 90 days spironolactone 25 mg PO DAILY sumatriptan succinate 50 mg PO Q2H PRN 30 days tramadol 50 mg PO Q8H 30 days Tobacco use date assessed: 09/07/23 Dental Screening Dental Screen Date: 09/07/23 HPI HPI Comments History of Present Illness Details This is a 58-year-old female with mild recurrent major depression, morbid obesity, chronic systolic congestive heart failure and non-STEMI in 2022 that comes for her physical exam. She complains of insomnia and depression and I will start her on trazodone at bedtime. She is morbidly obese with a BMI of 41.8 and does have cardiovascular risk factors therefore I will start her on Wegovy. She does have history of gastric bypass few years ago. Last colonoscopy was about a year ago at [facility] as per patient and he was normal. Chronic systolic congestive heart failure is follow by cardiology and has not gain 5 lb in a week. Has appointment for echocardiogram this year. Had an NSTEMI in 2022 and labs will be order to check her LDL to be less than 70. Denies any chest pain or shortness on breath. Mammogram will also be ordered. Will be referred to OBGYN for Pap smear. [facility] Medical History (Updated 04/11/24 @ 16:52 by Char Molina MD) Non-ST elevated myocardial infarction (non-STEMI) CHF exacerbation Acute on chronic systolic and diastolic heart failure, NYHA class 3 Biventricular ICD (implantable cardioverter-defibrillator) in place Pacemaker LBBB (left bundle branch block) Cardiomyopathy Mild recurrent major depression Moderate asthma Pneumonia Hospital discharge follow-up GERD (gastroesophageal reflux disease) Migraines Iron deficiency anemia HTN (hypertension) Surgical History S/P cardiac cath History of gastric bypass History of hip replacement, total History of hip replacement Family History Father CAD (coronary artery disease) Mother CAD (coronary artery disease) Son No problems noted. Daughter No problems noted. Son No problems noted. Social History Household Members: Spouse and Children Housing: House Do you presently have visiting nurse or other home services: No Alcohol intake: unknown Patient Tobacco Use Status: Never used Tobacco e-Cigarette/Vaping Use: Never Used Second Hand Smoke Exposure: No service: No Current occupational status: disabled Cognitive needs: No Hearing needs: No Vision needs: Yes Questionnaire PHQ-9 Over the last 2 weeks, how often have you been bothered by any of the following problems? 1. Little interest or pleasure in doing things: not at all 2. Feeling down, depressed, or hopeless: not at all 3. Trouble falling or staying asleep, or sleeping too much: nearly every day 4. Feeling tired or having little energy: several days 5. Poor appetite or overeating: several days 6. Feeling bad about yourself - or that you are a failure or have let yourself or your family down: not at all 7. Trouble concentrating on things, such as reading the newspaper or watching television: not at all 8. Moving or speaking so slowly that other people could have noticed. Or the opposite - being so fidgety or restless that you have been moving around a lot more than usual: not at all 9. Thoughts that you would be better off or of hurting yourself in some way: not at all Total score: 5 Depression Screening Interpretation: Positive Depression Screening Follow-up: Existing condition and Follow-up Visit Requested Depression Screening Done: Yes 59479 - PHQ-9 Billing: Yes Source: Developed by Drs. Gene Martínez, Anitha Bennett, Leander Springer and colleagues, with an educational thomas from [employer]. Thrive Questionnaire Date Thrive assessed: 04/11/24 I am a: Patient What is your living situation today?: I have a steady place to live Within the past 12 months, did the food you bought not last and you didn't have the money to get more?: Often true Within the past 12 months, did you worry whether your food would run out before you got money to buy more?: Never true Do you have trouble paying for medicines?: No Do you have trouble getting transportation to medical appointments?: No Do you have trouble paying your heating and electricity bill?: No Do you have trouble taking care of your child, family member or friend?: No Do you have trouble with day-to-day activities such as bathing, preparing meals, shopping, managing finances, etc.?: No Are you currently unemployed and looking for a job?: Yes Are you interested in more education?: No Please select the resources that you would like help with: Housing/Half-Way Currently or been in a relationship where the following occur: No concerns reported THRIVE Score: 1 AUDIT C Alcohol Use Questionnaire (AUDIT-C) 1. How often do you have a drink containing alcohol?: Never Total Score: 0 Score Reviewed/Action Taken: No AGLINA-7 AMB Questionnaire GALINA-7 Date GALINA - 7 assessed: 04/11/24 Feeling nervous, anxious, or on edge: 1 = Several days Not being able to stop or control worryin = Not at all Worrying too much about different things: 1 = Several days Trouble relaxin = Several days Being so restless that it is hard to sit still: 0 = Not at all Becoming easily annoyed or irritable: 0 = Not at all Feeling afraid as if something awful might happen: 0 = Not at all Total GALINA-7 score (0-4 normal; 5-9 mild; 10-14 moderate; 15-21 severe): 3 Source: Developed by Anitha Walker, Leander Springer and colleagues, with an educational thomas from [employer]. GALINA-7 Assessment Billing GALINA-7 Assessment Tool: GALINA-7 Assessment 75106 Review of Systems Const All systems reviewed & are unremarkable except as noted in HPI and below Card Denies chest pain at rest, Denies chest pain with activity, Denies edema, Denies irregular heart rhythm, Denies claudication, Denies dyspnea, Denies dyspnea on exertion, Denies orthopnea, Denies paroxysmal nocturnal dyspnea and Denies slow heart rate Resp Denies cough, Denies dyspnea and Denies dyspnea on exertion GI Denies abdominal pain, Denies change in bowel habits, Denies excessive flatus, Denies nausea and Denies vomiting Denies urinary incontinence, Denies urinary hesitancy and Denies urinary urgency Musc Denies atrophy, Denies deformity and Denies limited range of motion Skin/Breast Denies bleeding lesions, Denies changing lesions and Denies rash Psych Reports abnormal sleep pattern, Reports anxiety and Reports depression Physical exam (Primary Care) Vital Signs: Last Vital Signs BP 138/70 04/11/24 14:38 BMI result Body Mass Index 41.8 BMI Assessment/Plan discussion: High BMI High, discussed plan: lifestyle, weight reduction, dietary and physical activity Tobacco/Smoking Status: Tobacco use Status Tobacco use date assessed 09/07/23 04/11/24 14:41 Patient Tobacco Use Status Never used Tobacco 04/11/24 14:41 e-Cigarette/Vaping Use Never Used 04/11/24 14:41 PHQ-9: PHQ-9 Score PHQ-9: Total score 5 04/11/24 15:03 Depression Screening Interpretation: Positive Depression Screening Follow-up: Existing condition and Follow-up Visit Requested Thrive Assessment: Date of Thrive Assessment Date Thrive assessed 04/11/24 04/11/24 14:46 Currently or been in a relationship where the following occur: No concerns reported HENMT Head: Yes normal to inspection, Yes normocephalic and Yes atraumatic Ears: external ears normal Eyes General: appearance normal, both eyes and all related structures Eyelids: Yes eyelids normal Conjunctivae: conjunctivae normal Neck Neck: Yes normal visual inspection and Yes supple Resp Effort & Inspection: normal respiratory effort Auscultation: clear to auscultation bilaterally Cardio Jugular venous distension: no JVD Rate: regular rate Rhythm: regular rhythm Heart sounds: S1 normal heart sound present and S2 normal heart sound present GI Inspection: Yes normal to inspection Palpation (GI): Soft to palpation and nontender Auscultation: normal bowel sounds Skin General skin exam: no rashes or lesions noted Neuro General: no focal motor deficits Extrem General: Yes full ROM Psych Appearance: grossly normal Assessment and Plan Assessment & Plan (1) Physical exam: Code(s): Z00.00 - Encounter for general adult medical examination without abnormal findings Plan: Repeat in a year. (2) Chronic systolic (congestive) heart failure: Code(s): I50.22 - Chronic systolic (congestive) heart failure Plan: Continue Entresto, carvedilol and furosemide. Follow-up with Cardiology. The goal is to not gain 5 lb in a week. Echocardiogram pending. (3) Morbid obesity: Code(s): E66.01 - Morbid (severe) obesity due to excess calories Plan: Start Wegovy. BMI goal is less than 30. (4) Non-ST elevated myocardial infarction (non-STEMI): Code(s): I21.4 - Non-ST elevation (NSTEMI) myocardial infarction Plan: Lipid panel ordered. Her LDL goal should be less than 70. (5) Mild recurrent major depression: Code(s): F33.0 - Major depressive disorder, recurrent, mild Plan: Start trazodone. Orders: Orders NT-proBNP Today I50.22 - Chronic systolic (congestive) heart failure Vitamin D 25-OH Total Today E55.9 - Vitamin D deficiency, unspecified Complete Blood Count Auto Diff Today D64.9 - Anemia, unspecified IRON PROFILE Today D64.9 - Anemia, unspecified Lipid Panel Today E78.5 - Hyperlipidemia, unspecified Comprehensive [place]. Panel Fast Today I50.22 - Chronic systolic (congestive) heart failure MM screening mammo BI Today Z12.31 - Encounter for screening mammogram for malignant neoplasm of breast Referrals [facility]PORATE RECEPTIONIST Referral Z12.4 - Encounter for screening for malignant neoplasm of cervix Medications: New semaglutide (weight loss) (Wegovy) administer weeks 1 through 4 of therapy 0.25 mg (0.5 mL) subcut QWEEK 4 weeks 2 mL 0RF E66.01 - Morbid (severe) obesity due to excess calories, I10 - Essential (primary) hypertension, I21.4 - Non-ST elevation (NSTEMI) myocardial infarction, I50.22 - Chronic systolic (congestive) heart failure trazodone 50 mg PO BEDTIME 90 days PRN 90 tabs 1RF sleep Coding Level of Care Code Est Pt Level 3 (36297) Est Pt Prev Care 40-64y(10358) Diagnoses Physical exam Z00.00 Chronic systolic (congestive) heart failure I50.22 Morbid obesity E66.01 Non-ST elevated myocardial infarction (non-STEMI) I21.4 Mild recurrent major depression F33.0 Additional Codes GALINA-7 Assessment Billing - GALINA-7 Assessment Tool: GALINA-7 Assessment 86672 ([id number]) Time Spent (min) 35
== END 2024-04-11 15:16 | disposition home or self-care (01) ==
PROVIDERS: PCP Internal Medicine; Visit Provider Internal Medicine
DX: Z00.00 Encounter for general adult medical examination without abnormal findings (principal); I50.22 Chronic systolic (congestive) heart failure; E66.01 Morbid (severe) obesity due to excess calories; Z68.41 Body mass index [BMI] 40.0-44.9, adult; F33.0 Major depressive disorder, recurrent, mild; I25.2 Old myocardial infarction
CPT/HCPCS: 99213; 99396

== ENCOUNTER → 2024-04-24 23:59 | Outpatient (BNV) | payer OTHER, SELFPAY ==
--- NOTE | 2024-04-30 09:59 | MHC.OFFVIS ---
Intake Visit Reasons: Remote HF monitoring- [employer] Allergies gabapentin Allergy (Intermediate, Verified 04/11/24 14:58) memory loss ibuprofen Allergy (Intermediate, Verified 04/11/24 14:58) abdominal pain celecoxib [Celebrex] Allergy (Unknown, Verified 04/11/24 14:58) Unknown [facility] Medical History (Updated 04/11/24 @ 16:52 by Char Molina MD) Non-ST elevated myocardial infarction (non-STEMI) CHF exacerbation Acute on chronic systolic and diastolic heart failure, NYHA class 3 Biventricular ICD (implantable cardioverter-defibrillator) in place Pacemaker LBBB (left bundle branch block) Cardiomyopathy Mild recurrent major depression Moderate asthma Pneumonia Hospital discharge follow-up GERD (gastroesophageal reflux disease) Migraines Iron deficiency anemia HTN (hypertension) Surgical History S/P cardiac cath History of gastric bypass History of hip replacement, total History of hip replacement Family History Father CAD (coronary artery disease) Mother CAD (coronary artery disease) Son No problems noted. Daughter No problems noted. Son No problems noted. Social History Household Members: Spouse and Children Housing: House Do you presently have visiting nurse or other home services: No Alcohol intake: unknown Patient Tobacco Use Status: Never used Tobacco e-Cigarette/Vaping Use: Never Used Second Hand Smoke Exposure: No service: No Current occupational status: disabled Cognitive needs: No Hearing needs: No Vision needs: Yes Office Procedures Cardiac Device Check Cardiac Device Check Details: Date of service- 04/24/2024; based on impedance data and physiological variables, there is possible optivol fluid accumulation Mar to Apr. [id number] Cardiac Device Interrogation, cardio physiologic monitor Procedure code (CPT) selection complete Assessment & Plan Assessment & Plan (1) Chronic systolic (congestive) heart failure: Code(s): I50.22 - Chronic systolic (congestive) heart failure Category: Medical Plan x Coding Level of Care Code Procedure Only Diagnoses Chronic systolic (congestive) heart failure I50.22 CPT Codes Cardiac Device Check - Cardiac Device 15: [id number] Cardiac Device Interrogation, cardio physiologic monitor ([id number])
== END ==
PROVIDERS: PCP Internal Medicine; Visit Provider Internal Medicine
DX: I50.22 Chronic systolic (congestive) heart failure (principal); Z95.810 Presence of automatic (implantable) cardiac defibrillator
CPT/HCPCS: 93297

== ENCOUNTER 2024-04-26 13:26 | Outpatient (REF) | payer OTHER, SELFPAY ==
--- NOTE | ~2024-04-26 | MM_ITS ---
EXAMINATION: MM SCREENING DIGITAL BREAST TOMOSYNTHESIS, BILATERAL CLINICAL INFORMATION: Screening. Asymptomatic. COMPARISON: Mammography: Comparison is made with available priors TECHNIQUE: Digital breast mammography with tomosynthesis is performed in both the craniocaudal and mediolateral oblique views along with computer-aided detection (CAD). FINDINGS: There are scattered areas of fibroglandular density (ACR BI-RADS breast composition Category b). Pacemaker obscures the left superior posterior breast on MLO view. There are no significant masses, abnormal calcifications, or other abnormalities. MM/MM tomosynthesis screening BI IMPRESSION: No mammographic evidence of malignancy. ASSESSMENT: BI-RADS BI-RADS 1 - Negative RECOMMENDATION: Routine annual mammography screening. 1 year F/U This examination should not preclude the clinical evaluation of a suspicious palpable abnormality. This patient's information was entered into a reminder system with a target due date for their next mammogram. Electronically signed by: Muna Borges DO 05/11/2024 01:02 PM EDT
== END 2024-04-26 13:27 | disposition home or self-care (01) ==
LOC: HO.MAMMO 13:26
PROVIDERS: PCP Internal Medicine; Visit Provider Internal Medicine
DX: Z12.31 Encounter for screening mammogram for malignant neoplasm of breast (principal)
CPT/HCPCS: 77063; 77067

== ENCOUNTER → 2024-04-26 13:30 | Outpatient (BNV) | payer OTHER, SELFPAY | PROVIDERS: PCP Internal Medicine; Visit Provider Internal Medicine | DX: Z12.31 Encounter for screening mammogram for malignant neoplasm of breast (principal) | CPT/HCPCS: 77063; 77067 ==

== ENCOUNTER → 2024-05-25 23:59 | Outpatient (BNV) | payer OTHER, SELFPAY ==
--- NOTE | 2024-05-28 18:40 | MHC.OFFVIS ---
Intake Visit Reasons: Remote HF monitoring- [employer] Allergies gabapentin Allergy (Intermediate, Verified 04/11/24 14:58) memory loss ibuprofen Allergy (Intermediate, Verified 04/11/24 14:58) abdominal pain celecoxib [Celebrex] Allergy (Unknown, Verified 04/11/24 14:58) Unknown [facility] Medical History (Updated 05/28/24 @ 18:38 by Luis Erickson MD) Acute on chronic systolic and diastolic heart failure, NYHA class 3 Non-ST elevated myocardial infarction (non-STEMI) CHF exacerbation Biventricular ICD (implantable cardioverter-defibrillator) in place Pacemaker LBBB (left bundle branch block) Cardiomyopathy Mild recurrent major depression Moderate asthma Pneumonia Hospital discharge follow-up GERD (gastroesophageal reflux disease) Migraines Iron deficiency anemia HTN (hypertension) Surgical History S/P cardiac cath History of gastric bypass History of hip replacement, total History of hip replacement Family History Father CAD (coronary artery disease) Mother CAD (coronary artery disease) Son No problems noted. Daughter No problems noted. Son No problems noted. Social History Household Members: Spouse and Children Housing: House Do you presently have visiting nurse or other home services: No Alcohol intake: unknown Patient Tobacco Use Status: Never used Tobacco e-Cigarette/Vaping Use: Never Used Second Hand Smoke Exposure: No service: No Current occupational status: disabled Cognitive needs: No Hearing needs: No Vision needs: Yes Office Procedures Cardiac Device Check Cardiac Device Check Details: Date of service- 05/25/2024; based on impedance data and physiological variables, there is no evidence of worsening congestive heart failure. [id number] Cardiac Device Interrogation, cardio physiologic monitor Procedure code (CPT) selection complete Assessment & Plan Assessment & Plan (1) Biventricular ICD (implantable cardioverter-defibrillator) in place: Code(s): Z95.810 - Presence of automatic (implantable) cardiac defibrillator Category: Medical (2) Chronic systolic (congestive) heart failure: Code(s): I50.22 - Chronic systolic (congestive) heart failure Category: Medical Plan x Coding Level of Care Code Procedure Only Diagnoses Biventricular ICD (implantable cardioverter-defibrillator) in place Z95.810 Chronic systolic (congestive) heart failure I50.22 CPT Codes Cardiac Device Check - Cardiac Device 15: [id number] Cardiac Device Interrogation, cardio physiologic monitor ([id number])
== END ==
PROVIDERS: PCP Internal Medicine; Visit Provider Internal Medicine
DX: I50.22 Chronic systolic (congestive) heart failure (principal); Z95.810 Presence of automatic (implantable) cardiac defibrillator
CPT/HCPCS: 93297

== ENCOUNTER → 2024-05-25 23:59 | Outpatient (BNV) | payer OTHER, SELFPAY ==
--- NOTE | 2024-05-28 18:36 | A.OFFVIS_ITS ---
Intake Visit Reasons: Remote ICD Check- [employer] Allergies gabapentin Allergy (Intermediate, Verified 04/11/24 14:58) memory loss ibuprofen Allergy (Intermediate, Verified 04/11/24 14:58) abdominal pain celecoxib [Celebrex] Allergy (Unknown, Verified 04/11/24 14:58) Unknown [facility] Medical History (Updated 05/28/24 @ 18:38 by Luis Erickson MD) Acute on chronic systolic and diastolic heart failure, NYHA class 3 Non-ST elevated myocardial infarction (non-STEMI) CHF exacerbation Biventricular ICD (implantable cardioverter-defibrillator) in place Pacemaker LBBB (left bundle branch block) Cardiomyopathy Mild recurrent major depression Moderate asthma Pneumonia Hospital discharge follow-up GERD (gastroesophageal reflux disease) Migraines Iron deficiency anemia HTN (hypertension) Surgical History S/P cardiac cath History of gastric bypass History of hip replacement, total History of hip replacement Family History Father CAD (coronary artery disease) Mother CAD (coronary artery disease) Son No problems noted. Daughter No problems noted. Son No problems noted. Social History Household Members: Spouse and Children Housing: House Do you presently have visiting nurse or other home services: No Alcohol intake: unknown Patient Tobacco Use Status: Never used Tobacco e-Cigarette/Vaping Use: Never Used Second Hand Smoke Exposure: No service: No Current occupational status: disabled Cognitive needs: No Hearing needs: No Vision needs: Yes Office Procedures Cardiac Device Check Cardiac Device Check Details: Date of service 05/25/2024; Battery life >6 years; normal lead parameters; no treated VT/VF; adequate ventricular pacing; normal ICD function. [id number] Cardiac Interrogation, implant defibrillator w/interim Procedure code (CPT) selection complete Assessment & Plan Assessment & Plan (1) Biventricular ICD (implantable cardioverter-defibrillator) in place: Code(s): Z95.810 - Presence of automatic (implantable) cardiac defibrillator Category: Medical (2) Chronic systolic (congestive) heart failure: Code(s): I50.22 - Chronic systolic (congestive) heart failure Category: Medical Plan x Coding Level of Care Code Procedure Only Diagnoses Biventricular ICD (implantable cardioverter-defibrillator) in place Z95.810 Chronic systolic (congestive) heart failure I50.22 CPT Codes Cardiac Device Check - Cardiac Device 13: [id number]-Chrdqr Cardiac Interrogation, implant defibrillator w/interim ([id number])
== END ==
PROVIDERS: PCP Internal Medicine; Visit Provider Internal Medicine
DX: I50.22 Chronic systolic (congestive) heart failure (principal); Z95.810 Presence of automatic (implantable) cardiac defibrillator
CPT/HCPCS: 93295

== ENCOUNTER → 2024-06-24 23:59 | Outpatient (BNV) | payer OTHER, SELFPAY ==
--- NOTE | 2024-07-02 09:42 | MHC.OFFVIS ---
Intake Visit Reasons: Remote HF monitoring- [employer] Allergies gabapentin Allergy (Intermediate, Verified 04/11/24 14:58) memory loss ibuprofen Allergy (Intermediate, Verified 04/11/24 14:58) abdominal pain celecoxib [Celebrex] Allergy (Unknown, Verified 04/11/24 14:58) Unknown [facility] Medical History (Updated 05/28/24 @ 18:38 by Luis Erickson MD) Acute on chronic systolic and diastolic heart failure, NYHA class 3 Non-ST elevated myocardial infarction (non-STEMI) CHF exacerbation Biventricular ICD (implantable cardioverter-defibrillator) in place Pacemaker LBBB (left bundle branch block) Cardiomyopathy Mild recurrent major depression Moderate asthma Pneumonia Hospital discharge follow-up GERD (gastroesophageal reflux disease) Migraines Iron deficiency anemia HTN (hypertension) Surgical History S/P cardiac cath History of gastric bypass History of hip replacement, total History of hip replacement Family History Father CAD (coronary artery disease) Mother CAD (coronary artery disease) Son No problems noted. Daughter No problems noted. Son No problems noted. Social History Household Members: Spouse and Children Housing: House Do you presently have visiting nurse or other home services: No Alcohol intake: unknown Patient Tobacco Use Status: Never used Tobacco e-Cigarette/Vaping Use: Never Used Second Hand Smoke Exposure: No service: No Current occupational status: disabled Cognitive needs: No Hearing needs: No Vision needs: Yes Office Procedures Cardiac Device Check Cardiac Device Check Details: Date of service- 06/24/2024; based on impedance data and physiological variables, there is no evidence of worsening congestive heart failure. [id number] Cardiac Device Interrogation, cardio physiologic monitor Procedure code (CPT) selection complete Assessment & Plan Assessment & Plan (1) Biventricular ICD (implantable cardioverter-defibrillator) in place: Code(s): Z95.810 - Presence of automatic (implantable) cardiac defibrillator Category: Medical (2) Chronic systolic (congestive) heart failure: Code(s): I50.22 - Chronic systolic (congestive) heart failure Category: Medical Plan x Coding Level of Care Code Procedure Only Diagnoses Biventricular ICD (implantable cardioverter-defibrillator) in place Z95.810 Chronic systolic (congestive) heart failure I50.22 CPT Codes Cardiac Device Check - Cardiac Device 15: [id number] Cardiac Device Interrogation, cardio physiologic monitor ([id number])
== END ==
PROVIDERS: PCP Internal Medicine; Visit Provider Internal Medicine
DX: I50.22 Chronic systolic (congestive) heart failure (principal); Z95.810 Presence of automatic (implantable) cardiac defibrillator
CPT/HCPCS: 93297

== ENCOUNTER → 2024-07-25 23:59 | Outpatient (BNV) | payer OTHER, SELFPAY ==
--- NOTE | 2024-07-25 19:13 | MHC.OFFVIS ---
Intake Visit Reasons: Remote HF monitoring- [employer] Allergies gabapentin Allergy (Intermediate, Verified 04/11/24 14:58) memory loss ibuprofen Allergy (Intermediate, Verified 04/11/24 14:58) abdominal pain celecoxib [Celebrex] Allergy (Unknown, Verified 04/11/24 14:58) Unknown [facility] Medical History (Updated 05/28/24 @ 18:38 by Luis Erickson MD) Acute on chronic systolic and diastolic heart failure, NYHA class 3 Non-ST elevated myocardial infarction (non-STEMI) CHF exacerbation Biventricular ICD (implantable cardioverter-defibrillator) in place Pacemaker LBBB (left bundle branch block) Cardiomyopathy Mild recurrent major depression Moderate asthma Pneumonia Hospital discharge follow-up GERD (gastroesophageal reflux disease) Migraines Iron deficiency anemia HTN (hypertension) Surgical History S/P cardiac cath History of gastric bypass History of hip replacement, total History of hip replacement Family History Father CAD (coronary artery disease) Mother CAD (coronary artery disease) Son No problems noted. Daughter No problems noted. Son No problems noted. Social History Household Members: Spouse and Children Housing: House Do you presently have visiting nurse or other home services: No Alcohol intake: unknown Patient Tobacco Use Status: Never used Tobacco e-Cigarette/Vaping Use: Never Used Second Hand Smoke Exposure: No service: No Current occupational status: disabled Cognitive needs: No Hearing needs: No Vision needs: Yes Office Procedures Cardiac Device Check Cardiac Device Check Details: Date of service- 07/25/2024; based on impedance data and physiological variables, there is no evidence of worsening congestive heart failure. [id number] Cardiac Device Interrogation, cardio physiologic monitor Procedure code (CPT) selection complete Assessment & Plan Assessment & Plan (1) Biventricular ICD (implantable cardioverter-defibrillator) in place: Code(s): Z95.810 - Presence of automatic (implantable) cardiac defibrillator Category: Medical (2) Chronic systolic (congestive) heart failure: Code(s): I50.22 - Chronic systolic (congestive) heart failure Category: Medical Plan x Coding Level of Care Code Procedure Only Diagnoses Biventricular ICD (implantable cardioverter-defibrillator) in place Z95.810 Chronic systolic (congestive) heart failure I50.22 CPT Codes Cardiac Device Check - Cardiac Device 15: [id number] Cardiac Device Interrogation, cardio physiologic monitor ([id number])
== END ==
PROVIDERS: PCP Internal Medicine; Visit Provider Internal Medicine
DX: I50.22 Chronic systolic (congestive) heart failure (principal); Z95.810 Presence of automatic (implantable) cardiac defibrillator
CPT/HCPCS: 93297

== ENCOUNTER → 2024-08-25 23:59 | Outpatient (BNV) | payer OTHER, SELFPAY ==
--- NOTE | 2024-08-31 15:50 | A.OFFVIS_ITS ---
Intake Visit Reasons: Remote ICD Check- [employer] Allergies gabapentin Allergy (Intermediate, Verified 04/11/24 14:58) memory loss ibuprofen Allergy (Intermediate, Verified 04/11/24 14:58) abdominal pain celecoxib [Celebrex] Allergy (Unknown, Verified 04/11/24 14:58) Unknown [facility] Medical History (Updated 05/28/24 @ 18:38 by Luis Erickson MD) Acute on chronic systolic and diastolic heart failure, NYHA class 3 Non-ST elevated myocardial infarction (non-STEMI) CHF exacerbation Biventricular ICD (implantable cardioverter-defibrillator) in place Pacemaker LBBB (left bundle branch block) Cardiomyopathy Mild recurrent major depression Moderate asthma Pneumonia Hospital discharge follow-up GERD (gastroesophageal reflux disease) Migraines Iron deficiency anemia HTN (hypertension) Surgical History S/P cardiac cath History of gastric bypass History of hip replacement, total History of hip replacement Family History Father CAD (coronary artery disease) Mother CAD (coronary artery disease) Son No problems noted. Daughter No problems noted. Son No problems noted. Social History Household Members: Spouse and Children Housing: House Do you presently have visiting nurse or other home services: No Alcohol intake: unknown Patient Tobacco Use Status: Never used Tobacco e-Cigarette/Vaping Use: Never Used Second Hand Smoke Exposure: No service: No Current occupational status: disabled Cognitive needs: No Hearing needs: No Vision needs: Yes Office Procedures Cardiac Device Check Cardiac Device Check Details: Date of service 08/25/2024; Battery life years; normal lead parameters; no treated VT/VF; effective V pacing 97.9%; normal ICD function. 47296-DP Cardiac Device Check, multi lead implantable defibrillator Procedure code (CPT) selection complete Assessment & Plan Assessment & Plan (1) Biventricular ICD (implantable cardioverter-defibrillator) in place: Code(s): Z95.810 - Presence of automatic (implantable) cardiac defibrillator Category: Medical (2) Chronic systolic (congestive) heart failure: Code(s): I50.22 - Chronic systolic (congestive) heart failure Category: Medical Plan x Coding Level of Care Code Procedure Only Diagnoses Biventricular ICD (implantable cardioverter-defibrillator) in place Z95.810 Chronic systolic (congestive) heart failure I50.22 CPT Codes Cardiac Device Check - Cardiac Device 6: [id number]-[id number] Cardiac Device Check, multi lead implantable defibrillator ([id number])
== END ==
PROVIDERS: PCP Internal Medicine; Visit Provider Internal Medicine
DX: I50.22 Chronic systolic (congestive) heart failure (principal); Z95.810 Presence of automatic (implantable) cardiac defibrillator
CPT/HCPCS: 93295

== ENCOUNTER → 2024-08-25 23:59 | Outpatient (BNV) | payer OTHER, SELFPAY ==
--- NOTE | 2024-08-31 15:48 | MHC.OFFVIS ---
Intake Visit Reasons: Remote HF monitoring- [employer] Allergies gabapentin Allergy (Intermediate, Verified 04/11/24 14:58) memory loss ibuprofen Allergy (Intermediate, Verified 04/11/24 14:58) abdominal pain celecoxib [Celebrex] Allergy (Unknown, Verified 04/11/24 14:58) Unknown [facility] Medical History (Updated 05/28/24 @ 18:38 by Luis Erickson MD) Acute on chronic systolic and diastolic heart failure, NYHA class 3 Non-ST elevated myocardial infarction (non-STEMI) CHF exacerbation Biventricular ICD (implantable cardioverter-defibrillator) in place Pacemaker LBBB (left bundle branch block) Cardiomyopathy Mild recurrent major depression Moderate asthma Pneumonia Hospital discharge follow-up GERD (gastroesophageal reflux disease) Migraines Iron deficiency anemia HTN (hypertension) Surgical History S/P cardiac cath History of gastric bypass History of hip replacement, total History of hip replacement Family History Father CAD (coronary artery disease) Mother CAD (coronary artery disease) Son No problems noted. Daughter No problems noted. Son No problems noted. Social History Household Members: Spouse and Children Housing: House Do you presently have visiting nurse or other home services: No Alcohol intake: unknown Patient Tobacco Use Status: Never used Tobacco e-Cigarette/Vaping Use: Never Used Second Hand Smoke Exposure: No service: No Current occupational status: disabled Cognitive needs: No Hearing needs: No Vision needs: Yes Office Procedures Cardiac Device Check Cardiac Device Check Details: Date of service- 08/25/2024; based on impedance data and physiological variables, there is no evidence of worsening congestive heart failure. [id number] Cardiac Device Interrogation, cardio physiologic monitor Procedure code (CPT) selection complete Assessment & Plan Assessment & Plan (1) Biventricular ICD (implantable cardioverter-defibrillator) in place: Code(s): Z95.810 - Presence of automatic (implantable) cardiac defibrillator Category: Medical (2) Chronic systolic (congestive) heart failure: Code(s): I50.22 - Chronic systolic (congestive) heart failure Category: Medical Plan x Coding Level of Care Code Procedure Only Diagnoses Biventricular ICD (implantable cardioverter-defibrillator) in place Z95.810 Chronic systolic (congestive) heart failure I50.22 CPT Codes Cardiac Device Check - Cardiac Device 15: [id number] Cardiac Device Interrogation, cardio physiologic monitor ([id number])
== END ==
PROVIDERS: PCP Internal Medicine; Visit Provider Internal Medicine
DX: I50.22 Chronic systolic (congestive) heart failure (principal); Z95.810 Presence of automatic (implantable) cardiac defibrillator
CPT/HCPCS: 93297

== ENCOUNTER 2024-09-18 13:37 | Outpatient (AMB) | payer OTHER, SELFPAY ==
--- NOTE | 2024-09-18 13:55 | MHC.OFFVIS ---
Vital Signs 09/18/24 13:56 Height 4 ft 11 in Weight 209 lb 7.026 oz BMI 42.3 BP 116/60 Blood Pressure Location Lt brachial Position Sitting Pulse 62 Pulse Source Monitor Intake Visit Reasons: 6m f/u s/p Echo, device check (r/s fr 06/19/24) Media Monitor Required: Yes Media Monitor Services: Media Monitor Offered & Declined Allergies gabapentin Allergy (Intermediate, Verified 04/11/24 14:58) memory loss ibuprofen Allergy (Intermediate, Verified 04/11/24 14:58) abdominal pain celecoxib [Celebrex] Allergy (Unknown, Verified 04/11/24 14:58) Unknown Medication List - Last Reconciled 09/18/24 by Luis Erickson MD bisoprolol fumarate 2.5 mg (1/2 x 5 mg) PO DAILY blood pressure monitor As directed dapagliflozin propanediol (Farxiga) 10 mg PO QAM furosemide 40 mg PO BID omeprazole 40 mg PO DAILY 90 days sacubitril-valsartan 24-26 mg (Entresto) 1 tab PO BID spironolactone 25 mg PO DAILY sumatriptan succinate 50 mg PO Q2H PRN 30 days tramadol 50 mg PO Q8H 30 days trazodone 50 mg PO BEDTIME PRN 90 days HPI Comments Details: Montserrat returns for follow-up regarding cardiomyopathy. She has a history of nonischemic cardiomyopathy. She also has BiVICD in place. In 2022, admitted for chest pain symptoms. Troponins were significantly elevated. Due to this, she had another cardiac catheterization that however did not show any significant CAD. Etiology for the troponin elevation was not very clear. Since last seen, no new concerns. Shortness of breath is just about the same as before and she seems to be getting around without any major issues. Some nonspecific tiredness off and on. Seems to be on appropriate medications overall. [facility] Medical History (Updated 09/18/24 @ 14:54 by Luis Erickson MD) Acute on chronic systolic and diastolic heart failure, NYHA class 3 Non-ST elevated myocardial infarction (non-STEMI) CHF exacerbation Biventricular ICD (implantable cardioverter-defibrillator) in place Pacemaker LBBB (left bundle branch block) Cardiomyopathy Mild recurrent major depression Moderate asthma Pneumonia Hospital discharge follow-up GERD (gastroesophageal reflux disease) Migraines Iron deficiency anemia HTN (hypertension) Surgical History S/P cardiac cath History of gastric bypass History of hip replacement, total History of hip replacement Family History Father CAD (coronary artery disease) Mother CAD (coronary artery disease) Son No problems noted. Daughter No problems noted. Son No problems noted. Social History Household Members: Spouse and Children Housing: House Do you presently have visiting nurse or other home services: No Alcohol intake: unknown Patient Tobacco Use Status: Never used Tobacco e-Cigarette/Vaping Use: Never Used Second Hand Smoke Exposure: No service: No Current occupational status: disabled Cognitive needs: No Hearing needs: No Vision needs: Yes Review of Systems Const Denies weakness ENT Denies dizziness Card Denies chest pain, Denies chest pain with activity, Denies syncope, Denies rapid heart rate, Denies pedal edema, Denies edema, Denies leg edema, Denies lightheadedness, Denies palpitations, Denies dyspnea, Denies dyspnea on exertion and Denies orthopnea Resp Denies cough, Denies dyspnea and Denies dyspnea on exertion GI Denies hematochezia and Denies change in stool character Musc Denies abnormal gait, Denies muscle cramps, Denies muscle weakness, Denies numbness, Denies radiating pain into limb and Denies tingling Neuro Denies abnormal gait, Denies dizziness, Denies syncope, Denies numbness, Denies tingling and Denies weakness Endo Denies palpitations Physical Exam Vital Signs: Last Vital Signs Pulse 62 09/18/24 13:56 BP 116/60 09/18/24 13:56 BMI result Body Mass Index 42.3 Const General: comfortable and no acute distress Orientation/consciousness: patient oriented x3 HEENT Other: Unremarkable Head: Yes normal to inspection Neck Neck: Yes normal visual inspection Chest Chest palpation & inspection: normal inspection of the chest Resp Auscultation: clear to auscultation bilaterally Cardio Palpation: normal PMI Heart sounds: S1 normal heart sound present, S2 normal heart sound present, no gallops, no murmurs and no rubs GI Palpation (GI): Soft to palpation Back/Spine/Pelvis Other: unremarkable Skin General skin exam: no rashes or lesions noted Neuro General: patient oriented x3 Extrem General: Yes normal to inspection Psych Mental Status: mental status grossly normal Office Procedures Cardiac Device Check Cardiac Device Check Details: ICD interrogated today. Biventricular device. Battery status 6.6 years. Normal lead parameters. No alerts. Adequate Bi V pacing. Overall, normal device function. 47253-JW Cardiac Device Check, multi lead implantable defibrillator Procedure code (CPT) selection complete EKG Details: EKG with atrial sensed, biventricular paced rhythm at 62/Min. 26148-Lbekgicukjfbawghf, Complete Assessment & Plan Assessment & Plan (1) Cardiomyopathy: Code(s): I42.9 - Cardiomyopathy, unspecified Category: Medical Qualifiers: Cardiomyopathy type: unspecified Qualified Code(s): I42.9 - Cardiomyopathy, unspecified (2) Biventricular ICD (implantable cardioverter-defibrillator) in place: Code(s): Z95.810 - Presence of automatic (implantable) cardiac defibrillator Category: Medical Plan In the last echocardiogram from 2022, LVEF 16%. Wzsh-oq-wqjehnml mitral regurgitation. Dilated LV cavity. Cardiac catheterization shows normal coronary arteries. Etiology could be left bundle-branch related cardiomyopathy. Clinically, no overt evidence of congestive heart failure. Continue current medical regimen including bisoprolol, Entresto, Farxiga, spironolactone, Lasix. There is already an order for labs from last year and advised her to do that. There was also an echocardiogram request from last year but not yet performed. Advised to do that as well. ICD can be monitored remotely. Follow-up in 6 months. Orders: Orders Comprehensive [place]. Panel Fast Today I50.22 - Chronic systolic (congestive) heart failure Coding Level of Care Code Est Pt Level 4 (28547) Diagnoses Cardiomyopathy, unspecified type I42.9 Cardiomyopathy type: unspecified Biventricular ICD (implantable cardioverter-defibrillator) in place Z95.810 CPT Codes Cardiac Device Check - Cardiac Device 6: 99731-HF Cardiac Device Check, multi lead implantable defibrillator ([id number]) EKG - CPT: 02682-Sytaqfzitymliqpob, Complete ([id number])
[2024-09-18 13:56] VITALS: BP 116/60; PULSE 62; BMI 42.3
== END 2024-09-18 14:34 | disposition home or self-care (01) ==
PROVIDERS: PCP Internal Medicine; Visit Provider Internal Medicine
DX: I42.9 Cardiomyopathy, unspecified (principal); Z95.810 Presence of automatic (implantable) cardiac defibrillator
CPT/HCPCS: 93010; 93284; 99214

== ENCOUNTER → 2024-09-18 13:37 | Outpatient (BNVA) | payer OTHER, SELFPAY | PROVIDERS: PCP Internal Medicine; Visit Provider Internal Medicine | DX: Z45.02 Encounter for adjustment and management of automatic implantable cardiac defibrillator (principal); I42.9 Cardiomyopathy, unspecified; I45.4 Nonspecific intraventricular block | CPT/HCPCS: 93005; 99212 ==

== ENCOUNTER → 2024-09-24 23:59 | Outpatient (BNV) | payer OTHER, SELFPAY ==
--- NOTE | 2024-09-30 19:24 | A.OFFVIS_ITS ---
Intake Visit Reasons: Remote HF monitoring- [employer] Allergies gabapentin Allergy (Intermediate, Verified 04/11/24 14:58) memory loss ibuprofen Allergy (Intermediate, Verified 04/11/24 14:58) abdominal pain celecoxib [Celebrex] Allergy (Unknown, Verified 04/11/24 14:58) Unknown [facility] Medical History (Updated 09/18/24 @ 14:54 by Luis Erickson MD) Acute on chronic systolic and diastolic heart failure, NYHA class 3 Non-ST elevated myocardial infarction (non-STEMI) CHF exacerbation Biventricular ICD (implantable cardioverter-defibrillator) in place Pacemaker LBBB (left bundle branch block) Cardiomyopathy Mild recurrent major depression Moderate asthma Pneumonia Hospital discharge follow-up GERD (gastroesophageal reflux disease) Migraines Iron deficiency anemia HTN (hypertension) Surgical History S/P cardiac cath History of gastric bypass History of hip replacement, total History of hip replacement Family History Father CAD (coronary artery disease) Mother CAD (coronary artery disease) Son No problems noted. Daughter No problems noted. Son No problems noted. Social History Household Members: Spouse and Children Housing: House Do you presently have visiting nurse or other home services: No Alcohol intake: unknown Patient Tobacco Use Status: Never used Tobacco e-Cigarette/Vaping Use: Never Used Second Hand Smoke Exposure: No service: No Current occupational status: disabled Cognitive needs: No Hearing needs: No Vision needs: Yes Office Procedures Cardiac Device Check Cardiac Device Check Details: Date of service- 09/24/2024; based on impedance data and physiological variables, there is no evidence of worsening congestive heart failure. [id number] Cardiac Device Interrogation, cardio physiologic monitor Procedure code (CPT) selection complete Assessment & Plan Assessment & Plan (1) Biventricular ICD (implantable cardioverter-defibrillator) in place: Code(s): Z95.810 - Presence of automatic (implantable) cardiac defibrillator Category: Medical (2) Chronic systolic (congestive) heart failure: Code(s): I50.22 - Chronic systolic (congestive) heart failure Category: Medical Plan x Coding Level of Care Code Procedure Only Diagnoses Biventricular ICD (implantable cardioverter-defibrillator) in place Z95.810 Chronic systolic (congestive) heart failure I50.22 CPT Codes Cardiac Device Check - Cardiac Device 15: 85854-Csvjnk Cardiac Device Interrogation, cardio physiologic monitor ([id number])
== END ==
PROVIDERS: PCP Internal Medicine; Visit Provider Internal Medicine
DX: I50.22 Chronic systolic (congestive) heart failure (principal); Z95.810 Presence of automatic (implantable) cardiac defibrillator
CPT/HCPCS: 93297

== ENCOUNTER → 2024-10-25 23:59 | Outpatient (BNV) | payer OTHER, SELFPAY ==
--- NOTE | 2024-10-31 13:58 | MHC.OFFVIS ---
Intake Visit Reasons: Remote HF monitoring- [employer] Allergies gabapentin Allergy (Intermediate, Verified 04/11/24 14:58) memory loss ibuprofen Allergy (Intermediate, Verified 04/11/24 14:58) abdominal pain celecoxib [Celebrex] Allergy (Unknown, Verified 04/11/24 14:58) Unknown [facility] Medical History (Updated 09/18/24 @ 14:54 by Luis Erickson MD) Acute on chronic systolic and diastolic heart failure, NYHA class 3 Non-ST elevated myocardial infarction (non-STEMI) CHF exacerbation Biventricular ICD (implantable cardioverter-defibrillator) in place Pacemaker LBBB (left bundle branch block) Cardiomyopathy Mild recurrent major depression Moderate asthma Pneumonia Hospital discharge follow-up GERD (gastroesophageal reflux disease) Migraines Iron deficiency anemia HTN (hypertension) Surgical History S/P cardiac cath History of gastric bypass History of hip replacement, total History of hip replacement Family History Father CAD (coronary artery disease) Mother CAD (coronary artery disease) Son No problems noted. Daughter No problems noted. Son No problems noted. Social History Household Members: Spouse and Children Housing: House Do you presently have visiting nurse or other home services: No Alcohol intake: unknown Patient Tobacco Use Status: Never used Tobacco e-Cigarette/Vaping Use: Never Used Second Hand Smoke Exposure: No service: No Current occupational status: disabled Cognitive needs: No Hearing needs: No Vision needs: Yes Office Procedures Cardiac Device Check Cardiac Device Check Details: Date of service- 10/25/2024; based on impedance data and physiological variables, there is no evidence of worsening congestive heart failure. 25197-Yqhbus Cardiac Device Interrogation, cardio physiologic monitor Procedure code (CPT) selection complete Assessment & Plan Assessment & Plan (1) Biventricular ICD (implantable cardioverter-defibrillator) in place: Code(s): Z95.810 - Presence of automatic (implantable) cardiac defibrillator Category: Medical (2) Chronic systolic (congestive) heart failure: Code(s): I50.22 - Chronic systolic (congestive) heart failure Category: Medical Plan x Coding Level of Care Code Procedure Only Diagnoses Biventricular ICD (implantable cardioverter-defibrillator) in place Z95.810 Chronic systolic (congestive) heart failure I50.22 CPT Codes Cardiac Device Check - Cardiac Device 15: 44225-Ewylcb Cardiac Device Interrogation, cardio physiologic monitor ([id number])
== END ==
PROVIDERS: PCP Internal Medicine; Visit Provider Internal Medicine
DX: I50.22 Chronic systolic (congestive) heart failure (principal); Z95.810 Presence of automatic (implantable) cardiac defibrillator
CPT/HCPCS: 93297

== ENCOUNTER → 2024-11-25 23:59 | Outpatient (BNV) | payer OTHER, SELFPAY ==
--- NOTE | 2024-12-03 14:53 | A.OFFVIS_ITS ---
Intake Visit Reasons: Remote device check- [employer] Allergies gabapentin Allergy (Intermediate, Verified 04/11/24 14:58) memory loss ibuprofen Allergy (Intermediate, Verified 04/11/24 14:58) abdominal pain celecoxib [Celebrex] Allergy (Unknown, Verified 04/11/24 14:58) Unknown [facility] Medical History (Updated 09/18/24 @ 14:54 by Luis Erickson MD) Acute on chronic systolic and diastolic heart failure, NYHA class 3 Non-ST elevated myocardial infarction (non-STEMI) CHF exacerbation Biventricular ICD (implantable cardioverter-defibrillator) in place Pacemaker LBBB (left bundle branch block) Cardiomyopathy Mild recurrent major depression Moderate asthma Pneumonia Hospital discharge follow-up GERD (gastroesophageal reflux disease) Migraines Iron deficiency anemia HTN (hypertension) Surgical History S/P cardiac cath History of gastric bypass History of hip replacement, total History of hip replacement Family History Father CAD (coronary artery disease) Mother CAD (coronary artery disease) Son No problems noted. Daughter No problems noted. Son No problems noted. Social History Household Members: Spouse and Children Housing: House Do you presently have visiting nurse or other home services: No Alcohol intake: unknown Patient Tobacco Use Status: Never used Tobacco e-Cigarette/Vaping Use: Never Used Second Hand Smoke Exposure: No service: No Current occupational status: disabled Cognitive needs: No Hearing needs: No Vision needs: Yes Office Procedures Cardiac Device Check Cardiac Device Check Details: Date of service 11/25/2024; Battery life >6 years; normal lead parameters; no treated VT/VF; effective MICROFABRICATION ENGINEER MANAGER >96%; normal ICD function. 27563-Qhzwtu Cardiac Interrogation, implant defibrillator w/interim Procedure code (CPT) selection complete Assessment & Plan Assessment & Plan (1) Biventricular ICD (implantable cardioverter-defibrillator) in place: Code(s): Z95.810 - Presence of automatic (implantable) cardiac defibrillator Category: Medical (2) Chronic systolic (congestive) heart failure: Code(s): I50.22 - Chronic systolic (congestive) heart failure Category: Medical Plan x Coding Level of Care Code Procedure Only Diagnoses Biventricular ICD (implantable cardioverter-defibrillator) in place Z95.810 Chronic systolic (congestive) heart failure I50.22 CPT Codes Cardiac Device Check - Cardiac Device 13: 53454-Njufdr Cardiac Interrogation, implant defibrillator w/interim ([id number])
== END ==
PROVIDERS: PCP Internal Medicine; Visit Provider Internal Medicine
DX: I50.22 Chronic systolic (congestive) heart failure (principal); Z95.810 Presence of automatic (implantable) cardiac defibrillator
CPT/HCPCS: 93295

== ENCOUNTER → 2024-11-25 23:59 | Outpatient (BNV) | payer OTHER, SELFPAY ==
--- NOTE | 2024-12-03 14:52 | A.OFFVIS_ITS ---
Intake Visit Reasons: Remote HF monitoring- [employer] Allergies gabapentin Allergy (Intermediate, Verified 04/11/24 14:58) memory loss ibuprofen Allergy (Intermediate, Verified 04/11/24 14:58) abdominal pain celecoxib [Celebrex] Allergy (Unknown, Verified 04/11/24 14:58) Unknown [facility] Medical History (Updated 09/18/24 @ 14:54 by Luis Erickson MD) Acute on chronic systolic and diastolic heart failure, NYHA class 3 Non-ST elevated myocardial infarction (non-STEMI) CHF exacerbation Biventricular ICD (implantable cardioverter-defibrillator) in place Pacemaker LBBB (left bundle branch block) Cardiomyopathy Mild recurrent major depression Moderate asthma Pneumonia Hospital discharge follow-up GERD (gastroesophageal reflux disease) Migraines Iron deficiency anemia HTN (hypertension) Surgical History S/P cardiac cath History of gastric bypass History of hip replacement, total History of hip replacement Family History Father CAD (coronary artery disease) Mother CAD (coronary artery disease) Son No problems noted. Daughter No problems noted. Son No problems noted. Social History Household Members: Spouse and Children Housing: House Do you presently have visiting nurse or other home services: No Alcohol intake: unknown Patient Tobacco Use Status: Never used Tobacco e-Cigarette/Vaping Use: Never Used Second Hand Smoke Exposure: No service: No Current occupational status: disabled Cognitive needs: No Hearing needs: No Vision needs: Yes Office Procedures Cardiac Device Check Cardiac Device Check Details: Date of service- 11/25/2024; based on impedance data and physiological variables, there is no evidence of worsening congestive heart failure. 96050-Sejish Cardiac Device Interrogation, cardio physiologic monitor Procedure code (CPT) selection complete Assessment & Plan Assessment & Plan (1) Biventricular ICD (implantable cardioverter-defibrillator) in place: Code(s): Z95.810 - Presence of automatic (implantable) cardiac defibrillator Category: Medical (2) Chronic systolic (congestive) heart failure: Code(s): I50.22 - Chronic systolic (congestive) heart failure Category: Medical Plan x Coding Level of Care Code Procedure Only Diagnoses Biventricular ICD (implantable cardioverter-defibrillator) in place Z95.810 Chronic systolic (congestive) heart failure I50.22 CPT Codes Cardiac Device Check - Cardiac Device 15: 61822-Xspxtm Cardiac Device Interrogation, cardio physiologic monitor ([id number])
== END ==
PROVIDERS: PCP Internal Medicine; Visit Provider Internal Medicine
DX: I50.22 Chronic systolic (congestive) heart failure (principal); Z95.810 Presence of automatic (implantable) cardiac defibrillator
CPT/HCPCS: 93297

== ENCOUNTER → 2024-12-26 23:59 | Outpatient (BNV) | payer OTHER, SELFPAY ==
--- NOTE | 2024-12-27 13:28 | A.OFFVIS_ITS ---
Intake Visit Reasons: Remote HF monitoring- [employer] Allergies gabapentin Allergy (Intermediate, Verified 04/11/24 14:58) memory loss ibuprofen Allergy (Intermediate, Verified 04/11/24 14:58) abdominal pain celecoxib [Celebrex] Allergy (Unknown, Verified 04/11/24 14:58) Unknown [facility] Medical History (Updated 09/18/24 @ 14:54 by Luis Erickson MD) Acute on chronic systolic and diastolic heart failure, NYHA class 3 Non-ST elevated myocardial infarction (non-STEMI) CHF exacerbation Biventricular ICD (implantable cardioverter-defibrillator) in place Pacemaker LBBB (left bundle branch block) Cardiomyopathy Mild recurrent major depression Moderate asthma Pneumonia Hospital discharge follow-up GERD (gastroesophageal reflux disease) Migraines Iron deficiency anemia HTN (hypertension) Surgical History S/P cardiac cath History of gastric bypass History of hip replacement, total History of hip replacement Family History Father CAD (coronary artery disease) Mother CAD (coronary artery disease) Son No problems noted. Daughter No problems noted. Son No problems noted. Social History Household Members: Spouse and Children Housing: House Do you presently have visiting nurse or other home services: No Alcohol intake: unknown Patient Tobacco Use Status: Never used Tobacco e-Cigarette/Vaping Use: Never Used Second Hand Smoke Exposure: No service: No Current occupational status: disabled Cognitive needs: No Hearing needs: No Vision needs: Yes Office Procedures Cardiac Device Check Cardiac Device Check Details: Date of service- 12/26/2024; based on impedance data and physiological variables, there is no evidence of worsening congestive heart failure. [id number] Cardiac Device Interrogation, cardio physiologic monitor Procedure code (CPT) selection complete Assessment & Plan Assessment & Plan (1) Biventricular ICD (implantable cardioverter-defibrillator) in place: Code(s): Z95.810 - Presence of automatic (implantable) cardiac defibrillator Category: Medical (2) Chronic systolic (congestive) heart failure: Code(s): I50.22 - Chronic systolic (congestive) heart failure Category: Medical Plan x Coding Level of Care Code Procedure Only Diagnoses Biventricular ICD (implantable cardioverter-defibrillator) in place Z95.810 Chronic systolic (congestive) heart failure I50.22 CPT Codes Cardiac Device Check - Cardiac Device 15: [id number] Cardiac Device Interrogation, cardio physiologic monitor ([id number])
== END ==
PROVIDERS: PCP Internal Medicine; Visit Provider Internal Medicine
DX: I50.22 Chronic systolic (congestive) heart failure (principal); Z95.810 Presence of automatic (implantable) cardiac defibrillator
CPT/HCPCS: 93297

== ENCOUNTER 2025-01-11 15:17 | Outpatient (AMB) | payer OTHER, SELFPAY ==
[2025-01-11 15:38] VITALS: BP 126/70; BMI 41.2
--- NOTE | 2025-01-11 15:38 | MHC.PC.OV ---
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 Accompanied by: Children Allergies gabapentin Allergy (Intermediate, Verified 01/11/25 15:41) memory loss ibuprofen Allergy (Intermediate, Verified 01/11/25 15:41) abdominal pain celecoxib [Celebrex] Allergy (Unknown, Verified 01/11/25 15:41) Unknown Tobacco use date assessed: 01/11/25 Dental Screening Dental Screen Date: 01/11/25 Did you have a dental visit in the last 12 months?: No Did you have a dental problem in the last 6 months where you did not have access to dental care?: No Was dental information given to patient?: Patient has dentist HPI HPI Comments History of Present Illness Details The patient is a 59-year-old female presenting for follow-up on heart failure management. Her heart failure status is class III, with noted fatigue during daily activities. Recent echocardiogram results show a low ejection fraction of 16% as of March 2023. The patient has experienced weight fluctuation, with a decrease from 209 pounds to 204 pounds since September. There is a history of anemia and transaminitis, requiring periodic laboratory evaluations. She has mild major depression and takes trazodone as needed. Also is morbidly obese with a BMI of 41.2 and has history of non-STEMI and I will prescribe Zepbound. The patient reports controlled acid reflux and mild chest discomfort upon exertion. She has a documented allergy to Gabapentin and Celecoxib, experiencing memory loss and gastrointestinal symptoms. Medications include a regimen targeting heart failure, migraines, and acid reflux. She also notes a history of asthma symptoms. [facility] Medical History (Updated 01/11/25 @ 16:18 by Char Molina MD) Acute on chronic systolic and diastolic heart failure, NYHA class 3 Non-ST elevated myocardial infarction (non-STEMI) CHF exacerbation Biventricular ICD (implantable cardioverter-defibrillator) in place Pacemaker LBBB (left bundle branch block) Cardiomyopathy Mild recurrent major depression Moderate asthma Pneumonia Hospital discharge follow-up GERD (gastroesophageal reflux disease) Migraines Iron deficiency anemia HTN (hypertension) Surgical History S/P cardiac cath History of gastric bypass History of hip replacement, total History of hip replacement Family History Father CAD (coronary artery disease) Mother CAD (coronary artery disease) Son No problems noted. Daughter No problems noted. Son No problems noted. Social History Household Members: Spouse and Children Housing: House Do you presently have visiting nurse or other home services: No Alcohol intake: unknown Patient Tobacco Use Status: Never used Tobacco e-Cigarette/Vaping Use: Never Used Second Hand Smoke Exposure: No service: No Current occupational status: disabled Cognitive needs: No Hearing needs: No Vision needs: Yes Questionnaire PHQ-9 Over the last 2 weeks, how often have you been bothered by any of the following problems? 1. Little interest or pleasure in doing things: not at all 2. Feeling down, depressed, or hopeless: not at all 3. Trouble falling or staying asleep, or sleeping too much: not at all 4. Feeling tired or having little energy: nearly every day 5. Poor appetite or overeating: nearly every day 6. Feeling bad about yourself - or that you are a failure or have let yourself or your family down: not at all 7. Trouble concentrating on things, such as reading the newspaper or watching television: not at all 8. Moving or speaking so slowly that other people could have noticed. Or the opposite - being so fidgety or restless that you have been moving around a lot more than usual: several days 9. Thoughts that you would be better off or of hurting yourself in some way: not at all Total score: 7 Depression Screening Interpretation: Positive Depression Screening Follow-up: Existing condition, In treatment and Follow-up Visit Requested Depression Screening Done: Yes 70739 - PHQ-9 Billing: Yes Source: Developed by Drs. Gene Martínez, Anitha Bennett, Leander Springer and colleagues, with an educational thomas from [employer]. Thrive Questionnaire Date Thrive assessed: 01/11/25 I am a: Patient What is your living situation today?: I have a steady place to live Within the past 12 months, did the food you bought not last and you didn't have the money to get more?: Never true Within the past 12 months, did you worry whether your food would run out before you got money to buy more?: Never true Do you have trouble paying for medicines?: No Do you have trouble getting transportation to medical appointments?: No Do you have trouble paying your heating and electricity bill?: No Do you have trouble taking care of your child, family member or friend?: No Do you have trouble with day-to-day activities such as bathing, preparing meals, shopping, managing finances, etc.?: No Are you currently unemployed and looking for a job?: No Are you interested in more education?: No Please select the resources that you would like help with: Housing/Penitentiary and Daily support Currently or been in a relationship where the following occur: I choose not to answer THRIVE Score: 0 AUDIT C Alcohol Use Questionnaire (AUDIT-C) 1. How often do you have a drink containing alcohol?: Never Total Score: 0 Score Reviewed/Action Taken: No GALINA-7 AMB Questionnaire GALINA-7 Date GALINA - 7 assessed: 01/11/25 Feeling nervous, anxious, or on edge: 2 = More than half the days Not being able to stop or control worryin = Not at all Worrying too much about different things: 0 = Not at all Trouble relaxin = Not at all Being so restless that it is hard to sit still: 0 = Not at all Becoming easily annoyed or irritable: 0 = Not at all Feeling afraid as if something awful might happen: 0 = Not at all Total GALINA-7 score (0-4 normal; 5-9 mild; 10-14 moderate; 15-21 severe): 2 Source: Developed by Drs. Gene Martínez, Anitha Bennett, Leander Springer and colleagues, with an educational thomas from [employer]. GALINA-7 Assessment Billing GALINA-7 Assessment Tool: GALINA-7 Assessment 63097 Review of Systems Const All systems reviewed & are unremarkable except as noted in HPI and below Card Denies chest pain at rest, Denies chest pain with activity, Denies edema, Denies irregular heart rhythm, Denies claudication, Denies dyspnea, Denies dyspnea on exertion, Denies orthopnea, Denies paroxysmal nocturnal dyspnea and Denies slow heart rate Resp Denies cough, Denies dyspnea and Denies dyspnea on exertion GI Denies abdominal pain, Denies change in bowel habits, Denies excessive flatus, Denies nausea and Denies vomiting Denies urinary incontinence, Denies urinary hesitancy and Denies urinary urgency Musc Denies abnormal gait, Denies atrophy, Denies deformity and Denies limited range of motion Skin/Breast Denies bleeding lesions, Denies changing lesions and Denies rash Neuro Denies abnormal gait and Denies lack of coordination Physical exam (Primary Care) Vital Signs: Last Vital Signs BP 126/70 01/11/25 15:38 BMI result Body Mass Index 41.2 BMI Assessment/Plan discussion: High BMI High, discussed plan: lifestyle, weight reduction, dietary and physical activity Tobacco/Smoking Status: Tobacco use Status Tobacco use date assessed 01/11/25 01/11/25 15:44 Patient Tobacco Use Status Never used Tobacco 01/11/25 15:44 e-Cigarette/Vaping Use Never Used 01/11/25 15:44 PHQ-9: PHQ-9 Score PHQ-9: Total score 7 01/11/25 16:06 Depression Screening Interpretation: Positive Depression Screening Follow-up: Existing condition, In treatment and Follow-up Visit Requested Thrive Assessment: Date of Thrive Assessment Date Thrive assessed 01/11/25 01/11/25 15:44 Currently or been in a relationship where the following occur: I choose not to answer Resp Effort & Inspection: normal respiratory effort Auscultation: clear to auscultation bilaterally Cardio Jugular venous distension: no JVD Rate: regular rate Rhythm: regular rhythm Heart sounds: S1 normal heart sound present and S2 normal heart sound present Extrem General: Yes full ROM Coding Level of Care Code Est Pt Level 4 (65300) Complex EM visit Add On G2211 Diagnoses Morbid obesity E66.01 Chronic systolic (congestive) heart failure I50.22 Non-ST elevated myocardial infarction (non-STEMI) I21.4 Mild recurrent major depression F33.0 Essential hypertension I10 Iron deficiency anemia D50.9 Gastroesophageal reflux disease, unspecified whether esophagitis present K21.9 Esophagitis presence: esophagitis presence not specified Additional Codes GALINA-7 Assessment Billing - GALINA-7 Assessment Tool: GALINA-7 Assessment 76380 ([id number]) PHQ-9 - 23256 - PHQ-9 Billing: Yes ([id number]) Time Spent (min) 23 Assessment & Plan Assessment & Plan (1) Morbid obesity: Code(s): E66.01 - Morbid (severe) obesity due to excess calories Category: Medical (2) Chronic systolic (congestive) heart failure: Code(s): I50.22 - Chronic systolic (congestive) heart failure Category: Medical (3) Non-ST elevated myocardial infarction (non-STEMI): Code(s): I21.4 - Non-ST elevation (NSTEMI) myocardial infarction Category: Medical (4) Mild recurrent major depression: Code(s): F33.0 - Major depressive disorder, recurrent, mild Category: Medical (5) Essential hypertension: Code(s): I10 - Essential (primary) hypertension Category: Medical (6) Iron deficiency anemia: Code(s): D50.9 - Iron deficiency anemia, unspecified Category: Medical (7) GERD (gastroesophageal reflux disease): Code(s): K21.9 - Gastro-esophageal reflux disease without esophagitis Category: Medical Qualifiers: Esophagitis presence: esophagitis presence not specified Qualified Code(s): K21.9 - Gastro-esophageal reflux disease without esophagitis Plan I will continue to monitor the patient's heart failure status closely, including encouraging compliance with daily weight tracking to identify any early signs of fluid retention. She will maintain her current medication regimen for heart failure, with regular follow-ups for renal and liver function due to potential drug-related side effects. Her anemia will be monitored through regular lab tests to manage and address any symptomatic concerns. Acid reflux will be managed with Omeprazole, with attention to any changes in efficacy. Patient was informed and verbally consented to the use of an ambient scribe for clinic note documentation during this visit. I discussed with the patient the critical importance of daily weight monitoring due to her heart failure status, as even small weight gains suggest possible fluid retention requiring immediate attention. We reviewed potential side effects of her medications, including those related to heart failure treatments, and emphasized the importance of adhering to her treatment plan. The patient understands the need for regular blood tests to monitor her anemia and liver enzyme levels, given her past medical history. I also discussed follow-up plans for her pacemaker and transporter radiology visits, ensuring continuity of care and regular assessment by specialists. Orders: Orders Vitamin D 25-OH Total Today E55.9 - Vitamin D deficiency, unspecified NT-proBNP Today I50.22 - Chronic systolic (congestive) heart failure Complete Blood Count Auto Diff Today D64.9 - Anemia, unspecified IRON PROFILE Today D64.9 - Anemia, unspecified Lipid Panel Today E78.5 - Hyperlipidemia, unspecified Comprehensive [place]. Panel Fast Today I50.22 - Chronic systolic (congestive) heart failure Medications: New tirzepatide (weight loss) (Zepbound) for 4 weeks 2.5 mg (0.5 mL) subcut QWEEK 4 weeks 2 mL 0RF E66.01 - Morbid (severe) obesity due to excess calories, I21.4 - Non-ST elevation (NSTEMI) myocardial infarction Patient Instructions: - Weigh yourself daily and report any sudden weight gain of 2-3 pounds - Continue all current medications as prescribed - Schedule regular lab tests to monitor anemia and liver function - Maintain follow-up appointments with your transporter radiology every six months - Seek medical attention if you experience more severe chest pain or shortness of breath
--- OUTSIDE RECORDS SUMMARY | 2025-01-11 17:50 | XMS_ITS | Clinical Summary ---
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 Name Role Phone Char Jacobo MD Primary Care Provider [phone] Social History Tobacco Use Types Packs/Day Years Used Date Smoking Tobacco: Never Assessed Comments Unknown Sex and Gender Information Value Date Recorded Sex Assigned at Not on file Legal Sex Female 1:48 PM EDT Gender Identity Not on file Sexual Orientation Not on file Plan of Treatment Health Maintenance Due Date Last Done Comments Hepatitis C Virus Screening 1964 HIV Screening 1977 DTaP/Tdap/Td Vaccines (1 - Tdap) 12/01/1983 Pap Smear (Ages 21-65) 1985 Mammogram 2004 Colonoscopy 2009 Pneumococcal Vaccines 50+ (1 of 1 - PCV) 2014 Zoster (Shingles) Vaccine (1 of 2) 2014 COVID-19 Vaccine ( - 2023-2 5 season) 2024 Influenza Vaccine 03/09/2025 RSV Vaccine 60 years and old er and Patients (1 - 1-dose 75+ series) 12/01/2039 Hepatitis B Vaccines Aged Out No long er eligible based on patient's age to complete [place] [id number] [facility] [employer] Care Teams Casting And Locker Room Servicer Relationship Specialty Start Date End Date Char Jacobo MD [address] [place] [address] PCP - General Family Medicine 03/04/22
== END 2025-01-11 16:13 | disposition home or self-care (01) ==
LOC: HO.HMCH 15:17
PROVIDERS: PCP Internal Medicine; Visit Provider Internal Medicine
DX: I10 Essential (primary) hypertension (principal); E66.01 Morbid (severe) obesity due to excess calories; I50.22 Chronic systolic (congestive) heart failure; Z68.41 Body mass index [BMI] 40.0-44.9, adult; I25.2 Old myocardial infarction; F33.0 Major depressive disorder, recurrent, mild; D50.9 Iron deficiency anemia, unspecified; K21.9 Gastro-esophageal reflux disease without esophagitis

== ENCOUNTER → 2025-01-11 15:17 | Outpatient (BNVA) | payer OTHER, SELFPAY | PROVIDERS: PCP Internal Medicine; Visit Provider Internal Medicine | DX: I11.0 Hypertensive heart disease with heart failure (principal); I50.22 Chronic systolic (congestive) heart failure; E66.9 Obesity, unspecified; G43.909 Migraine, unspecified, not intractable, without status migrainosus; K21.9 Gastro-esophageal reflux disease without esophagitis; I21.4 Non-ST elevation (NSTEMI) myocardial infarction; F33.0 Major depressive disorder, recurrent, mild; D50.9 Iron deficiency anemia, unspecified; Z68.41 Body mass index [BMI] 40.0-44.9, adult; Z79.899 Other long term (current) drug therapy | CPT/HCPCS: 96127; 99212 ==

== ENCOUNTER → 2025-01-16 23:59 | Outpatient (BNV) | payer OTHER, SELFPAY ==
--- NOTE | 2025-01-28 09:13 | A.OFFVIS_ITS ---
Intake Visit Reasons: Remote HF monitoring- [employer] Allergies gabapentin Allergy (Intermediate, Verified 01/11/25 15:41) memory loss ibuprofen Allergy (Intermediate, Verified 01/11/25 15:41) abdominal pain celecoxib (Celebrex) Allergy (Unknown, Verified 01/11/25 15:41) Unknown [facility] Medical History (Updated 01/11/25 @ 16:18 by Char Molina MD) Acute on chronic systolic and diastolic heart failure, NYHA class 3 Non-ST elevated myocardial infarction (non-STEMI) CHF exacerbation Biventricular ICD (implantable cardioverter-defibrillator) in place Pacemaker LBBB (left bundle branch block) Cardiomyopathy Mild recurrent major depression Moderate asthma Pneumonia Hospital discharge follow-up GERD (gastroesophageal reflux disease) Migraines Iron deficiency anemia HTN (hypertension) Surgical History S/P cardiac cath History of gastric bypass History of hip replacement, total History of hip replacement Family History Father CAD (coronary artery disease) Mother CAD (coronary artery disease) Son No problems noted. Daughter No problems noted. Son No problems noted. Social History Household Members: Spouse and Children Housing: House Do you presently have visiting nurse or other home services: No Alcohol intake: unknown Patient Tobacco Use Status: Never used Tobacco e-Cigarette/Vaping Use: Never Used Second Hand Smoke Exposure: No service: No Current occupational status: disabled Cognitive needs: No Hearing needs: No Vision needs: Yes Office Procedures Cardiac Device Check Cardiac Device Check Details: Date of service- 01/16/2025; based on impedance data and physiological variables, there is no evidence of worsening congestive heart failure. [id number] Cardiac Device Interrogation, cardio physiologic monitor Procedure code (CPT) selection complete Assessment & Plan Assessment & Plan (1) Biventricular ICD (implantable cardioverter-defibrillator) in place: Code(s): Z95.810 - Presence of automatic (implantable) cardiac defibrillator Category: Medical (2) Chronic systolic (congestive) heart failure: Code(s): I50.22 - Chronic systolic (congestive) heart failure Category: Medical Plan x Coding Level of Care Code Procedure Only Diagnoses Biventricular ICD (implantable cardioverter-defibrillator) in place Z95.810 Chronic systolic (congestive) heart failure I50.22 CPT Codes Cardiac Device Check - Cardiac Device 15: [id number] Cardiac Device Interrogation, cardio physiologic monitor ([id number])
== END ==
PROVIDERS: PCP Internal Medicine; Visit Provider Internal Medicine
DX: I50.22 Chronic systolic (congestive) heart failure (principal); Z95.810 Presence of automatic (implantable) cardiac defibrillator
CPT/HCPCS: 93297

== ENCOUNTER → 2025-02-11 23:59 | Outpatient (BNV) | payer OTHER, SELFPAY ==
--- NOTE | 2025-02-18 12:45 | MHC.OFFVIS ---
Intake Visit Reasons: Remote HF monitoring- [employer] Allergies gabapentin Allergy (Intermediate, Verified 01/11/25 15:41) memory loss ibuprofen Allergy (Intermediate, Verified 01/11/25 15:41) abdominal pain celecoxib (Celebrex) Allergy (Unknown, Verified 01/11/25 15:41) Unknown [facility] Medical History (Updated 01/11/25 @ 16:18 by Char Molina MD) Acute on chronic systolic and diastolic heart failure, NYHA class 3 Non-ST elevated myocardial infarction (non-STEMI) CHF exacerbation Biventricular ICD (implantable cardioverter-defibrillator) in place Pacemaker LBBB (left bundle branch block) Cardiomyopathy Mild recurrent major depression Moderate asthma Pneumonia Hospital discharge follow-up GERD (gastroesophageal reflux disease) Migraines Iron deficiency anemia HTN (hypertension) Surgical History S/P cardiac cath History of gastric bypass History of hip replacement, total History of hip replacement Family History Father CAD (coronary artery disease) Mother CAD (coronary artery disease) Son No problems noted. Daughter No problems noted. Son No problems noted. Social History Household Members: Spouse and Children Housing: House Do you presently have visiting nurse or other home services: No Alcohol intake: unknown Patient Tobacco Use Status: Never used Tobacco e-Cigarette/Vaping Use: Never Used Second Hand Smoke Exposure: No service: No Current occupational status: disabled Cognitive needs: No Hearing needs: No Vision needs: Yes Office Procedures Cardiac Device Check Cardiac Device Check Details: Date of service- 02/11/2025; based on impedance data and physiological variables, there is no evidence of worsening congestive heart failure. [id number] Cardiac Device Interrogation, cardio physiologic monitor Procedure code (CPT) selection complete Assessment & Plan Assessment & Plan (1) Biventricular ICD (implantable cardioverter-defibrillator) in place: Code(s): Z95.810 - Presence of automatic (implantable) cardiac defibrillator Category: Medical (2) Chronic systolic (congestive) heart failure: Code(s): I50.22 - Chronic systolic (congestive) heart failure Category: Medical (3) Non-ST elevated myocardial infarction (non-STEMI): Code(s): I21.4 - Non-ST elevation (NSTEMI) myocardial infarction Category: Medical Plan x Coding Level of Care Code Procedure Only Diagnoses Biventricular ICD (implantable cardioverter-defibrillator) in place Z95.810 Chronic systolic (congestive) heart failure I50.22 Non-ST elevated myocardial infarction (non-STEMI) I21.4 CPT Codes Cardiac Device Check - Cardiac Device 15: [id number] Cardiac Device Interrogation, cardio physiologic monitor ([id number])
== END ==
PROVIDERS: PCP Internal Medicine; Visit Provider Internal Medicine
DX: I50.22 Chronic systolic (congestive) heart failure (principal); Z95.810 Presence of automatic (implantable) cardiac defibrillator; I21.4 Non-ST elevation (NSTEMI) myocardial infarction
CPT/HCPCS: 93297

== ENCOUNTER → 2025-02-11 23:59 | Outpatient (BNV) | payer OTHER, SELFPAY ==
--- NOTE | 2025-02-18 12:46 | A.OFFVIS_ITS ---
Intake Visit Reasons: Remote device check- [employer] Allergies gabapentin Allergy (Intermediate, Verified 01/11/25 15:41) memory loss ibuprofen Allergy (Intermediate, Verified 01/11/25 15:41) abdominal pain celecoxib (Celebrex) Allergy (Unknown, Verified 01/11/25 15:41) Unknown [facility] Medical History (Updated 01/11/25 @ 16:18 by Char Molina MD) Acute on chronic systolic and diastolic heart failure, NYHA class 3 Non-ST elevated myocardial infarction (non-STEMI) CHF exacerbation Biventricular ICD (implantable cardioverter-defibrillator) in place Pacemaker LBBB (left bundle branch block) Cardiomyopathy Mild recurrent major depression Moderate asthma Pneumonia Hospital discharge follow-up GERD (gastroesophageal reflux disease) Migraines Iron deficiency anemia HTN (hypertension) Surgical History S/P cardiac cath History of gastric bypass History of hip replacement, total History of hip replacement Family History Father CAD (coronary artery disease) Mother CAD (coronary artery disease) Son No problems noted. Daughter No problems noted. Son No problems noted. 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 [id number] Cardiac Interrogation, implant defibrillator w/interim Procedure code (CPT) selection complete Assessment & Plan Assessment & Plan (1) Biventricular ICD (implantable cardioverter-defibrillator) in place: Code(s): Z95.810 - Presence of automatic (implantable) cardiac defibrillator Category: Medical (2) Chronic systolic (congestive) heart failure: Code(s): I50.22 - Chronic systolic (congestive) heart failure Category: Medical Plan x Coding Level of Care Code Procedure Only Diagnoses Biventricular ICD (implantable cardioverter-defibrillator) in place Z95.810 Chronic systolic (congestive) heart failure I50.22 CPT Codes Cardiac Device Check - Cardiac Device 13: [id number] Cardiac Interrogation, implant defibrillator w/interim ([id number])
== END ==
PROVIDERS: PCP Internal Medicine; Visit Provider Internal Medicine
DX: I50.22 Chronic systolic (congestive) heart failure (principal); Z95.810 Presence of automatic (implantable) cardiac defibrillator
CPT/HCPCS: 93295

== ENCOUNTER 2025-03-27 10:33 | Outpatient (AMB) | payer OTHER, SELFPAY ==
--- NOTE | 2025-03-27 10:42 | A.OFFVIS_ITS ---
Vital Signs 03/27/25 10:46 Height 4 ft 11 in Weight 201 lb 8.04 oz BMI 40.7 BP 126/64 Blood Pressure Location Rt brachial Position Sitting Pulse 84 Pulse Source Pulse Oximeter Intake Visit Reasons: 6m follow up/echo Business Applications Analyst Required: No Accompanied by: Self / Same As Patient Allergies gabapentin Allergy (Intermediate, Verified 01/11/25 15:41) memory loss ibuprofen Allergy (Intermediate, Verified 01/11/25 15:41) abdominal pain celecoxib (Celebrex) Allergy (Unknown, Verified 01/11/25 15:41) Unknown Medication List - Last Reconciled 03/27/25 by Luis Erickson MD bisoprolol fumarate 2.5 mg (1/2 x 5 mg) PO DAILY blood pressure monitor As directed dapagliflozin propanediol (Farxiga) 10 mg PO QAM furosemide 40 mg PO BID omeprazole 40 mg PO DAILY 90 days sacubitril-valsartan 24-26 mg (Entresto) 1 tab PO BID spironolactone 25 mg PO DAILY sumatriptan succinate 50 mg PO Q2H PRN 30 days tirzepatide (Mounjaro) 5 mg (0.5 mL) subcut QWEEK 4 weeks tirzepatide (weight loss) (Zepbound) 2.5 mg (0.5 mL) subcut QWEEK 4 weeks tramadol 50 mg PO Q8H 30 days trazodone 50 mg PO BEDTIME PRN 90 days HPI Comments Details: Montserrat returns for follow-up regarding cardiomyopathy. She has a history of nonischemic cardiomyopathy. She also has BiVICD in place. In 2022, admitted for chest pain symptoms. Troponins were significantly elevated. Due to this, she had another cardiac catheterization that however did not show any significant CAD. Etiology for the troponin elevation was not very clear. Overall, it seems she is doing fine. No clear-cut cardiac symptoms. When she is doing too much activity she may feel some shortness of breath, but otherwise fine. [facility] Medical History Acute on chronic systolic and diastolic heart failure, NYHA class 3 Non-ST elevated myocardial infarction (non-STEMI) CHF exacerbation Biventricular ICD (implantable cardioverter-defibrillator) in place Pacemaker LBBB (left bundle branch block) Cardiomyopathy Mild recurrent major depression Moderate asthma Pneumonia Hospital discharge follow-up GERD (gastroesophageal reflux disease) Migraines Iron deficiency anemia HTN (hypertension) Surgical History S/P cardiac cath History of gastric bypass History of hip replacement, total History of hip replacement Family History Father CAD (coronary artery disease) Mother CAD (coronary artery disease) Son No problems noted. Daughter No problems noted. Son No problems noted. Social History Household Members: Spouse and Children Housing: House Do you presently have visiting nurse or other home services: No Alcohol intake: unknown Patient Tobacco Use Status: Never used Tobacco e-Cigarette/Vaping Use: Never Used Second Hand Smoke Exposure: No service: No Current occupational status: disabled Cognitive needs: No Hearing needs: No Vision needs: Yes Review of Systems Const Denies chills, Denies fatigue, Denies fever(s), Denies frequent falls, Denies weakness, Denies weight gain and Denies weight loss ENT Denies dizziness Card Denies chest pain, Denies leg edema, Denies lightheadedness, Denies palpitations, Denies dyspnea and Denies dyspnea on exertion Resp Denies cough, Denies dyspnea and Denies dyspnea on exertion GI Denies hematochezia Musc Denies abnormal gait, Denies muscle weakness, Denies numbness, Denies radiating pain into limb and Denies tingling Neuro Denies abnormal gait, Denies dizziness, Denies frequent falls, Denies numbness, Denies tingling and Denies weakness Endo Denies fatigue and Denies palpitations Physical Exam Vital Signs: Last Vital Signs Pulse 84 03/27/25 10:46 BP 126/64 03/27/25 10:46 BMI result Body Mass Index 40.7 Const General: comfortable and no acute distress Orientation/consciousness: patient oriented x3 HEENT Other: Unremarkable Head: Yes normal to inspection Neck Neck: Yes normal visual inspection Chest Chest palpation & inspection: normal inspection of the chest Resp Auscultation: clear to auscultation bilaterally Cardio Palpation: normal PMI Heart sounds: S1 normal heart sound present, S2 normal heart sound present, no gallops, no murmurs and no rubs GI Palpation (GI): Soft to palpation Back/Spine/Pelvis Other: unremarkable Skin General skin exam: no rashes or lesions noted Neuro General: patient oriented x3 Extrem General: Yes normal to inspection Psych Mental Status: mental status grossly normal Assessment & Plan Assessment & Plan (1) Cardiomyopathy: Code(s): I42.9 - Cardiomyopathy, unspecified Category: Medical Qualifiers: Cardiomyopathy type: unspecified Qualified Code(s): I42.9 - Cardiomyopathy, unspecified (2) Biventricular ICD (implantable cardioverter-defibrillator) in place: Code(s): Z95.810 - Presence of automatic (implantable) cardiac defibrillator Category: Medical Plan In the last echocardiogram from 2022, LVEF 16%. [id number] mitral regurgitation. Dilated LV cavity. Repeat echocardiogram was ordered but not completed. Cardiac catheterization with normal coronary arteries. Etiology could be left bundle-branch related cardiomyopathy. Clinically, no overt evidence of congestive heart failure. Continue current medical regimen including bisoprolol, Entresto, Farxiga, spironolactone, Lasix. She has not done labs in a while then strongly advised her to get that done without any further delay. ICD can be monitored remotely. Follow-up in 6 months. Discussion Notes I discussed with the patient the importance of completing the echocardiogram and blood work to better understand her current health status and to address her symptoms of dyspnea on exertion. We agreed on a follow-up in six months to evaluate the results and adjust her care plan as necessary. Patient was informed and verbally consented to the use of an ambient scribe for clinic note documentation during this visit. Patient Instructions: - Schedule and complete the echocardiogram. - Complete the blood work ordered. - Follow up in six months for a review of test results and symptom monitoring. Coding Level of Care Code Est Pt Level 4 (01274) Complex EM visit Add On G2211 Diagnoses Cardiomyopathy, unspecified type I42.9 Cardiomyopathy type: unspecified Biventricular ICD (implantable cardioverter-defibrillator) in place Z95.810
[2025-03-27 10:46] VITALS: BP 126/64; PULSE 84; BMI 40.7
--- OUTSIDE RECORDS SUMMARY | 2025-03-27 12:00 | XMS_ITS | Clinical Summary ---
Author Organization [facility] Address [address] [place] [address] Care Team Providers Care Sales Demonstrator Name Role Phone Char Jacobo MD Primary Care Provider [phone] Social History Tobacco Use Types Packs/Day Years [...] complete [place] [id number] [facility] Care Teams Sales Demonstrator Relationship Specialty Start Date End Date Char Jacobo MD [address] [place] [address] PCP - General Family Medicine 03/04/22
--- OUTSIDE RECORDS SUMMARY | 2025-03-27 12:00 | XMS_ITS ---
Author Name [facility] Organization Unknown Care Team Organization Name Specialty Phone Email Start Date End Da [facility] FARHAT DOMINGUEZ Primary Care 03/06/20222021
== END 2025-03-27 11:02 | disposition home or self-care (01) ==
LOC: HO.HCS 10:34
PROVIDERS: PCP Internal Medicine; Visit Provider Internal Medicine
DX: I42.9 Cardiomyopathy, unspecified (principal); Z95.810 Presence of automatic (implantable) cardiac defibrillator
CPT/HCPCS: 99214

== ENCOUNTER → 2025-03-27 10:33 | Outpatient (BNVA) | payer OTHER, SELFPAY | PROVIDERS: PCP Internal Medicine; Visit Provider Internal Medicine | DX: I42.9 Cardiomyopathy, unspecified (principal); Z95.810 Presence of automatic (implantable) cardiac defibrillator | CPT/HCPCS: 99212 ==

== ENCOUNTER → 2025-03-29 23:59 | Outpatient (BNV) | payer OTHER, SELFPAY ==
--- NOTE | 2025-04-01 12:05 | MHC.OFFVIS ---
Intake Visit Reasons: Remote HF monitoring- [employer] Allergies gabapentin Allergy (Intermediate, Verified 01/11/25 15:41) memory loss ibuprofen Allergy (Intermediate, Verified 01/11/25 15:41) abdominal pain celecoxib (Celebrex) Allergy (Unknown, Verified 01/11/25 15:41) Unknown [facility] Medical History Acute on chronic systolic and diastolic heart failure, NYHA class 3 Non-ST elevated myocardial infarction (non-STEMI) CHF exacerbation Biventricular ICD (implantable cardioverter-defibrillator) in place Pacemaker LBBB (left bundle branch block) Cardiomyopathy Mild recurrent major depression Moderate asthma Pneumonia Hospital discharge follow-up GERD (gastroesophageal reflux disease) Migraines Iron deficiency anemia HTN (hypertension) Surgical History S/P cardiac cath History of gastric bypass History of hip replacement, total History of hip replacement Family History Father CAD (coronary artery disease) Mother CAD (coronary artery disease) Son No problems noted. Daughter No problems noted. Son No problems noted. Social History Household Members: Spouse and Children Housing: House Do you presently have visiting nurse or other home services: No Alcohol intake: unknown Patient Tobacco Use Status: Never used Tobacco e-Cigarette/Vaping Use: Never Used Second Hand Smoke Exposure: No service: No Current occupational status: disabled Cognitive needs: No Hearing needs: No Vision needs: Yes Office Procedures Cardiac Device Check Cardiac Device Check Details: Date of service- 03/29/2025; based on impedance data and physiological variables, there is no evidence of worsening congestive heart failure. [id number] Cardiac Device Interrogation, cardio physiologic monitor Procedure code (CPT) selection complete Assessment & Plan Assessment & Plan (1) Biventricular ICD (implantable cardioverter-defibrillator) in place: Code(s): Z95.810 - Presence of automatic (implantable) cardiac defibrillator Category: Medical (2) Chronic systolic (congestive) heart failure: Code(s): I50.22 - Chronic systolic (congestive) heart failure Category: Medical Plan x Coding Level of Care Code Procedure Only Diagnoses Biventricular ICD (implantable cardioverter-defibrillator) in place Z95.810 Chronic systolic (congestive) heart failure I50.22 CPT Codes Cardiac Device Check - Cardiac Device 15: [id number] Cardiac Device Interrogation, cardio physiologic monitor ([id number])
== END ==
PROVIDERS: PCP Internal Medicine; Visit Provider Internal Medicine
DX: I50.22 Chronic systolic (congestive) heart failure (principal); Z95.810 Presence of automatic (implantable) cardiac defibrillator
CPT/HCPCS: 93297

== ENCOUNTER 2025-04-19 14:04 | Outpatient (AMB) | payer OTHER, SELFPAY ==
[2025-04-19 14:07] VITALS: BP 104/70; PULSE 81; O2SAT 97; BMI 40.6
--- NOTE | 2025-04-19 14:07 | A.OFFPC_ITS ---
Vital Signs 04/19/25 14:07 Height 4 ft 11 in Weight 201 lb 4 oz BMI 40.6 BP 104/70 Blood Pressure Location Lt brachial Position Sitting Pulse 81 Pulse Oximetry (%) 97 Oxygen Delivery Method Room Air Intake Visit Reasons: Annual Exam Legal Secretary Receptionist Required: No Accompanied by: Self / Same As Patient Allergies gabapentin Allergy (Intermediate, Verified 04/19/25 14:19) memory loss ibuprofen Allergy (Intermediate, Verified 04/19/25 14:19) abdominal pain celecoxib (Celebrex) Allergy (Unknown, Verified 04/19/25 14:19) Unknown Medication List - Last Reconciled 04/19/25 by Char Molina MD bisoprolol fumarate 2.5 mg (1/2 x 5 mg) PO DAILY blood pressure monitor As directed dapagliflozin propanediol (Farxiga) 10 mg PO QAM furosemide 40 mg PO BID omeprazole 40 mg PO DAILY 90 days sacubitril-valsartan 24-26 mg (Entresto) 1 tab PO BID spironolactone 25 mg PO DAILY sumatriptan succinate 50 mg PO Q2H PRN 30 days tirzepatide (weight loss) (Zepbound) 2.5 mg (0.5 mL) subcut QWEEK 4 weeks tramadol 50 mg PO Q8H 30 days trazodone 50 mg PO BEDTIME PRN 90 days Tobacco use date assessed: 01/11/25 Dental Screening Dental Screen Date: 01/11/25 Did you have a dental visit in the last 12 months?: No Did you have a dental problem in the last 6 months where you did not have access to dental care?: No Was dental information given to patient?: No HPI HPI Comments History of Present Illness Details This is a 59-year-old female with morbid obesity, mild recurrent major depression, chronic systolic heart failure and history of non-STEMI that comes for her physical exam. Last mammogram done last year. Depression has been stable. Heart failure follow by cardiology and has not gain 5 lb in a week. Needs Tdap vaccine that will be done today. Declines any type of screening for colon cancer. She is morbidly obese with a BMI of 40.6 and was advised to diet and exercise to reach BMI goal less than 30. [facility] Medical History Acute on chronic systolic and diastolic heart failure, NYHA class 3 Non-ST elevated myocardial infarction (non-STEMI) CHF exacerbation Biventricular ICD (implantable cardioverter-defibrillator) in place Pacemaker LBBB (left bundle branch block) Cardiomyopathy Mild recurrent major depression Moderate asthma Pneumonia Hospital discharge follow-up GERD (gastroesophageal reflux disease) Migraines Iron deficiency anemia HTN (hypertension) Surgical History S/P cardiac cath History of gastric bypass History of hip replacement, total History of hip replacement Family History Father CAD (coronary artery disease) Mother CAD (coronary artery disease) Son No problems noted. Daughter No problems noted. Son No problems noted. Social History Household Members: Spouse and Children Housing: House Do you presently have visiting nurse or other home services: No Alcohol intake: unknown Patient Tobacco Use Status: Never used Tobacco e-Cigarette/Vaping Use: Never Used Second Hand Smoke Exposure: No service: No Current occupational status: disabled Cognitive needs: No Hearing needs: No Vision needs: Yes Questionnaire PHQ-9 Over the last 2 weeks, how often have you been bothered by any of the following problems? 1. Little interest or pleasure in doing things: not at all 2. Feeling down, depressed, or hopeless: not at all 3. Trouble falling or staying asleep, or sleeping too much: not at all 4. Feeling tired or having little energy: nearly every day 5. Poor appetite or overeating: nearly every day 6. Feeling bad about yourself - or that you are a failure or have let yourself or your family down: not at all 7. Trouble concentrating on things, such as reading the newspaper or watching television: not at all 8. Moving or speaking so slowly that other people could have noticed. Or the opposite - being so fidgety or restless that you have been moving around a lot more than usual: several days 9. Thoughts that you would be better off or of hurting yourself in some way: not at all Total score: 7 Depression Screening Interpretation: Positive Depression Screening Follow-up: Existing condition, In treatment and Follow-up Visit Requested Depression Screening Done: Yes 35879 - PHQ-9 Billing: Yes Source: Developed by Drs. Gene Martínez, Leander Colon and colleagues, with an educational thomas from [employer]. Thrive Questionnaire Date Thrive assessed: 01/11/25 I am a: Patient What is your living situation today?: I have a steady place to live Within the past 12 months, did the food you bought not last and you didn't have the money to get more?: Never true Within the past 12 months, did you worry whether your food would run out before you got money to buy more?: Never true Do you have trouble paying for medicines?: No Do you have trouble getting transportation to medical appointments?: No Do you have trouble paying your heating and electricity bill?: No Do you have trouble taking care of your child, family member or friend?: No Do you have trouble with day-to-day activities such as bathing, preparing meals, shopping, managing finances, etc.?: No Are you currently unemployed and looking for a job?: No Are you interested in more education?: No Currently or been in a relationship where the following occur: I choose not to answer THRIVE Score: 0 AUDIT C Alcohol Use Questionnaire (AUDIT-C) 1. How often do you have a drink containing alcohol?: Never 3. How often do you have six or more drinks on one occasion?: Never Total Score: 0 GALINA-7 AMB Questionnaire GALINA-7 Date GALINA - 7 assessed: 04/19/25 Feeling nervous, anxious, or on edge: 2 = More than half the days Not being able to stop or control worryin = Not at all Worrying too much about different things: 0 = Not at all Trouble relaxin = Not at all Being so restless that it is hard to sit still: 0 = Not at all Becoming easily annoyed or irritable: 2 = More than half the days Feeling afraid as if something awful might happen: 0 = Not at all Total GALINA-7 score (0-4 normal; 5-9 mild; 10-14 moderate; 15-21 severe): 4 Source: Developed by Anitha Walker Kurt Kroenke and colleagues, with an educational thomas from [employer]. GALINA-7 Assessment Billing GALINA-7 Assessment Tool: GALINA-7 Assessment 07348 Review of Systems Const All systems reviewed & are unremarkable except as noted in HPI and below Card Denies chest pain at rest, Denies chest pain with activity, Denies edema, Denies irregular heart rhythm, Denies claudication, Denies dyspnea, Denies dyspnea on exertion, Denies orthopnea, Denies paroxysmal nocturnal dyspnea and Denies slow heart rate Resp Denies cough, Denies dyspnea and Denies dyspnea on exertion GI Denies abdominal pain, Denies change in bowel habits, Denies excessive flatus, Denies nausea and Denies vomiting Skin/Breast Denies changing lesions Neuro Denies lack of coordination Physical exam (Primary Care) Vital Signs: Last Vital Signs Pulse 81 04/19/25 14:07 BP 104/70 04/19/25 14:07 Pulse Ox 97 04/19/25 14:07 Oxygen Delivery Method Room Air 04/19/25 14:07 BMI result Body Mass Index 40.6 BMI Assessment/Plan discussion: High BMI High, discussed plan: lifestyle, weight reduction, dietary and physical activity Tobacco/Smoking Status: Tobacco use Status Tobacco use date assessed 01/11/25 04/19/25 14:13 Patient Tobacco Use Status Never used Tobacco 04/19/25 14:13 e-Cigarette/Vaping Use Never Used 04/19/25 14:13 PHQ-9: PHQ-9 Score PHQ-9: Total score 7 04/19/25 14:32 Depression Screening Interpretation: Positive Depression Screening Follow-up: Existing condition, In treatment and Follow-up Visit Requested Thrive Assessment: Date of Thrive Assessment Date Thrive assessed 01/11/25 04/19/25 14:13 Currently or been in a relationship where the following occur: I choose not to answer HENMT Head: Yes normal to inspection, Yes normocephalic and Yes atraumatic Ears: external ears normal Eyes General: appearance normal, both eyes and all related structures Eyelids: Yes eyelids normal Conjunctivae: conjunctivae normal Neck Neck: Yes normal visual inspection and Yes supple Resp Effort & Inspection: normal respiratory effort Auscultation: clear to auscultation bilaterally Cardio Jugular venous distension: no JVD Rate: regular rate Rhythm: regular rhythm Heart sounds: S1 normal heart sound present and S2 normal heart sound present GI Inspection: Yes normal to inspection Palpation (GI): Soft to palpation and nontender Auscultation: normal bowel sounds Skin General skin exam: no rashes or lesions noted Neuro General: no focal motor deficits Extrem General: Yes full ROM Psych Appearance: grossly normal Immunizations Boostrix Tdap 2.5 Lf unit-8 mcg-5 Lf/0.5 mL intramuscular syringe Performing Provider: Char Molina MD [place]forming [place] [facility] Administered by: TENA Zacarias on 04/19/25 14:34 Dose Route Admin Location Dispensed Lot Number Expiration Date NDC Newborn Hearing Screener 0.5 mL IM Right Deltoid 0.5 mL [id number] 06/28/27 [id number] Mobile Backstage Total Dispensed Waste 0.5 mL 0 % VIS Given Date VIS Provided VIS Publication Date 04/19/25 Single Vaccine 21 Eligibility Eligibility Date Funding Source Not [facility] Eligible 04/19/25 Private Coding Level of Care Code Est Pt Prev Care 40-64y(46580) Diagnoses Physical exam Z00.00 Morbid obesity E66.01 Mild recurrent major depression F33.0 Chronic systolic (congestive) heart failure I50.22 Non-ST elevated myocardial infarction (non-STEMI) I21.4 Additional Codes GALINA-7 Assessment Billing - GALINA-7 Assessment Tool: GALINA-7 Assessment 79500 ([id number]) PHQ-9 - 32834 - PHQ-9 Billing: Yes ([id number]) Time Spent (min) 31 Assessment & Plan Assessment & Plan (1) Physical exam: Code(s): Z00.00 - Encounter for general adult medical examination without abnormal findings Category: Medical (2) Morbid obesity: Code(s): E66.01 - Morbid (severe) obesity due to excess calories Category: Medical (3) Mild recurrent major depression: Code(s): F33.0 - Major depressive disorder, recurrent, mild Category: Medical (4) Chronic systolic (congestive) heart failure: Code(s): I50.22 - Chronic systolic (congestive) heart failure Category: Medical (5) Non-ST elevated myocardial infarction (non-STEMI): Code(s): I21.4 - Non-ST elevation (NSTEMI) myocardial infarction Category: Medical Plan Repeat physical in a year. Do mammogram this month. Tdap vaccine place today and next Tdap should be 2034. Do diet and exercise to reach BMI goal less than 30. Weight daily and the goal is to not gain 5 lb in a week. Continue current meds. Orders: Orders MM tomosynthesis screening BI Today Z12.31 - Encounter for screening mammogram for malignant neoplasm of breast Lipid Panel Today E78.5 - Hyperlipidemia, unspecified IRON PROFILE Today D64.9 - Anemia, unspecified Complete Blood Count Auto Diff Today D64.9 - Anemia, unspecified Vitamin D 25-OH Total Today E55.9 - Vitamin D deficiency, unspecified Vitamin B12 and Folate Today E53.8 - Deficiency of other specified B group vitamins Comprehensive Notrees. Panel Fast Today I50.22 - Chronic systolic (congestive) heart failure NT-proBNP Today I50.22 - Chronic systolic (congestive) heart failure TDaP Immunization Today Z23 - Encounter for immunization
--- OUTSIDE RECORDS SUMMARY | 2025-04-19 17:53 | XMS_ITS | Clinical Summary ---
Author Organization [facility] Address [address] [place] [address] Care Team Providers Care Plasma Center Technician Name Role Phone Char Jacobo MD Primary Care Provider [phone] Social History Tobacco Use Types Packs/Day Years [...] complete this [place] [phone] [facility] [employer] Care Teams Plasma Center Technician Relationship Specialty Start Date End Date Char Jacobo MD [address] [place] [address] PCP - General Family Medicine 03/04/22
== END 2025-04-19 14:38 | disposition home or self-care (01) ==
LOC: HO.HMCH 14:04
PROVIDERS: PCP Internal Medicine; Visit Provider Internal Medicine
DX: Z00.00 Encounter for general adult medical examination without abnormal findings (principal); E66.01 Morbid (severe) obesity due to excess calories; I50.22 Chronic systolic (congestive) heart failure; Z68.41 Body mass index [BMI] 40.0-44.9, adult; I25.2 Old myocardial infarction; F33.0 Major depressive disorder, recurrent, mild; Z23 Encounter for immunization

== ENCOUNTER → 2025-04-19 14:04 | Outpatient (BNVA) | payer OTHER, SELFPAY | PROVIDERS: PCP Internal Medicine; Visit Provider Internal Medicine | DX: Z00.00 Encounter for general adult medical examination without abnormal findings (principal); Z23 Encounter for immunization; E66.01 Morbid (severe) obesity due to excess calories; F33.0 Major depressive disorder, recurrent, mild; I50.22 Chronic systolic (congestive) heart failure; I25.2 Old myocardial infarction; Z13.31 Encounter for screening for depression; Z13.39 Encounter for screening examination for other mental health and behavioral disorders | CPT/HCPCS: 90471; 90715; 96127; 99396 ==

== ENCOUNTER → 2025-04-29 23:59 | Outpatient (BNV) | payer OTHER, SELFPAY ==
--- NOTE | 2025-05-03 08:38 | A.OFFVIS_ITS ---
Intake Visit Reasons: Remote HF monitoring- [employer] Allergies gabapentin Allergy (Intermediate, Verified 04/19/25 14:19) memory loss ibuprofen Allergy (Intermediate, Verified 04/19/25 14:19) abdominal pain celecoxib (Celebrex) Allergy (Unknown, Verified 04/19/25 14:19) Unknown [facility] Medical History Acute on chronic systolic and diastolic heart failure, NYHA class 3 Non-ST elevated myocardial infarction (non-STEMI) CHF exacerbation Biventricular ICD (implantable cardioverter-defibrillator) in place Pacemaker LBBB (left bundle branch block) Cardiomyopathy Mild recurrent major depression Moderate asthma Pneumonia Hospital discharge follow-up GERD (gastroesophageal reflux disease) Migraines Iron deficiency anemia HTN (hypertension) Surgical History S/P cardiac cath History of gastric bypass History of hip replacement, total History of hip replacement Family History Father CAD (coronary artery disease) Mother CAD (coronary artery disease) Son No problems noted. Daughter No problems noted. Son No problems noted. Social History Household Members: Spouse and Children Housing: House Do you presently have visiting nurse or other home services: No Alcohol intake: unknown Patient Tobacco Use Status: Never used Tobacco e-Cigarette/Vaping Use: Never Used Second Hand Smoke Exposure: No service: No Current occupational status: disabled Cognitive needs: No Hearing needs: No Vision needs: Yes Office Procedures Cardiac Device Check Cardiac Device Check Details: Date of service- 04/29/2025; based on impedance data and physiological variables, there is no evidence of worsening congestive heart failure. [id number] Cardiac Device Interrogation, cardio physiologic monitor Procedure code (CPT) selection complete Assessment & Plan Assessment & Plan (1) Biventricular ICD (implantable cardioverter-defibrillator) in place: Code(s): Z95.810 - Presence of automatic (implantable) cardiac defibrillator Category: Medical (2) Chronic systolic (congestive) heart failure: Code(s): I50.22 - Chronic systolic (congestive) heart failure Category: Medical Plan x Coding Level of Care Code Procedure Only Diagnoses Biventricular ICD (implantable cardioverter-defibrillator) in place Z95.810 Chronic systolic (congestive) heart failure I50.22 CPT Codes Cardiac Device Check - Cardiac Device 15: [id number] Cardiac Device Interrogation, cardio physiologic monitor ([id number])
== END ==
PROVIDERS: Visit Provider Internal Medicine
DX: I50.22 Chronic systolic (congestive) heart failure (principal); Z95.810 Presence of automatic (implantable) cardiac defibrillator
CPT/HCPCS: 93297

== ENCOUNTER → 2025-05-30 23:59 | Outpatient (BNV) | payer OTHER, SELFPAY ==
--- NOTE | 2025-06-10 15:40 | MHC.OFFVIS ---
Intake Visit Reasons: Remote device check- [employer] Allergies gabapentin Allergy (Intermediate, Verified 04/19/25 14:19) memory loss ibuprofen Allergy (Intermediate, Verified 04/19/25 14:19) abdominal pain celecoxib (Celebrex) Allergy (Unknown, Verified 04/19/25 14:19) Unknown [facility], [facility] Medical History Acute on chronic systolic and diastolic heart failure, NYHA class 3 Non-ST elevated myocardial infarction (non-STEMI) CHF exacerbation Biventricular ICD (implantable cardioverter-defibrillator) in place Pacemaker LBBB (left bundle branch block) Cardiomyopathy Mild recurrent major depression Moderate asthma Pneumonia Hospital discharge follow-up GERD (gastroesophageal reflux disease) Migraines Iron deficiency anemia HTN (hypertension) Surgical History S/P cardiac cath History of gastric bypass History of hip replacement, total History of hip replacement Family History Father CAD (coronary artery disease) Mother CAD (coronary artery disease) Son No problems noted. Daughter No problems noted. Son No problems noted. Social History Household Members: Spouse and Children Housing: House Do you presently have visiting nurse or other home services: No Alcohol intake: unknown Patient Tobacco Use Status: Never used Tobacco e-Cigarette/Vaping Use: Never Used Second Hand Smoke Exposure: No service: No Current occupational status: disabled Cognitive needs: No Hearing needs: No Vision needs: Yes Office Procedures Cardiac Device Check Cardiac Device Check Details: Date of service- 05/30/2025 ; Battery life >5 years; normal lead parameters; effective [employer] 98%; no significant arrhythmias. Overall normal device function. [id number] Cardiac Interrogation, implant defibrillator w/interim Procedure code (CPT) selection complete Assessment & Plan Assessment & Plan (1) Biventricular ICD (implantable cardioverter-defibrillator) in place: Code(s): Z95.810 - Presence of automatic (implantable) cardiac defibrillator Category: Medical (2) Chronic systolic (congestive) heart failure: Code(s): I50.22 - Chronic systolic (congestive) heart failure Category: Medical Plan x Coding Level of Care Code Procedure Only Diagnoses Biventricular ICD (implantable cardioverter-defibrillator) in place Z95.810 Chronic systolic (congestive) heart failure I50.22 CPT Codes Cardiac Device Check - Cardiac Device 13: [id number] Cardiac Interrogation, implant defibrillator w/interim ([id number])
== END ==
PROVIDERS: Visit Provider Internal Medicine
DX: I50.22 Chronic systolic (congestive) heart failure (principal); Z95.810 Presence of automatic (implantable) cardiac defibrillator
CPT/HCPCS: 93295

== ENCOUNTER → 2025-08-01 15:19 | Outpatient (BNV) | payer OTHER, SELFPAY | PROVIDERS: Visit Provider Internal Medicine | DX: Z95.810 Presence of automatic (implantable) cardiac defibrillator (principal) | CPT/HCPCS: 93297 ==